=== PATIENT | female | born 1960 | race Caucasian/White ===

== ENCOUNTER 2024-04-23 15:59 | Emergency (ER) | payer BC, SELFPAY ==
[2024-04-23 16:09] VITALS: BP 162/84; PULSE 80; RESP 18; TEMP 36.2; O2SAT 95; BMI 68.7
--- NOTE | 2024-04-23 16:44 | CRLHL7_ITS ---
For Patients: As a result of the Cures Act, medical imaging exams and procedure reports are released immediately into your electronic medical record. You may view this report before your referring provider. If you have questions, please contact your health care provider. Indication: Injury Technique: Three views of the left knee Comparison: None Findings/Impression: No acute fracture or malalignment. Small suprapatellar joint effusion. Minimal tricompartmental osteoarthritic degenerative changes. No suspicious osseous lesions. Os fabella. The soft tissues are unremarkable. Dictated by Rodolfo Ambriz MD @ 04/23/2024 5:42:10 PM (Electronically Signed)
--- NOTE | 2024-04-23 18:14 | ED_ITS ---
HPI - Extremity Injury (Lower) General Time Seen by Provider: 18:14 Date Seen: 04/23/24 Chief Complaint: Extremity Pain/Injury, Lower Stated Complaint: Left knee pain Time Seen by Provider: 04/23/24 18:14 Source: patient and RN notes reviewed Mode of arrival: ambulatory Limitations: no limitations History of Present Illness HPI Narrative: Tarah is a very pleasant 64-year-old female with a remote history of gout, severely elevated BMI of 68, who comes to the emergency room with complaints of left knee pain. Patient notes that she also has sciatica but usually feels that pain going down the outside of her left leg but today notes pain on the inside of her right knee. She states that on April 04 she was at work and when she stood up she felt a crack in her left knee. She was able to walk on it afterwards but it was painful. It has become gradually worse and last week she saw physician curriculum assistant principal Bessy Ham at the [facility] at which time she was put on prednisone. Patient feels that her pain has actually gotten worse since that time. She describes a lot of pressure in the knee and states that she has ?done with the pain?. She notes that her blood sugars are elevated because she is taking prednisone. She notes that the prednisone has also not helped her sciatica. She has not noticed any redness in the knee. She denies any other tr auma. She notes normal x-rays at the [facility]. Patient noted to have a pyelonephritis last month treated with antibiotics. Has not had fever or chills since that time. Related Data Home Medications ?Medication ?Instructions ?Recorded ?Confirmed albuterol sulfate 2.5 mg/3 mL mg 04/23/24 (0.083 %) solution for nebulization albuterol sulfate 90 mcg/actuation inhalation 04/23/24 aerosol inhaler budesonide 0.5 mg/2 mL suspension mg 04/23/24 for nebulization cyclobenzaprine 10 mg tablet 10 mg PO 3XD 04/23/24 04/23/24 dulaglutide 3 mg/0.5 mL mg subcut 04/23/24 subcutaneous [facility] epinephrine 0.3 mg/0.3 mL 1 mg IM DAILY 04/23/24 04/23/24 injection, auto-injector escitalopram oxalate 20 mg tablet 20 mg PO DAILY 04/23/24 04/23/24 fluconazole 150 mg tablet PO 04/23/24 fluticasone propionate 115 2 puff inhalation BID 04/23/24 04/23/24 mcg-salmeterol 21 mcg/actuation HFA inhaler (Advair HFA) hydrochlorothiazide 25 mg tablet 25 mg PO DAILY 04/23/24 04/23/24 insulin degludec 100 unit/mL 70 unit subcut HS 04/23/24 04/23/24 subcutaneous solution (Tresiba U-100 Insulin) insulin lispro 100 unit/mL subcut 04/23/24 subcutaneous solution (Humalog U-100 Insulin) levothyroxine 50 mcg tablet 50 mcg PO DAILY 04/23/24 04/23/24 methylprednisolone 4 mg tablets in mg PO DIRECTED 04/23/24 a dose pack metoprolol succinate 50 mg 50 mg PO DAILY 04/23/24 04/23/24 tablet,extended release 24 hr nystatin 100,000 unit/gram topical 1 applic topical BID 04/23/24 04/23/24 cream omeprazole 40 mg capsule,delayed 40 mg PO BID 04/23/24 04/23/24 release ondansetron 4 mg disintegrating 4 mg PO Q8H PRN nausea/vomiting 04/23/24 04/23/24 tablet sertraline 50 mg tablet 50 mg PO DAILY 04/23/24 04/23/24 simvastatin 10 mg tablet 10 mg PO QPM 04/23/24 04/23/24 tiotropium bromide 2.5 2 puff inhalation DAILY 04/23/24 04/23/24 mcg/actuation mist for inhalation (Spiriva Respimat) Allergies Allergy/AdvReac Type Severity Reaction Status Date / Time lisinopril Allergy Mild cough Verified 04/23/24 16:18 metformin (From Glucophage) Allergy Mild vomiting Verified 04/23/24 16:18 azithromycin (From Zithromax) Allergy chest pain Verified 04/23/24 16:18 and difficulty breathing beetles Allergy swelling Uncoded 04/23/24 16:18 robertson garrick and ragweed Allergy wheezing Uncoded 04/23/24 16:18 Review of Systems Status of ROS: Reports: 6 or more systems reviewed and unremarkable except as noted in History and below Const: Denies: fever or chills Exam Narrative: Exam Narrative: Patient is alert and oriented. She is lying on the gurney in room 6. No acute distress. External ears eyes nose clear. Heart with regular rate and rhythm and lungs are clear bilaterally. Abdomen soft. Examination of the left knee shows tenderness along the medial joint line. No evidence of effusion or edema or erythema. Due to body habitus it would be challenging to rule out infusion completely. No pain with palpation in the popliteal fossa. Kneecap is mobile without pain. Pain Const: Vital Signs, click to edit/add: Vital Signs - 24 hr 04/23/24 16:09 Temperature 97.1 F L Pulse Rate [Pulse Oximeter] 80 Respiratory Rate 18 Blood Pressure [Ri ght Forearm] 162/84 H Pulse Oximetry 95 Oxygen Delivery Me thod Room Air Documenting provider has reviewed patient's vital signs: yes Course Course ED Course: Differential diagnosis includes but is not limited to gout, internal derangement of the knee, occult fracture. At this time patient notes negative x-rays at the [facility]. Will attempt CT of the left knee although I do have concerns regarding body habitus compromising this test. Patient is receptive to this plan. Reevaluation(s) Reevaluation #1: Patient noted continued pain and thus did give her a dose of [place] 5/325 p.o.. She did not think it helped very much but I think objectively she seems somewhat improved. Vital Signs Vital signs: Initial Vital Signs Temperature 97.1 F L 04/23/24 16:09 Temperature Source Temporal Artery Scan 04/23/24 16:09 Pulse Rate 80 04/23/24 16:09 Respiratory Rate 18 04/23/24 16:09 Blood Pressure 162/84 H 04/23/24 16:09 Blood Pressure Mean 110 H 04/23/24 16:09 Blood Pressure Position Sitting 04/23/24 16:09 Pulse Oximetry 95 04/23/24 16:09 Oxygen Delivery Method Room Air 04/23/24 16:09 Vital Signs Temperature 97.1 F L 04/23/24 16:09 Pulse Rate 80 04/23/24 16:09 Respiratory Rate 18 04/23/24 16:09 Blood Pressure 162/84 H 04/23/24 16:09 Pulse Oximetry 95 04/23/24 16:09 Oxygen Delivery Method Room Air 04/23/24 16:09 Temperature 97.1 F L 01/03/25 16:09 Pulse Rate 80 04/23/24 16:09 Respiratory Rate 18 04/23/24 16:09 Blood Pressure 162/84 H 04/23/24 16:09 Pulse Oximetry 95 04/23/24 16:09 Oxygen Delivery Method Room Air 04/23/24 16:09 Medications Administered Medications: Discontinued Medications Generic Name Dose Route Start Last Admin Trade Name Kamran PRN Reason Stop Dose Admin Hydrocodone Bitart/Acetaminophen 1 tab 04/23/24 19:52 04/23/24 20:05 Hydrocodone-Acetamin 5-325 Mg 1 Tab PO 04/23/24 19:53 1 tab ONCE ONE Administration MDM - Extremity Injury (Lower) MDM Narrative Medical decision making narrative: 1. Left knee pain-patient had onset of left knee pain after getting up suddenly and feeling a crack in her knee on 04/04/2024. Since that time she has had worsening pain and recent medications which include prednisone, ibuprofen, Tylenol and Flexeril do not seem to help. No evidence of erythema and it is not warm to the touch to suggest a septic joint as patient does not have tachycardia or a fever. Remote history of gout but patient again does not have a red joint and has been on prednisone which certainly should of helped. I suspect that there is trauma to the ligament or cartilage of the knee based on her history and worsening symptoms. I think that continued ambulating especially given elevated BMI has caused worsening symptoms. There is edema on the anterior knee but no evidence of fluid collection or abscess. I would like the patient to stay off her knee as much as possible. We will put her in a knee immobilizer. She has a walker at home which I would like her to use. To the best of her ability would like her to stay off her knee. Did talk about need for compression stocking and movement of the ankles and calves to prevent any DVT. I would have her follow-up with orthopedics for re-evaluation. She likely needs an MRI but would need an open-sided MRI to accommodate her elevated BMI. 2. Disposition-home at this time. Will give patient [place] 5/325 1-2 tabs p.o. q.4-6 hours p.r.n. pain 18. With no refills. Further refills need to go through her primary MD. She denies a history of narcotic addiction. Would like her to limit her ibuprofen as she is currently on Medrol Dosepak. Would have her limit Flexeril and [place] together as she does have sleep apnea. Would recommend wearing her CPAP when she is sleeping. Follow-up with orthopedics as directed. Return to the ER for worsening symptoms especially fever chills redness and as needed. Medical Records Attestation: I reviewed the patient's medical records. Imaging Data Left knee CT: Attestation: I have reviewed the pertinent imaging results. My impression: . Radiologist's impression: No evident acute displaced fracture. Mild lateral patellar translation. Moderate degenerative changes of the knee. Small superior and inferior patellar enthesophytes. Small knee joint effusion. No Campoverde`s cyst. There are atherosclerotic vascular calcifications. Mild subcutaneous edema most conspicuous anteriorly. IMPRESSION: 1. No evident acute displaced fracture. 2. Moderate degenerative change of the knee. 3. Small knee joint effusion. 4. Mild subcutaneous edema in the knee most conspicuous anteriorly. Left knee x-ray: Attestation: I have reviewed the pertinent imaging results. Radiologist's impression: Findings/Impression: No acute fracture or malalignment. Small suprapatellar joint effusion. Minimal tricompartmental osteoarthritic degenerative changes. No suspicious osseous lesions. Os fabella. The soft tissues are unremarkable. Discharge Plan Discharge Clinical Impression: Knee pain, left Qualifiers: Chronicity: unspecified Qualified Code(s): M25.562 - Pain in left knee Patient Disposition: Home, Self-Care Condition: Improved Additional Instructions: Recommend continuing Medrol Dosepak. You may use Vicodin which is a combination medication of a narcotic called hydrocodone and Tylenol as needed for pain as directed. I have put this in our [facility] meds machine. Please do not use ibuprofen at this time while on a steroid. Once you are finished with the steroid you may returned ibuprofen as needed. Note that Vicodin can cause constipation so you may want to start on a stool softener. Follow-up with our orthopedic specialists by calling [phone] for appointment. You likely will need MRI. Stay off feet for now. However, please consider using support stockings as well as moving legs to prevent formation of blood clots. Return to the emergency room for fever, worsening symptoms and as needed. Prescriptions: No Action cyclobenzaprine 10 mg tablet 10 mg PO 3XD albuterol sulfate 2.5 mg /3 mL (0.083 %) solution for nebulization Patient Comments: [NO ORIGINAL SIG] fluconazole 150 mg tablet PO budesonide 0.5 mg/2 mL suspension for nebulization Patient Comments: [NO ORIGINAL SIG] hydrochlorothiazide 25 mg tablet 25 mg PO DAILY epinephrine 0.3 mg/0.3 mL auto-injector 1 mg IM DAILY albuterol sulfate 90 mcg/actuation HFA aerosol inhaler inhalation escitalopram oxalate 20 mg tablet 20 mg PO DAILY fluticasone propion-salmeterol [Advair HFA] 115-21 mcg/actuation HFA aerosol inhaler 2 puff inhalation BID insulin degludec [Tresiba U-100 Insulin] 100 unit/mL solution 70 unit subcut HS Trulicity 3 mg/0.5 mL pen injector subcut metoprolol succinate 50 mg tablet extended release 24 hr 50 mg PO DAILY simvastatin 10 mg tablet 10 mg PO QPM omeprazole 40 mg capsule,delayed release(DR/EC) 40 mg PO BID levothyroxine 50 mcg tablet 50 mcg PO DAILY nystatin 100,000 unit/gram cream 1 applic topical BID insulin lispro [Humalog U-100 Insulin] 100 unit/mL solution subcut methylprednisolone 4 mg tablets,dose pack PO DIRECTED ondansetron 4 mg tablet,disintegrating 4 mg PO Q8H PRN (Reason: nausea/vomiting) sertraline 50 mg tablet 50 mg PO DAILY Spiriva Respimat 2.5 mcg/actuation mist 2 puff inhalation DAILY Follow Up/Referrals: Antonette James MD [Primary Care Provider] - Stand Alone Forms: [employer] Info Instructions
--- NOTE | 2024-04-23 18:46 | CRLHL7_ITS ---
For Patients: As a result of the Century Cures Act, medical imaging exams and procedure reports are released immediately into your electronic medical record. You may view this report before your referring provider. If you have questions, please contact your health care provider. INDICATION: Three weeks of medial knee pain COMPARISON: Same day left knee radiograph TECHNIQUE: CT of the left knee without intravenous contrast. FINDINGS: No evident acute displaced fracture. Mild lateral patellar translation. Moderate degenerative changes of the knee. Small superior and inferior patellar enthesophytes. Small knee joint effusion. No Campoverde`s cyst. There are atherosclerotic vascular calcifications. Mild subcutaneous edema most conspicuous anteriorly. IMPRESSION: 1. No evident acute displaced fracture. 2. Moderate degenerative change of the knee. 3. Small knee joint effusion. 4. Mild subcutaneous edema in the knee most conspicuous anteriorly. Please note that all CT scans at this facility use dose modulation, iterative reconstruction, and/or weight-based dosing when appropriate to reduce radiation dose to as low as reasonably achievable. Dictated by Jermain Fuentes MD @ 04/23/2024 8:34:42 PM (Electronically Signed)
--- OUTSIDE RECORDS SUMMARY | 2024-04-23 18:51 | XMS_ITS | Clinical Summary ---
Author Organization [employer] [facility] Address [place], [place] [address] Care Team Providers Care Gravedigger Name Role Phone Antonette James MD Primary Care Prov ider Andrew Bower Unavailable Unavailab Ramirez Garcia PharmD Unavailable [phone] Keyanna Figueroa RN Unavailable [phone] Allergies Active Allergy Reactions Criticality Noted Date Comments Metformin GI Upset 04/28/2007 Ramirez Hernandez (Solidago Canadensis) Wheezing 04/28/2007 Hymenoptera Allergenic Extract Edema 04/28/2007 Beetle bite Lisinopril Cough 09/26/2016 Was clear she doesn't want to try anything with remote chance of breathing difficulties Also classifies this as an intolerance, not a true allergy Losartan Cough 09/26/2016 Ragweed Wheezing 04/28/2007 Azithromycin Laryngospasm 04/28/2007 Medications MULTIVITAMIN TAB take 1 tablet by oral route once daily with food 0 04/28/19 08 Active CLARITIN 10 MG TAB take 1 tablet (10 mg) by oral route once daily 0 04/28/19 08 Active ibuprofen (ADVIL; MOTRIN) 200 mg tablet Take 1 tablet by mouth every 4 hours if needed. 0 12/29/19 10 Active cholecalciferol (VITAMIN D) 1,000 unit capsule Take 2 capsules by mouth once daily. 0 06/27/19 11 Active aspirin enteric coated (HALFPRIN) 162 mg tablet Take 1 tablet by mouth once daily with a meal. Takes 180 mg daily 06/05/19 16 Active ONETOUCH [id number] :Diabetes mellitus type 2, uncomplicated (HC) 1 Each 0 06/05/19 16 Active omega-3 fatty acids-vitamin E (FISH OIL) 1,000 mg cap Take 1 capsule by mouth 2 times daily. 0 06/06/19 17 Active tfjpwmoh-jmem-bhu 0-B-hlxo-bosw (OSTEO BI-FLEX TRIPLE STRENGTH) 750 mg-644 mg- 30 mg-1 mg tabIndications:Al lergic arthritis of left ankle Take by mouth 2 times daily. 0 10/29/19 18 Active acetaminophen (TYLENOL EXTRA STRGTH) 500 mg tablet Take 2 tablets by mouth 2 times daily. Max acetaminophen dose: 4000mg in 24 hrs. Take with 200 mg ibuprofen 500 tablet 12/26/19 19 Active guaiFENesin (MUCINEX) 600 mg Extended-Release tabletIndications :Cough Take 1-2 tablets by mouth 2 times daily if needed for Expectoration. 30 tablet 1 04/05/20 19 Active inhalational spacing deviceIndications :Moderate persistent asthma without complication For home use. Use with inhalers 1 Each 1 5:19 PM CDT 09/13/19 21 Active acetaminophen (TYLENOL) 325 mg tabletIndications :S/P D&C (status post dilation and curettage) Take 1-2 Tablets (325-650 mg) by mouth every 4 hours if needed (mild pain). Max acetaminophen dose: 4000mg in 24 hrs. 100 Tablet 08/17/19 23 Active levonorgestrel (Mirena) 20 mcg/24 hours (8 yrs) 52 mg intrauterine device (IUD) Inject 1 Device intrauterine one time. 0 Active predniSONE (DELTASONE) 10 mg tabletIndications :Wheezing,Moderat e persistent asthma with exacerbation Take 6 tablets by mouth once daily for 3 days, then decrease by one tablet every 3 days. 62 Tablet 4 2:52 PM CDT 07/14/19 24 Active NebulizerIndicati ons:Wheezing,Mode rate persistent asthma with exacerbation Nebulizer, disposable neb kit x 4, reuseable neb kit x 1, mask x 1, filters x 1. Frequency of use: daily; Medication: albuterol Length of need: prn months 1 Each 07/14/19 24 Active predniSONE (DELTASONE) 10 mg tabletIndications :Moderate persistent asthma without complication 4 tabs for 5 days then decrease by 1 tab every 3 day until 1/2 tab for 4 days then stop. 40 Tablet 4 4:04 PM CDT 07/29/19 24 Active dulaglutide (Trulicity) 3 mg/0.5 mL subcutaneous penIndications:Di abetes mellitus without complication (HC) Inject 3 mg subcutaneous once weekly. mondays 4 mL 6 4 3:48 PM MANAGER DIVISION 11/27/19 24 Active EPINEPHrine (EpiPen) 0.3 mg/0.3 mL auto-injectorIndi cations:Allergic reaction, subsequent encounter Inject 0.3 mg intramuscular one time if needed for Allergic Reaction. 2 Each 4 4 3:13 PM CDT 11/27/19 24 Active fluticasone (50 mcg per actuation) nasal solution (FLONASE)Indicati ons:Environmental allergies Inhale 2 Sprays in both nostrils once daily. 48 g 3 5 4:51 PM MANAGER DIVISION 11/27/19 24 Active fluticasone propion-salmetero L (ADVAIR) 115-21 mcg/actuation inhalerIndication s:Asthma, extrinsic, unspecified asthma severity, uncomplicated Inhale 2 Puffs by mouth two times daily. 36 g 3 5 4:51 PM MANAGER DIVISION 11/27/19 24 Active hydroCHLOROthiazi de 25 mg tabletIndications :Hypertension, unspecified type Take 1 Tablet (25 mg) by mouth once daily. 90 Tablet 3 5 4:51 PM MANAGER DIVISION 11/27/19 24 Active insulin degludec (Tresiba U-100 Insulin) 100 unit/mL solutionIndicatio ns:Diabetes mellitus without complication (HC) Inject 0.68 mL (68 units) subcutaneous at bedtime. 60 mL 2 4 3:34 PM CDT 11/27/19 24 Active insulin lispro (HumaLOG U-100 Insulin) 100 unit/mL injectionIndicati ons:Diabetes mellitus without complication (HC) Inject 10-12 units subcutaneous three times daily before meals. 30 mL 3 5 4:51 PM MANAGER DIVISION 11/27/19 24 Active levothyroxine (SYNTHROID) 50 mcg tabletIndications :High serum thyroid stimulating hormone (TSH) Take 1 Tablet (50 mcg) by mouth before breakfast. 90 Tablet 5 4 3:16 PM MANAGER DIVISION 11/27/19 24 Active metoprolol succinate (TOPROL XL) 50 mg sustained-release tabletIndications :Hypertension, unspecified type Take 1 Tablet (50 mg) by mouth once daily. 90 Tablet 3 4 4:43 PM CDT 11/27/19 24 Active montelukast (Singulair) 10 mg tabletIndications :Hypertension, unspecified type Take 1 Tablet (10 mg) by mouth at bedtime. 90 Tablet 3 5 4:51 PM MANAGER DIVISION 11/27/19 24 Active omeprazole (PRILOSEC) 40 mg Delayed-Release capsuleIndication s:Chronic GERD Take 1 capsule (40 mg) by mouth 2 times daily. 180 Capsule 3 5 4:51 PM MANAGER DIVISION 11/27/19 24 Active simvastatin (ZOCOR) 10 mg tabletIndications :Diabetes mellitus without complication (HC) Take 1 Tablet (10 mg) by mouth at bedtime. 90 Tablet 3 5 4:51 PM MANAGER DIVISION 11/27/19 24 Active albuterol 0.083% (2.5 mg/3 mL) neb solutionIndicatio ns:Moderate persistent asthma without complication Inhale 3 mL (2.5 mg) via a nebulizer every 4 hours if needed for Shortness Of Breath, Wheezing or Cough. 540 mL 4 4 3:34 PM CDT 11/27/19 24 Active albuterol-ipratro pium (DUONEB) (2.5-0.5 mg) in 3 mL NEBULIZATION solutionIndicatio ns:Moderate persistent asthma without complication Inhale 3 mL via a nebulizer 4 times daily if needed for Shortness Of Breath or Wheezing. 540 mL 12 4 3:34 PM CDT 11/27/19 24 Active ammonium lactate 12 % creamIndications: Diabetes mellitus without complication (HC) Apply topically to affected area(s) two times daily. 280 g 11 11/27/19 24 Active blood sugar diagnostic (Kyphauch Ultra Test) stripIndications: Diabetes mellitus without complication (HC) Use as directed to test blood glucose three times daily. 400 Each 3 5 4:51 PM MANAGER DIVISION 11/27/19 24 Active cyclobenzaprine (FLEXERIL) 10 mg tabletIndications :Muscle pain Take 1 Tablet (10 mg) by mouth 3 times daily if needed for Muscle Spasm. 180 Tablet 3 4 3:48 PM MANAGER DIVISION 11/27/19 24 Active insulin syringe-needle u-100 (TRUEplus Insulin) 1 mL 31 gauge x 5/16Indications:D iabetes mellitus without complication (HC) Use with insulin up to 5 times daily. 500 Each 3 5 4:51 PM MANAGER DIVISION 11/27/19 24 Active lancets 33 gauge miscIndications:D iabetes mellitus without complication (HC) Dispense item covered by pt ins. E11.9 NIDDM type II - Test 3 times/day, Reason: High A1C. 400 Each 3 11/27/19 24 Active tiotropium bromide (Spiriva Respimat) 2.5 mcg/actuation mist for inhalationIndicat ions:Moderate persistent asthma without complication Inhale 2 Puffs by mouth once daily. 4 g 4 5 4:51 PM MANAGER DIVISION 11/27/19 24 Active albuterol HFA (Ventolin HFA) 90 mcg/actuation inhalerIndication s:Moderate persistent asthma without complication Inhale 2 puffs twice daily and then as needed every 4 hours. Extra inhaler for purse please 25.5 g 11 5 4:51 PM MANAGER DIVISION 12/15/19 24 Active nystatin 100,000 unit/gram creamIndications: Skin yeast infection Apply topically to affected area(s) two times daily. 30 g 4 1:03 PM CDT 01/08/20 24 Active FreeStyle Awais 2 SensorIndications :Diabetes mellitus without complication (HC) To be used to read blood sugars per field radio operator's directions. Change each sensor every 14 days 6 Each 12 5 4:51 PM MANAGER DIVISION 01/12/20 24 Active ondansetron (ZOFRAN ODT) 4 mg disintegrating tabletIndications :Nausea Place 1 Tablet (4 mg) on the tongue every 8 hours if needed for Nausea/Vomiting. 15 Tablet 04/06/20 24 Active budesonide (PULMICORT RESPULES) 0.5 mg/2 mL neb suspensionIndicat ions:Moderate persistent asthma without complication Inhale 2 mL (0.5 mg) via a nebulizer two times daily. 180 mL 5 4:51 PM MANAGER DIVISION 04/21/19 25 Active sertraline (ZOLOFT) 50 mg tabletIndications :Dysthymia Take 1 Tablet (50 mg) by mouth once daily in the morning. 30 Tablet 5 4:51 PM MANAGER DIVISION 04/21/19 25 Active COVID-19 antigen test (Flowflex COVID-19 Ag Home Test) kit Use as directed on packaging. 4 Kit 5 4:51 PM MANAGER DIVISION 04/19/20 24 Active methylPREDNISolon e (Medrol, Brian,) 4 mg tabletIndications :Acute midline low back pain with left-sided sciatica Take by mouth as instructed per packaging. 21 Tablet 04/19/20 24 Active budesonide (PULMICORT RESPULES) 0.5 mg/2 mL neb suspensionIndicat ions:Moderate persistent asthma without complication Inhale 2 mL (0.5 mg) via a nebulizer two times daily. 180 mL 4 4 4:30 PM CDT 12/12/19 23 024 Discontin ued(Reord er (E-cancel not sent)) COVID-19 antigen test (Flowflex COVID-19 Ag Home Test) kit Use as directed on packaging. 4 Kit 4 4:43 PM CDT 03/17/20 23 024 Discontin ued(Reord er (E-cancel not sent)) doxycycline 100 mg capsuleIndication s:Cellulitis of skin,Abscess Take 1 Capsule (100 mg) by mouth two times daily. 14 Capsule 4 1:03 PM CDT 01/08/20 24 024 Discontin ued(*[place] no longer taking) sertraline (ZOLOFT) 50 mg tabletIndications :Dysthymia Take 1 Tablet (50 mg) by mouth once daily in the morning. 90 Tablet 4 3:34 PM CDT 01/21/20 24 024 Discontin ued(Reord er (E-cancel not sent)) ondansetron (ZOFRAN ODT) 4 mg disintegrating tabletIndications :Nausea Place 1 Tablet (4 mg) on the tongue one time for 1 dose. 1 Tablet 04/06/20 24 024 cefadroxil (DURICEF) 1 gram tabletIndications :Pyelonephritis Take 1 g by mouth two times daily for 10 days. 20 Tablet 04/06/20 24 024 ciprofloxacin (CIPRO) 500 mg tabletIndications :Pyelonephritis Take 1 Tablet (500 mg) by mouth two times daily before meals for 7 days. 14 Tablet 04/15/20 24 024 Discontin ued(*[place] no longer taking) Hospital, Clinic, or Other Facility Administered Medication Ordered Dose Route Frequency Start Date End Date Status levonorgestrel (MIRENA) 20 mcg/24 hours (8 yrs) 52 mg intrauterine device (IUD) 1 DeviceIndications:Abnormal uterine bleeding due to endometrial polyp 1 Device IU Q 5 YEARS 08/21/2022 Active cefTRIAXone (ROCEPHIN) injection 1 gIndications:urinary tract infection 1 g IM ONE TIME 04/06/2024 04/06/2024 Ended Active Problems Problem Noted Date Diagnosed Date IUD (intrauterine device) in place 09/20/2022 S/P D&C (status post dilation and curettage) Pap smear for cervical cancer screening 10/26/19 Overview (01/03/2022): Plan: Pap and HPV 10/2026 Lumbar disc herniation with radiculopathy 2016 Overview (01/08/2017): ~ August 2016: L4-L5 Right ILESI by Dr. Kohli. ~ October 01, 2016: Right L5-S1 TFESI. by Dr. Kohli. ~ October 2016: Right sacroiliac joint injection by Dr. Kohli 90% pain relief ~ Dec 2016: Right Sacroiliac joint injection by Dr. Kohli 95% pain relief. Ventral hernia, recurrent 10/01/2011 Vitamin D deficiency 03/20/2010 Personal history of colonic polyps 02/21/2009 Overview (01/11/2021): Colonoscopy 04/2010 polyps repeat in 3 years Colonoscopy 07/2015 polyp repeat in 5 years Colonoscopy 12/2020 TA,SSA, repeat in 5 years with propofol TO 07/07/08 AHI-24 07/25/2008 Type II or unspecified type diabetes mellitus without mention of complication, not stated as uncontrolled 04/28/2007 Unspecified asthma(493.90) 04/28/2007 Esophageal reflux 04/28/2007 Overview (08/04/2008): EGD 07/2008 normal Unspecified essential hypertension 04/28/2007 Other and unspecified hyperlipidemia 04/28/2007 Morbid obesity 04/28/2007 Resolved Problems Problem Noted Date Diagnosed Date Resolved Date Foreign body in foot 06/05/2015 023 Overview (06/05/2015): See Xray 2014 Encounters Date Type Department Care Team Description 04/19/2024 2:00 PM MANAGER DIVISION Ancillary Procedure [facility] [address] [place] [address] Arrived 04/19/2024 1:15 PM MANAGER DIVISION Office Visit [facility] [address] [place] [address] Bessy Ham PA Knee Pain/problem 04/19/2024 Travel 04/16/2024 Refill [facility] [address] [place] [address] Antonette James MD Refill Request (Pulmicort neb soln, Sertraline ) 04/15/2024 2:40 PM MANAGER DIVISION Office Visit [facility] [address] [place] [address] David Sandhu MD Follow Up (Kidney infection- still having the pain in the back and lower abdomen, and nauseous ); Knee Pain/problem (Left knee- no known injury - painful ) 04/15/2024 Travel 04/06/2024 3:28 PM MANAGER DIVISION - 04/06/2024 11:59 PM MANAGER DIVISION Hospital Encounter [facility] [address] [place] [address] Yumi Noonan NP Flank pain; Lower abdominal pain 04/06/2024 1:30 PM MANAGER DIVISION Office Visit [facility] [address] [place] [address] Yumi Noonan, [facility] Dysuria; Flank Pain; Vomiting 04/06/2024 Travel 01/26/2024 Orders Only [facility] Scanner 1 scan: (1-Ord) [facility], 01/26/2024 from Last 3 Months Immunizations Name Administration Dates Next Due COVID-19 vaccine (Anam Mobile[employer] NTech 30mcg/0.3mL) PF, MDV 05/30/2020,05/08/2020 INFLUENZA, IIV3 PF (AGE >= 6 MO) 02/23/2024 Influenza Virus, Unspecified 02/22/2015,02/14/20 14 Influenza, IIV3 (Age 6-35 mos) 01/29/2013 Influenza, IIV3 (Age >=3 years) 01/31/2009 Influenza, IIV4 03/06/2023,,03/20/2021,2019,02/25/2019,03/17/2018,03/03/2017,1 05/05/2015 MMR 05/17/1991 Pneumococcal Poly,23-Valent (Pneumovax) 02/19/2006 Td (Age >=7 Years) 12/11/2022,11/19/2005 Tdap 04/07/2012 Family History Medical History Relation Name Comments Heart failure Father Hypertension Father Lung cancer Maternal Grandfather Cancer-colon Maternal Grandmother Cancer-breast Mother 36 age 40 Coronary artery disease Paternal Grandfather Cancer-breast Paternal Grandmother Hypertension Sister 1 Other Sister 2 migraines Relation Name Status Comments Father Maternal Grandfather (Age 50s) l leora ca Maternal Grandmother (Age 88) de mentia Mother (Age 40) diagnosed breast ca age 36 Paternal Grandfather (Age 50) CA D Paternal Grandmother (Age 84) CA D Sister 1 Alive Sister 2 Alive Social History Tobacco Use Types Packs/Day Years Used Date Smoking Tobacco: Passive Smo ke Exposure - Never Smoker Smokeless Tobacco: Never Tobacco Cessation:Counseling Given: No Comments: smokes in house, only home on the weekends Alcohol Use Standard Drinks/Week Comments Yes 0 (1 standard drink = 0.6 oz pur e alcohol) rare [facility] Utilities Answer Date Recorded Do you have trouble paying f or utilities (for example, heat, electricity, water, phone)? Yes 05/02/2023 PHQ-2 Answer Date Recorded PHQ-2 TOTAL SCORE 5 06/03/2023 Social Connections Answer Date Recorded Do you often feel lonely or isolated from those around you? 0 05/02/2023 Financial Resource Strain Answer Date R ecorded Difficulty of Paying Living Expenses 3 05/02/2023 Difficulty of Paying Living Expenses Not on file 05/02/2023 Food Insecurity Answer Date Recorded Do you worry your food will run out before you are able to buy more? 1 05/02/2023 Transportation Needs Answer Date Record ed Does lack of transportation keep you from medica l appointments? 1 05/02/2023 Does lack of transportation keep you from work, meetings or getting things that you need? 1 05/02/2023 Housing Stability Answer Date Recorded What is your housing situation today? 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 on file Not on file Obstetrics History Para Term AB IAB SAB Ectopic Multiple Livin g Live Births 3 3 3 3 3 Date Outcome GA Total Labor Labor/2nd/3rd Weight Sex Type Anes PTL Jes A1 A5 Name Clin Term F Vag Living Term F Vag Living Term M Vag Living Last Filed Vital Signs Vital Sign Reading Time Taken Comments Blood Pressure 166/95 04/19/2024 1:24 PM MANAGER DIVISION Pulse 100 04/19/2024 1:24 PM MANAGER DIVISION Temperature 36.4 C (97.5 F) 04/06/2024 4:59 PM MANAGER DIVISION Respiratory Rate 20 04/06/2024 4:59 PM MANAGER DIVISION Oxygen Saturation 95% 04/19/2024 1:24 PM MANAGER DIVISION Inhaled Oxygen Concentration - - Weight 192.4 kg (424 lb 3.2 oz) 024 12:24 PM CDT Height 161.3 cm (5' 3.5) 11/27/2023 12 :24 PM CDT Body Mass Index 73.96 11/27/2023 12:24 PM CDT Plan of Treatment Upcoming Encounters Date Type Department Care Team (Late st Contact Info) Description 04/29/2024 12:45 PM MANAGER DIVISION Office Visit [facility] [address] [place] [address] Antonette James MD [address] [place] [address] Health Maintenance Due Date Last Done Comments Pneumococcal series for age 50+ (2 of 2 - PCV) 02/19/2007 02/19/2006 Zoster (shingles) series for age 50+ (1 of 2) 2011 RSV vaccine for adults or (1 - Risk 60-74 years 1-dose series) 2021 COVID-19 vaccine series ( - season) 2023 05/30/2020, 05/08/2020 Depression screening for age 12+ 06/10/2024 06/10/2023, 06/03/2023, 07/25/2022, Additional history exists Mammogram for age 45-75 07/28/2024 07/29/19 24, 10/25/2021, 09/12/2020, Additional history exists BMI (ht and wt on same day) for age 18+ 11/26/2024 11/27/2023, 12/11/2022, 07/24/2022, Additional history exists Colonoscopy through age 75 01/08/202601/08, 01/08/2021, 07/24/2015, Additional history exists Pap test for age 21-65 10/25/2026 , 10/25/2021, 07/13/2018, Additional history exists Lipids for age 45-75 11/23/2028 11/24/2023, 12/11/2022, 01/24/2022, Additional history exists Tetanus booster 12/11/2032 12/11/2022, 03/21, 11/19/2005 Tdap Completed 04/07/2012 Hepatitis C screening for ag e 18-79 Completed 08/22/2016 HIV for age 15-65 Completed 08/18/2017 Influenza for age 50-64 Completed 02/23/20 24, 03/06/2023, 03/01/2022, Additional history exists Procedures Procedure Name Priority Date/Time Associated Diagnosis Comments XR TIBIA AND FIBULA 2 VIEWS LEFT TACO 04/19/2024 1:55 PM MANAGER DIVISION Pain in left gomez URINALYSIS MACROSCOPIC - [facility] ONLY POC DIP (QUEST) Routine 04/15/2024 3:28 PM MANAGER DIVISION Pyelonephritis URINALYSIS MICROSCOPIC Routine 04/15/2024 3:26 PM MANAGER DIVISION Pyelonephritis URINE CULTURE Routine 04/15/2024 3:26 PM MANAGER DIVISION Pyelonephritis CBC WITH AUTO DIFFERENTIAL Routine 04/15/2024 3:26 PM MANAGER DIVISION Pyelonephritis BASIC METABOLIC PANEL Routine 04/15/2024 3:26 PM MANAGER DIVISION Pyelonephritis CT ABDOMEN PELVIS WO STAT 04/06/2024 4:06 PM MANAGER DIVISION Flank pain Lower abdominal pain URINALYSIS MICROSCOPIC STAT 04/06/2024 2:48 PM MANAGER DIVISION Urinary symptom or sign CBC WITH AUTO DIFFERENTIAL STAT 04/06/2024 2:48 PM MANAGER DIVISION Urinary symptom or sign Flank pain BASIC METABOLIC PANEL STAT 04/06/2024 2:48 PM MANAGER DIVISION Urinary symptom or sign Flank pain CBC WITH AUTO DIFFERENTIAL STAT 04/06/2024 2:48 PM MANAGER DIVISION Urinary symptom or sign Flank pain URINE CULTURE STAT 04/06/2024 2:48 PM MANAGER DIVISION Urinary symptom or sign UA W/ SEDIMENT EXAM REFLEXED PER CRITERIA STAT 04/06/2024 2:48 PM MANAGER DIVISION Urinary symptom or sign SCAN-EYE EXAM 01/26/2024 12:00 AM CDT LIPID PANEL W REFLEX MEASURED LDL Routine 11/24/2023 11:08 AM CDT Diabetes mellitus without complication (HC) XR MAMMO CURT BILAT SCREEN Routine 07/29/2023 11:00 AM CDT Visit for screening mammogram HPV HIGH RISK Routine 10/25/2021 11:20 AM CDT Pap smear for cervical cancer screening COLONOSCOPY SCREENING Routine 01/08/2021 12:00 AM CDT Polyp of colon, unspecified part of colon, unspecified type ANTI HIV 1/2 Routine 08/18/2017 12:14 PM CDT Screening examination for venereal disease ANTI HCV Routine 08/22/2016 9:48 AM CDT Need for hepatitis C screening test from Last 3 Months or Most Recently Relevant to Health Maintenance Results * XR TIBIA AND FIBULA 2 VIEWS LEFT (04/19/2024 1:55 PM MANAGER DIVISION) Anatomical Region Laterality Modality Tibia Computed Radiogr aphy 04/19/2024 2:00 PM MANAGER DIVISION Narrative 04/19/2024 2:00 PM MANAGER DIVISION For Patients: As a result of the Cures Act, medical imaging exams and procedure reports are released immediately into your electronic medical record. You may view this report before your referring provider. If you have questions, please contact your health care provider. Indication: Pain in left gomez Technique: Two views left tibia and fibula Comparison: None Findings: No fracture. Degenerative changes. No destructive lesion. Impression: No acute or significant findings. Dictated by Denver Dan MD @ 04/19/2024 2:00:19 PM (Electronically Signed) Procedure Note Denver Dan MD - 04/19/2024 For Patients: As a result of the Cures Act, medical imagingexams and procedure reports are released immediately into your electronicmedical record. You may view this report before your referring provider.If you have questions, please contact your health care provider. Indication: Pain in left gomez Technique: Two views left tibia and fibula Comparison: None Findings: No fracture. Degenerative changes. No destructive lesion. Impression: No acute or significant findings. Dictated by Denver Dan MD @ 04/19/2024 2:00:19 PM (Electronically Signed) [facility] Final Result * (ABNORMAL) POCT Urinalysis Dipstick Only (04/15/2024 3:28 PM MANAGER DIVISION) PH 6.5 5.0 - 8.0 [facility] SPECIFIC GRAVITY 1.015 1.001 - 1.035 [facility] GLUCOSE NEGATIVE NEGATIVE [facility] BILIRUBIN NEGATIVE NEGATIVE [facility] KETONES NEGATIVE NEGATIVE [facility] OCCULT BLOOD TRACE(A) NEGATIVE [facility] PROTEIN NEGATIVE NEGATIVE [facility] NITRITE NEGATIVE NEGATIVE [facility] LEUKOCYTE ESTERASE NEGATIVE NEGATIVE [facility] Urine URINE SPECIMEN / Unknown 04/15/2024 3:28 PM MANAGER DIVISION 04/15/2024 3:28 PM MANAGER DIVISION David Sandhu MD URINE Final Result [facility] [address] [place] [address], [facility] [address] [place] [address] * (ABNORMAL) URINALYSIS MICROSCOPIC (04/15/2024 3:26 PM MANAGER DIVISION) Only the most recent of2 resultswithin the time period is included. RBC 0-2 0-2, None Seen /HPF 04/16/2024 12:10 AM MANAGER DIVISION [facility] WBC 0-2 0-2, 3-5, None Seen /HPF 04/16/2024 12:10 AM MANAGER DIVISION [facility] BACTERIA None Seen None Seen, Rare, Few Bacteria/ HPF 04/16/2024 12:10 AM MANAGER DIVISION [facility] EPITHELIAL CELLS Moderate(A ) None Seen, Few Epi/HPF 04/16/2024 12:10 AM MANAGER DIVISION [facility] HYALINE CASTS 0-2 0-2, 3-5 /LPF 04/16/2024 12:10 AM MANAGER DIVISION [facility] Urine URINE SPECIMEN / Unknown Non-Blood / Unknown 04/15/2024 3:26 PM MANAGER DIVISION 04/15/2024 3:26 PM MANAGER DIVISION David Sandhu MD URINE Final Result Performing Organization Address [facility] Co de Phone Number [facility] [address] [place] [address], * URINE CULTURE (04/15/2024 3:26 PM MANAGER DIVISION) Only the most recent of2 resultswithin the time period is included. CULTURE <10,000 CFU/mL multiple organisms 04/17/2024 11:24 AM MANAGER DIVISION [facility] Urine URINE SPECIMEN / Unknown Non-Blood / Unknown 04/15/2024 3:26 PM MANAGER DIVISION 04/15/2024 3:26 PM MANAGER DIVISION David Sandhu MD MICROBIOLOGY Final Result Performing Organization Address City/[facility]/ZIP Co de Phone Number [facility] [address] [place] [address], * CBC AND DIFFERENTIAL (04/15/2024 3:26 PM MANAGER DIVISION) WHITE BLOOD CELL COUNT 8.5 3.8 - 10.8 Thousand/u L [facility] RED BLOOD CELL COUNT 5.01 3.80 - 5.10 Million/uL [facility] HEMOGLOBIN 14.3 11.7 - 15.5 g/dL [facility] HEMATOCRIT 44.1 35.0 - 45.0 % [facility] MCV 88.0 80.0 - 100.0 fL [facility] MCH 28.5 27.0 - 33.0 pg [facility] MCHC 32.4 32.0 - 36.0 g/dL [facility] Comment: For adults, a slight decrease in the calculated MCHC value (in the range of 30 to 32 g/dL) is most likely not clinically significant; however, it should be interpreted with caution in correlation with other red cell parameters and the patient's clinical condition. RDW 13.3 11.0 - 15.0 % [facility] PLATELET COUNT 346 140 - 400 Thousand/u L [facility] MPV 10.7 7.5 - 12.5 fL [facility] ABSOLUTE NEUTROPHILS 5,882 1,500 - 7,800 cells/uL [facility] ABSOLUTE LYMPHOCYTES 1,802 850 - 3,900 cells/uL [facility] ABSOLUTE MONOCYTES 570 200 - 950 cells/uL [facility] ABSOLUTE EOSINOPHILS 204 15 - 500 cells/uL [facility] ABSOLUTE BASOPHILS 43 0 - 200 cells/uL [facility] NEUTROPHILS 69.2 % [facility] LYMPHOCYTES 21.2 % [facility] MONOCYTES 6.7 % [facility] EOSINOPHILS 2.4 % [facility] BASOPHILS 0.5 % [facility] Blood BLOOD SPECIMEN / Unknown 04/15/2024 3:26 PM MANAGER DIVISION 04/15/2024 3:27 PM MANAGER DIVISION us David Sanhdu MD HEMATOLOGY Final Result crossvertise [facility] [address] [place] [address], [facility] [address] [place] [address] * (ABNORMAL) BASIC METABOLIC PANEL (04/15/2024 3:26 PM MANAGER DIVISION) Only the most recent of2 resultswithin the time period is included. [facility] GLUCOSE 163(H) 65 - 99 mg/dL [facility] Comment: Fasting reference interval For someone without known diabetes, a glucose value >125 mg/dL indicates that they may have diabetes and this should be confirmed with a follow-up test. UREA NITROGEN (BUN) 12 7 - 25 mg/dL [facility] CREATININE 0.88 0.50 - 1.05 mg/dL [facility] EGFR 74 > OR = 60 mL/min/1. 73m2 [facility] BUN/CREATININE RATIO SEE NOTE: 6 - 22 (calc) [facility] Comment: Not Reported: BUN and Creatinine are within reference range. SODIUM 139 135 - 146 mmol/L [facility] POTASSIUM 4.3 3.5 - 5.3 mmol/L [facility] CHLORIDE 99 98 - 110 mmol/L [facility] CARBON DIOXIDE 32 20 - 32 mmol/L [facility] ELECTROLYTE BALANCE 8 7 - 17 mmol/L (calc) [facility] CALCIUM 9.2 8.6 - 10.4 mg/dL [facility] Blood BLOOD SPECIMEN / Unknown 04/15/2024 3:26 PM MANAGER DIVISION 04/15/2024 3:27 PM MANAGER DIVISION David Sandhu MD CHEMISTRY Final Result [facility]ise [facility] [address] [place] [address], [facility] [address] [place] [address] * CT ABDOMEN PELVIS WO (04/06/2024 4:06 PM MANAGER DIVISION) Anatomical Region Laterality Modality Abdomen, Pelvis, AORTA, LIVER, SPLEEN Computed Tomography 04/06/2024 4:35 PM MANAGER DIVISION Impressions 04/06/2024 4:35 PM MANAGER DIVISION 1. Bilateral perinephric stranding, right greater than left may be infectious/inflammatory in the appropriate clinical setting. No obstructing stone or discrete perinephric fluid collection. 2. Colonic diverticulosis without evidence of acute diverticulitis. Dictated by Marvin Moss MD @ 04/06/2024 4:35:13 PM Please note that all CT scans at this facility use dose modulation, iterative reconstruction, and/or weight-based dosing when appropriate to reduce radiation dose to as low as reasonably achievable. Dictated by: Marvin Moss MD @ 04/06/2024 16:35:38 (Electronically Signed) Narrative 04/06/2024 4:35 PM MANAGER DIVISION For Patients: As a result of the Cures Act, medical imaging exams and procedure reports are released immediately into your electronic medical record. You may view this report before your referring provider. If you have questions, please contact your health care provider. INDICATION: Flank pain. Lower abdominal pain. TECHNIQUE: CT abdomen and pelvis acquired without contrast. COMPARISON: None. FINDINGS: Lower chest: Mild bibasilar atelectasis. No pleural or pericardial effusions. Liver: Unremarkable. Spleen: Unremarkable. Pancreas: Unremarkable. Gallbladder and bile ducts: No calcified stones or biliary ductal dilatation. Kidneys: Bilateral perinephric stranding, right greater than left, without definite cause. No obstructing ureteral stone. No discrete perinephric fluid collection. Adrenal glands: Unremarkable. GI tract: Colonic diverticulosis without evidence of acute diverticulitis. No obstruction or focal inflammatory changes. Normal appendix. No free air or free fluid. Postoperative changes of the anterior abdominal wall. Lymph nodes: No pathologic lymphadenopathy. Vascular structures: Mild atherosclerotic disease. No abdominal aortic aneurysm. Pelvic Organs: Intrauterine device appears appropriately positioned. Adnexal regions and bladder as imaged are unremarkable. Bones: No acute or suspicious osseous abnormality. Degenerative changes spine and pelvis. Procedure Note Marvin Moss, - 04/06/2024 For Patients: As a result of the Cures Act, medical imagingexams and procedure reports are released immediately into your electronicmedical record. You may view this report before your referring provider.If you have questions, please contact your health care provider. INDICATION: Flank pain. Lower abdominal pain. TECHNIQUE: CT abdomen and pelvis acquired without contrast. COMPARISON: None. FINDINGS: Lower chest: Mild bibasilar atelectasis. No pleural or pericardialeffusions. Liver: Unremarkable. Spleen: Unremarkable. Pancreas: Unremarkable. Gallbladder and bile ducts: No calcified stones or biliary ductaldilatation. Kidneys: Bilateral perinephric stranding, right greater than left, withoutdefinite cause. No obstructing ureteral stone. No discrete perinephricfluid collection. Adrenal glands: Unremarkable. GI tract: Colonic diverticulosis without evidence of acute diverticulitis.No obstruction or focal inflammatory changes. Normal appendix. No free airor free fluid. Postoperative changes of the anterior abdominal wall. Lymph nodes: No pathologic lymphadenopathy. Vascular structures: Mild atherosclerotic disease. No abdominal aorticaneurysm. Pelvic Organs: Intrauterine device appears appropriately positioned.Adnexal regions and bladder as imaged are unremarkable. Bones: No acute or suspicious osseous abnormality. Degenerative changesspine and pelvis. IMPRESSION: 1. Bilateral perinephric stranding, right greater than left may beinfectious/inflammatory in the appropriate clinical setting. Noobstructing stone or discrete perinephric fluid collection. 2. Colonic diverticulosis without evidence of acute diverticulitis. Dictated by Marvin Moss MD @ 04/06/2024 4:35:13 PM Please note that all CT scans at this facility use dose modulation,iterative reconstruction, and/or weight-based dosing when appropriate toreduce radiation dose to as low as reasonably achievable. Dictated by: Marvin Moss MD @ 04/06/2024 16:35:38 (Electronically Signed) Yumi Noonan NP CT Final Result * (ABNORMAL) CBC WITH AUTO DIFFERENTIAL (04/06/2024 2:48 PM MANAGER DIVISION) WHITE BLOOD COUNT 14.9(H) 4.5 - 11.0 thou/cu mm 04/06/2024 3:07 PM MANAGER DIVISION [facility] RED BLOOD COUNT 4.99 4.00 - 5.20 mil/cu mm 04/06/2024 3:07 PM MANAGER DIVISION [facility] HEMOGLOBIN 14.5 12.0 - 16.0 g/dL 04/06/2024 3:07 PM MANAGER DIVISION [facility] HEMATOCRIT 44.5 33.0 - 51.0 % 04/06/2024 3:[address] [facility] MCV 89 80 - 100 fL 04/06/2024 3:[address] [facility] MCH 29.1 26.0 - 34.0 pg 04/06/2024 3:[address] [facility] MCHC 32.6 32.0 - 36.0 g/dL 04/06/2024 3:[address] [facility] RDW 14.3 11.5 - 15.5 % 04/06/2024 3:[address] [facility] PLATELET COUNT 203 140 - 440 thou/cu mm 04/06/2024 3:[address] [facility] MPV 11.0 6.5 - 11.0 fL 04/06/2024 3:[address] [facility] % NEUT 78.0 % 04/06/2024 3:[address] [facility] % LYMPH 14.7 % 04/06/2024 3:[address] [facility] % MONO 6.7 % 04/06/2024 3:[address] [facility] % EOS 0.5 % 04/06/2024 3:[address] [facility] % BASO 0.1 % 04/06/2024 3:[address] [facility] ABSOLUTE NEUTROPHILS 11.6(H) 1.7 - 7.0 thou/cu mm 04/06/2024 3:[address] [facility] ABSOLUTE LYMPHOCYTES 2.2 0.9 - 2.9 thou/cu mm 04/06/2024 3:[address] [facility] ABSOLUTE MONOCYTES 1.0(H) <0.9 thou/cu mm 04/06/2024 3:[address] [facility] ABSOLUTE EOSINOPHILS 0.1 <0.5 thou/cu mm 04/06/2024 3:[address] [facility] ABSOLUTE BASOPHILS 0.0 <0.3 thou/cu mm 04/06/2024 3:[address] [facility] Blood BLOOD SPECIMEN / Unknown [facility] / Unknown 04/06/2024 2:48 PM MANAGER DIVISION 04/06/2024 2:48 PM MANAGER DIVISION us Yumi Noonan BILINGUAL SALES CONSULTANT HEMATOLOGY Final Result [facility] [address] [facility] [place] [address] * (ABNORMAL) UA W/ SEDIMENT EXAM REFLEXED PER CRITERIA (04/06/2024 2:48 PM MANAGER DIVISION) COLOR Yellow Yellow Color 04/06/2024 3:[address] [facility] CLARITY Turbid(A) Clear Clarity 04/06/2024 3:[address] [facility] SPECIFIC GRAVITY,URINE >=1.030(A) 1.010, 1.015, 1.020, 1.025 04/06/2024 3:[address] [facility] PH,URINE 6.0 6.0, 7.0, 8.0, 5.5, 6.5, 7.5, 8.5 04/06/2024 3:[address] [facility] UROBILINOGEN, QUALITATIVE Normal Normal EU/dl 04/06/2024 3:[address] [facility] PROTEIN, URINE 100(A) Negative mg/dL 04/06/2024 3:[address] [facility] GLUCOSE, URINE Negative Negative mg/dL 04/06/2024 3:[address] [facility] KETONES,URINE Negative Negative mg/dL 04/06/2024 3:[address] [facility] BILIRUBIN,URI NE Negative Negative 04/06/2024 3:[address] [facility] OCCULT BLOOD,URINE Large(A) Negative 04/06/2024 3:[address] [facility] NITRITE Negative Negative 04/06/2024 3:[address] [facility] LEUKOCYTE ESTERASE Moderate(A) Negative 04/06/2024 3:[address] [facility] Urine URINE SPECIMEN / Unknown Non-Blood / Unknown 04/06/2024 2:48 PM MANAGER DIVISION 04/06/2024 2:48 PM MANAGER DIVISION us Marissa Suarez BILINGUAL SALES CONSULTANT URINE Final Result [facility] [address] [place] [address] * SCAN-EYE EXAM (01/26/2024 12:00 AM CDT) Scanner OTHER Final Result * (ABNORMAL) LIPID PANEL W REFLEX MEASURED LDL (11/24/2023 11:08 AM CDT) CHOLESTEROL,TOTAL 142 100 - 199 mg/dL 11/25/2023 6:12 AM CDT [facility] [employer] Comment: Cholesterol, Total Reference Ranges Desirable <200 mg/dL Borderline 200-239 mg/dL High >=240 mg/dL TRIGLYCERIDES 100 <150 mg/dL 11/25/2023 6:12 AM CDT [facility] [employer] [facility] HDL CHOLESTEROL 40(L) >40 mg/dL 6:12 AM CDT [facility] NON-HDL CHOLESTEROL 102 <145 mg/dl 11/25/2023 6:12 AM CDT [facility] CHOL/HDL RATIO 3.55 <4.50 11/25/2023 6:12 AM CDT [facility] LDL CHOLESTEROL 82 <=130 mg/dL 11/25/2023 6:12 AM CDT [facility] VLDL CHOLESTEROL 20 <=30 mg/dL 11/25/2023 6:12 AM CDT [facility] PROVIDER ORDERED STATUS RANDOM 11/25/2023 6:12 AM CDT [facility] Blood BLOOD SPECIMEN / Unknown Venipuncture / Unknown 11/24/2023 11:08 AM CDT 11/24/2023 11:10 AM CDT us Antonette James MD CHEMISTRY Fi nal Result [facility] [address] [place] [address], [place] * XR MAMMO CURT BILAT SCREEN (07/29/2023 11:00 AM CDT) Anatomical Region Laterality Modality BREASTS, Breast Left, Breast Right Bilateral Mammography Impressions 07/29/2023 3:57 PM CDT There is no radiographic evidence for malignancy. Recommend annual mammograms. MAMMOGRAM ASSESSMENT: ACR 1 Negative PATIENTS: You will also receive a letter with your examination results in an easy to read format. If you have questions about your results, please contact your referring provider. Narrative 07/29/2023 3:57 PM CDT For Patients: As a result of the Cures Act, medical imaging exams and procedure reports are released immediately into your electronic medical record. You may view this report before your referring provider. If you have questions, please contact your health care provider. XR MAMMO CURT BILAT SCREEN [[id number]] CLINICAL HISTORY: This is an asymptomatic 63 y.o. patient. INDICATION FOR EXAM: Mammogram Screening. TECHNIQUE: CC & MLO views were obtained. This study was evaluated with the assistance of Computer-Aided Detection. Breast Tomosynthesis was used in interpretation. COMPARISON FILM: Yes 10/25/21 [facility] FINDINGS: The breasts are almost entirely fatty. There are no dominant masses, suspicious micro calcifications or areas of architectural distortion. Antonette James MD MAMMO Fi nal Result * HPV HIGH RISK (10/25/2021 11:20 AM CDT) TYPE 16 Negative Negative 10/29/2021 5:35 PM CDT [facility] TYPE 18 Negative Negative 10/29/2021 5:35 PM CDT [facility] OTHER HIGH RISK TYPES Negative Negative 10/29/2021 5:35 PM CDT [facility] Other (Cervical) Non-Blood / Unknown 10/25/2021 11:20 AM CDT 10/26/2021 2:14 PM CDT Narrative [facility] - 10/29/2021 5:35 PM CDT HPV types 16, 18, 31, 33, 35, 39, 45, 51, 52, 56, 58, 59, 66 and 68 DNA were undetectable or below the pre-set threshold. Methodology: Ana Leydi 4800 HPV Test Antonette James MD MICROBIOLOGY Fi nal Result Performing Organization Address [facility] Co de Phone Number [facility] [address] [place] [address], * COLONOSCOPY SCREENING (01/08/2021 12:00 AM CDT) Antonette James MD GI PROCEDURE ORD F inal Result * ANTI HIV 1/2 (08/18/2017 12:14 PM CDT) HIV-1/HIV-2 ANTIBODY Non-Reacti ve Non-Reacti ve 08/18/2017 5:43 PM CDT [facility] Comment:HIV-1 p24 and HIV-1/ HIV-2 Ab not detected. Blood BLOOD SPECIMEN / Unknown Venipuncture / Unknown 08/18/2017 12:14 PM CDT 08/18/2017 12:14 PM CDT Antonette James MD SEND OUTS Fi nal Result Performing Organization Address [facility] Co de Phone Number [facility] [address] [place] [address], * ANTI HCV [41832.2] (08/22/2016 9:48 AM CDT) HEPATITIS C ANTIBODY Non-Reacti ve Non-Reacti ve 08/22/2016 6:54 PM CDT [facility] Blood BLOOD SPECIMEN / Unknown Venipuncture / Unknown 08/22/2016 9:48 AM CDT 08/22/2016 9:48 AM CDT Narrative [facility] - 08/22/2016 6:54 PM CDT Antibodies to HCV not detected; does not exclude the possibility of exposure to HCV. us Antonette James MD SEND OUTS Fi nal Result [facility] [employer] 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
[2024-04-23] MEDS: HYDROCODONE-ACETAMIN 5-325 MG 1 TAB PO (20:05)
== END 2024-04-23 21:05 | disposition home or self-care (01) ==
PROVIDERS: Emergency Provider Family Medicine; PCP Family Medicine
DX: M25.562 Pain in left knee (principal)
CPT/HCPCS: 73562; 73700; 99283; 99284; A9270

== ENCOUNTER 2024-05-13 14:00 | Outpatient (RCR) | payer BC, SELFPAY | END 2024-09-10 23:59 | disposition home or self-care (01) | PROVIDERS: PCP Family Medicine; Visit Provider Physician Assistant | DX: M79.662 Pain in left lower leg (principal); M54.42 Lumbago with sciatica, left side; Z51.89 Encounter for other specified aftercare | CPT/HCPCS: 97110; 97116; 97140; 97162 ==

== ENCOUNTER 2024-08-14 14:59 | Inpatient (IN) | payer BC, SELFPAY ==
[2024-08-14] VITALS (22 sets, daily range): BP systolic 95–123; BP diastolic 60–91; PULSE 81–95; RESP 0–55; TEMP 36.4–37.1; O2SAT 84–94; BMI 70.9; BMI 72.8
--- NOTE | 2024-08-14 | CRLHL7_ITS ---
For Patients: As a result of the Century Cures Act, medical imaging exams and procedure reports are released immediately into your electronic medical record. You may view this report before your referring provider. If you have questions, please contact your health care provider. INDICATION: Shortness of breath. Chest pain. Abdominal pain. TECHNIQUE: CT pulmonary angiogram followed by a CT scan of the abdomen and pelvis with 95 cc of Isovue-370 given intravenously. COMPARISON: CT scan of the abdomen and pelvis dated 11 March 2019. FINDINGS: Chest: Extensive bilateral lobar and segmental pulmonary emboli. Enlargement of the right side of the heart indicating right heart strain. No mediastinal or hilar adenopathy. No axillary adenopathy. The lungs show a 6 mm pulmonary nodule which appears partially calcified in the left lung apex. No other focal pulmonary opacities. No pneumothorax. Abdomen and pelvis: No focal abnormalities identified in the visualized portions of the liver, spleen, pancreas, adrenal glands, and kidneys. No hydronephrosis. No obstructing uroliths. IUD in the uterus. Colonic diverticulosis. The remainder of the GI tract is incompletely distended but shows no gross abnormalities. No retroperitoneal, pelvic sidewall, or mesenteric adenopathy. Atherosclerotic vascular calcifications. Mesh in the anterior abdominal wall. Degenerative changes of the spine. Impression : 1. Extensive bilateral lobar and segmental pulmonary emboli causing right heart strain. 2. No acute abnormalities of the abdomen or pelvis identified. 3. 6 mm pulmonary nodule in the left lung apex may be partially calcified and represent a granuloma. Recommend follow-up chest CT scan in 1 year to document stability. Note: Findings discussed with and acknowledged by Dr. Palomo on 14 August 2024 at 1740 hours. Dictated by Ovidio Adams MD @ 08/14/2024 5:42:25 PM Please note that all CT scans at this facility use dose modulation, iterative reconstruction, and/or weight-based dosing when appropriate to reduce radiation dose to as low as reasonably achievable. Dictated by: Ovidio Adams MD @ 08/14/2024 17:42:39 (Electronically Signed)
--- OUTSIDE RECORDS SUMMARY | 2024-08-14 15:02 | XMS_ITS | Clinical Summary ---
Author Organization [facility] [facility] Address Formerly [facility] [place] [address] Care Team Providers Care Vineyardist Name Role Phone Antonette James MD Primary Care Prov ider Andrew Bower Unavailable Unavailab Ramirez Garcia PharmD Unavailable [phone] Keyanna Figueroa RN Unavailable Allergies Active Allergy Reactions Criticality Noted Date [...] 180 mg daily 06/05/19 16 Active ONETOUCH [id number] :Diabetes mellitus type 2, uncomplicated (HC) 1 Each 0 06/05/19 16 Active omega-3 fatty acids-vitamin E (FISH OIL) 1,000 mg cap Take 1 capsule by mouth 2 times daily. 0 06/06/19 17 Active qtkjpnpp-cenk-tkj 6-H-kvlr-bosw (OSTEO BI-FLEX TRIPLE STRENGTH) 750 mg-644 mg- [...] spacing deviceIndications :Moderate persistent asthma without complication (HC) For home use. Use with inhalers 1 [...] tabletIndications :Wheezing,Moderat e persistent asthma with exacerbation (HC) Take 6 tablets by mouth once daily for 3 days, then decrease by one tablet every 3 days. 62 Tablet 4 2:52 PM CDT 07/14/19 24 Active NebulizerIndicati ons:Wheezing,Mode rate persistent asthma with exacerbation (HC) Nebulizer, disposable neb kit x 4, reuseable neb kit x 1, mask x 1, filters x 1. Frequency of use: daily; Medication: albuterol Length of need: prn months 1 Each 07/14/19 24 Active predniSONE (DELTASONE) 10 mg tabletIndications :Moderate persistent asthma without complication (HC) 4 tabs for 5 days then decrease by 1 tab every 3 day until 1/2 tab for 4 days then stop. 40 Tablet 4 4:04 PM CDT 07/29/19 24 Active dulaglutide (Trulicity) 3 mg/0.5 mL subcutaneous penIndications:Di abetes mellitus without complication (HC) Inject 3 mg subcutaneous once weekly. mondays 4 mL 6 5 3:41 PM CDT 11/27/19 24 Active EPINEPHrine (EpiPen) 0.3 mg/0.3 mL auto-injectorIndi cations:Allergic reaction, subsequent encounter Inject 0.3 mg intramuscular one time if needed for Allergic Reaction. 2 Each 4 4 3:13 PM CDT 11/27/19 24 Active fluticasone (50 mcg per actuation) nasal solution (FLONASE)Indicati ons:Environmental allergies Inhale 2 Sprays in both nostrils once daily. 48 g 3 5 11:08 AM CDT 11/27/19 24 Active fluticasone propion-salmetero L 115-21 mcg/actuation inhalerIndication s:Asthma, extrinsic, unspecified asthma severity, uncomplicated (HC) Inhale 2 Puffs by mouth two times daily. 36 g 3 5 11:08 AM CDT 11/27/19 24 Active hydroCHLOROthiazi de 25 mg tabletIndications :Hypertension, unspecified type Take 1 Tablet (25 mg) by mouth once daily. 90 Tablet 3 5 11:08 AM CDT 11/27/19 24 Active insulin lispro (HumaLOG U-100 Insulin) 100 unit/mL injectionIndicati ons:Diabetes mellitus without complication (HC) Inject 10-12 units subcutaneous three times daily before meals. 30 mL 3 5 11:08 AM CDT 11/27/19 24 Active levothyroxine 50 mcg tabletIndications :High serum thyroid stimulating hormone (TSH) Take 1 Tablet (50 mcg) by mouth before breakfast. 90 Tablet 5 5 11:02 AM CDT 11/27/19 24 Active metoprolol succinate 50 mg sustained-release tabletIndications :Hypertension, unspecified type Take 1 Tablet (50 mg) by mouth once daily. 90 Tablet 3 5 2:39 PM CDT 11/27/19 24 Active montelukast (Singulair) 10 mg tabletIndications :Hypertension, unspecified type Take 1 Tablet (10 mg) by mouth at bedtime. 90 Tablet 3 5 11:08 AM CDT 11/27/19 24 Active omeprazole 40 mg Delayed-Release capsuleIndication s:Chronic GERD Take 1 capsule (40 mg) by mouth 2 times daily. 180 Capsule 3 5 11:08 AM CDT 11/27/19 24 Active simvastatin 10 mg tabletIndications :Diabetes mellitus without complication (HC) Take 1 Tablet (10 mg) by mouth at bedtime. 90 Tablet 3 5 11:08 AM CDT 11/27/19 24 Active albuterol 0.083% (2.5 mg/3 mL) neb solutionIndicatio ns:Moderate persistent asthma without complication (HC) Inhale 3 mL (2.5 mg) via a nebulizer every 4 hours if needed for Shortness Of Breath, Wheezing or Cough. 540 mL 4 4 3:34 PM CDT 11/27/19 24 Active albuterol-ipratro pium (DUONEB) (2.5-0.5 mg) in 3 mL NEBULIZATION solutionIndicatio ns:Moderate persistent asthma without complication (HC) Inhale 3 mL via a nebulizer 4 times daily if needed for Shortness Of Breath or Wheezing. 540 mL 12 4 3:34 PM CDT 11/27/19 24 Active ammonium lactate 12 % creamIndications: Diabetes mellitus without complication (HC) Apply topically to affected area(s) two times daily. 280 g 11 11/27/19 24 Active blood sugar diagnostic (H[employer]Way Ultra Test) stripIndications: Diabetes mellitus without complication (HC) Use as directed to test blood glucose three times daily. 400 Each 3 5 4:51 PM [employer] 11/27/19 24 Active cyclobenzaprine (FLEXERIL) 10 mg tabletIndications :Muscle pain Take 1 Tablet (10 mg) by mouth 3 times daily if needed for Muscle Spasm. 180 Tablet 3 5 3:41 PM CDT 11/27/19 24 Active insulin syringe-needle u-100 (TRUEplus Insulin) 1 mL 31 gauge x 5/16Indications:D iabetes mellitus without complication (HC) Use with insulin up to 5 times daily. 500 Each 3 5 4:51 PM [employer] 11/27/19 24 Active lancets 33 gauge miscIndications:D iabetes mellitus without complication (HC) Dispense item covered by pt ins. E11.9 NIDDM type II - Test 3 times/day, Reason: High A1C. 400 Each 3 11/27/19 24 Active tiotropium bromide (Spiriva Respimat) 2.5 mcg/actuation mist for inhalationIndicat ions:Moderate persistent asthma without complication (HC) Inhale 2 Puffs by mouth once daily. 4 g 4 5 4:51 PM [employer] 11/27/19 24 Active albuterol HFA (Ventolin HFA) 90 mcg/actuation inhalerIndication s:Moderate persistent asthma without complication (HC) Inhale 2 puffs twice daily and then as needed every 4 hours. Extra inhaler for purse please 25.5 g 11 5 3:41 PM CDT 12/15/19 24 Active nystatin 100,000 unit/gram creamIndications: Skin yeast infection Apply topically to affected area(s) two times daily. 30 g 4 1:03 PM CDT 01/08/20 24 Active FreeStyle Awais 2 SensorIndications :Diabetes mellitus without complication (HC) To be used to read blood sugars per furnace repairer helper's directions. Change each sensor every 14 days 6 Each 12 5 11:08 AM CDT 01/12/20 24 Active COVID-19 antigen test (Flowflex COVID-19 Ag Home Test) kit Use as directed on packaging. 4 Kit 5 4:51 PM [employer] 04/19/20 24 Active budesonide (PULMICORT RESPULES) 0.5 mg/2 mL neb suspensionIndicat ions:Moderate persistent asthma without complication (HC) Inhale 2 mL (0.5 mg) via a nebulizer two times daily. 180 mL 1 04/29/19 25 Active trimethoprim 100 mg tablet Take 1 Tablet (100 mg) by mouth once daily in the evening. 90 Tablet 3 5 3:21 PM [employer] 06/15/19 25 Active sertraline 50 mg tabletIndications :Dysthymia Take 2 Tablets (100 mg) by mouth once daily in the morning. 90 Tablet 1 5 2:39 PM CDT 07/23/19 25 Active insulin degludec (Tresiba U-100 Insulin) 100 unit/mL solutionIndicatio ns:Diabetes mellitus without complication (HC) Inject 68 units subcutaneous at bedtime. 60 mL 2 07/23/19 25 Active ondansetron 4 mg disintegrating tabletIndications :Nausea and vomiting, unspecified vomiting type Place 1 Tablet (4 mg) on the tongue every 8 hours if needed for Nausea/Vomiting. 15 Tablet 5 2:39 PM CDT 08/12/19 25 Active cephalexin 500 mg capsuleIndication s:urinary tract infection Take 1 Capsule (500 mg) by mouth three times daily for 7 days. 21 Capsule 5 2:39 PM CDT 08/12/19 25 025 Active insulin degludec (Tresiba U-100 Insulin) 100 unit/mL solutionIndicatio ns:Diabetes mellitus without complication (HC) Inject 68 units subcutaneous at bedtime. 60 mL 2 5 11:08 AM CDT 11/27/19 24 025 Discontin ued(Reord er (E-cancel not sent)) ondansetron (ZOFRAN ODT) 4 mg disintegrating tabletIndications :Nausea Place 1 Tablet (4 mg) on the tongue every 8 hours if needed for Nausea/Vomiting. 15 Tablet 04/06/20 24 025 Discontin ued(Reord er (E-cancel not sent)) sertraline (ZOLOFT) 50 mg tabletIndications :Dysthymia Take 2 Tablets (100 mg) by mouth once daily in the morning. 90 Tablet 1 5 4:49 PM [employer] 04/29/19 25 025 Discontin ued(Reord er (E-cancel not sent)) Hospital, Clinic, or Other Facility Administered Medication Ordered Dose Route Frequency Start Date End Date Status levonorgestrel (MIRENA) 20 mcg/24 hours (8 yrs) 52 mg intrauterine device (IUD) 1 DeviceIndications:Abnormal uterine bleeding due to endometrial polyp 1 Device IU Q 5 YEARS 08/21/2022 Active ondansetron 4 mg injection (ZOFRAN)Indications:Nausea and vomiting, unspecified vomiting type 4 mg IV ONE TIME 08/11/2024 08/11/2024 Ended Active Problems Problem Noted Date Diagnosed Date Class 3 severe obesity due t o excess calories with serious comorbidity and body mass index (BMI) of 60.0 to 69.9 in adult 04/29/2024 IUD (intrauterine device) in place 09/20/2022 S/P [...] Encounters Date Type Department Care Team Description 08/11/2024 2:40 PM CDT Office Visit [facility] [address] [place] [address] Johanna Harden MD Concerns (9 days ago vomiting and diarrhea started. Lasted for 4 days. /Still having nausea, dizziness, SOB, vomiting ) 08/11/2024 Travel 07/22/2024 12:20 PM CDT Office Visit [facility] [address] [place] [address] Antonette James MD Diabetes 07/22/2024 Travel 05/19/2024 11:10 AM [employer] Office Visit [facility] [address] [facility] [place] [address] Antonette James MD Hospital F/U 05/19/2024 Travel from Last 3 Months Immunizations Immunization Administration Dates Next Due COVID-19 vaccine ([employer]ech 30mcg/0.3mL) PF, MDV 05/30/2020,05/08/2020 INFLUENZA, IIV3 PF (AGE >= 6 MO) 02/23/2024 Influenza Virus, Unspecified 02/22/2015,02/14/20 14 Influenza, IIV3 (Age 6-35 mos) 01/29/2013 Influenza, IIV3 (Age >=3 years) 01/31/2009 Influenza, IIV4 03/06/2023, 2,03/20/2021,2019,02/25/2019,03/17/2018,03/03/2017,1 05/05/2015 MMR 05/17/1991 Pneumococcal Poly,23-Valent (Pneumovax) 02/19/2006 [...] = 0.6 oz pur e alcohol) rare PHQ-2 Answer Date Recorded PHQ-2 TOTAL SCORE 6 04/29/2024 Social Connections Answer Date Recorded Do you often feel lonely or isolated from those around you? 0 05/19/2024 Financial Resource Strain Answer Date R ecorded Difficulty of Paying Living Expenses 3 05/19/2024 Difficulty of Paying Living Expenses Not on file 05/19/2024 Food Insecurity Answer Date Recorded Do you worry your food will run out before you are able to buy more? 1 05/19/2024 Transportation Needs Answer Date Record ed Does lack of transportation keep you from medica l appointments? 1 05/19/2024 Does lack of transportation keep you from work, meetings or getting things that you need? 1 05/19/2024 Housing Stability Answer Date Recorded What is your housing situation today? 1 05/19/2024 Interpersonal Safety Answer Date Record ed Are you being hit, kicked, p ushed or yelled at (see row info)? No 05/09/2024 Interpersonal Safety Abuse 12 - 18 Not on file 05/09/2024 Interpersonal Safety Ambulatory Vulnerability No t on file 05/09/2024 Utilities Answer Date Recorded Do you have trouble paying f or utilities (for example, heat, electricity, water, phone)? 1 05/19/2024 Comments No Sex and Gender Information Value Date Recorded Sex Assigned at Not on file Legal Sex Female 6:05 AM [employer] SERVICE [employer] Gender Identity Not on file Sexual Orientation Not on file Occupation Industry Job Start Date Job End Date [employer] Not on file Not on file Not [...] Sign Reading Time Taken Comments Blood Pressure 138/84 08/11/2024 2:51 PM CDT Pulse 94 08/11/2024 2:51 PM CDT Temperature 37.2 C (98.9 F) 05/09/2024 6:21 PM [employer] Respiratory Rate 22 05/09/2024 8:15 PM [employer] SERV[employer] Oxygen Saturation 97% 08/11/2024 2:51 PM CDT Inhaled Oxygen Concentration - - Weight 187.3 kg (413 lb) 08/11/2024 2:51 PM CDT Height 162.6 cm (5' 4) 05/09/2024 6:21 PM [employer] Body Mass Index 70.89 05/09/2024 6:21 PM [employer] Plan of Treatment Health Maintenance Due Date Last Done Comments Pneumococcal series for age 50+ (2 of 2 - PCV) 02/19/2007 02/19/2006 Zoster (shingles) series for age 50+ (1 of 2) 2011 RSV vaccine for adults or (1 - Risk 60-74 years 1-dose series) 2021 COVID-19 vaccine series ( season) 2023 05/30/2020, 05/08/2020 Mammogram for age 45-75 07/28/2024 07/29/19 24, 10/25/2021, 09/12/2020, Additional history exists BMI (ht and wt on same day) for age 18+ 11/26/2024 11/27/2023, 12/11/2022, 07/24/2022, Additional history exists Depression screening for age 12+ 04/29/2025 04/29/2024, 04/16/2024, 06/10/2023, Additional history exists Colonoscopy through age 75 01/08/202601/08, 01/08/2021, 07/24/2015, Additional history exists Pap test for age 21-65 10/25/2026 , 10/25/2021, 07/13/2018, Additional history exists Lipids for age 45-75 11/23/2028 11/24/2023, 12/11/2022, 01/24/2022, Additional history exists Tetanus booster 12/11/2032 12/11/2022, 03/21, 11/19/2005 Tdap Completed 04/07/2012 Hepatitis C screening for ag e 18-79 Completed 08/22/2016 HIV for age 15-65 Completed 08/18/2017 Influenza Vaccine Completed 02/23/2024, , 03/01/2022, Additional history exists Procedures Procedure Name Priority Date/Time Associated Diagnosis Comments URINALYSIS MACROSCOPIC - [facility] ONLY POC DIP ([facility]) Routine 08/11/2024 4:47 PM CDT Nausea and vomiting, unspecified vomiting type URINALYSIS MICROSCOPIC Routine 08/11/2024 4:45 PM CDT Nausea and vomiting, unspecified vomiting type URINE CULTURE Routine 08/11/2024 4:45 PM CDT Nausea and vomiting, unspecified vomiting type BASIC METABOLIC PANEL Routine 08/11/2024 3:36 PM CDT Nausea and vomiting, unspecified vomiting type CBC WITH AUTO DIFFERENTIAL Routine 08/11/2024 3:36 PM CDT Nausea and vomiting, unspecified vomiting type HEMOGLOBIN A1C MONITORING (POCT) Routine 07/22/2024 12:25 PM CDT Diabetes mellitus without complication (HC) URINALYSIS MICROSCOPIC Routine 05/19/2024 12:40 PM [employer] Recurrent UTI URINE CULTURE Routine 05/19/2024 12:40 PM [employer] Recurrent UTI LIPID PANEL W REFLEX MEASURED LDL Routine [...] Recently Relevant to Health Maintenance Results * (ABNORMAL) POCT Urinalysis Dipstick Only [[id number]] (08/11/2024 4:47 PM CDT) PH 6.0 5.0 - 8.0 [facility] SPECIFIC GRAVITY 1.020 1.001 - 1.035 [facility] GLUCOSE NEGATIVE NEGATIVE [facility] BILIRUBIN NEGATIVE NEGATIVE [facility] KETONES NEGATIVE NEGATIVE [facility] OCCULT BLOOD TRACE(A) NEGATIVE [facility] PROTEIN 1+(A) NEGATIVE [facility] NITRITE POSITIVE(A) NEGATIVE [facility] LEUKOCYTE ESTERASE 1+(A) NEGATIVE [facility] Urine URINE SPECIMEN / Unknown 08/11/2024 4:47 PM CDT 08/11/2024 4:47 PM CDT Johanna Harden MD URINE Fi nal Result [facility] [address] [place] [address], [facility] [address] [place] [address] * (ABNORMAL) URINALYSIS MICROSCOPIC [09428.1] - routine (08/11/2024 4:45 PM CDT) Only the most recent of2 resultswithin the time period is included. RBC 0-2 0-2, None Seen /HPF 08/11/2024 10:50 PM CDT [facility] WBC 51-100(A) 0-2, 3-5, None Seen /HPF 08/11/2024 10:50 PM CDT [facility] BACTERIA Many(A) None Seen, Rare, Few Bacteria/ HPF 08/11/2024 10:50 PM CDT [facility] EPITHELIAL CELLS Few None Seen, Few Epi/HPF 08/11/2024 10:50 PM CDT [facility] HYALINE CASTS 3-5 0-2, 3-5 /LPF 08/11/2024 10:50 PM CDT [facility] Urine URINE SPECIMEN / Unknown Non-Blood / Unknown 08/11/2024 4:45 PM CDT 08/11/2024 4:45 PM CDT us Johanna Harden MD URINE Fi nal Result [facility] [address] [place] [address], * (ABNORMAL) URINE CULTURE [01057.2] (08/11/2024 4:45 PM CDT) Only the most recent of2 resultswithin the time period is included. CULTURE RESULT(A) 08/14/2024 7:15 AM CDT [facility] CULTURE >100,000 CFU/mL Escherichia coli 08/14/2024 7:15 AM CDT [facility] Urine URINE SPECIMEN / Unknown Non-Blood / Unknown 08/11/2024 4:45 PM CDT 08/11/2024 4:45 PM CDT Narrative Organism Antibiotic Method Susceptibility Escherichia coli TRIMETHOPRIM/SULF >=16/304: R Escherichia coli AMPICILLIN >=32: R Escherichia coli CEFAZOLIN 2: S Escherichia coli CEFAZOLIN-UC 2: S Comment:Cefazolin-UC interpretations are for therapy of uncomplicated UTIs due to E.coli, K.pneumoniae, or P.mirablis. Cefazolin breakpoint is used as a surrogate to predict results for the oral agents - cefdinir, cefuroxime, and cephalexin, when used for therapy of uncomplicated UTIs due to E coli, K, pneumoniae, and P. mirabilis. The FDA recommends cefadroxil susceptibility can be deduced from cefazolin. Escherichia coli GENTAMICIN <=1: S Escherichia coli CEFTRIAXONE <=0.25: S Escherichia coli CEFTAZIDIME <=0.5: S Escherichia coli LEVOFLOXACIN >=8: R Escherichia coli CIPROFLOXACIN >=4: R Escherichia coli PIPERACILLIN/TAZO <=4: S Escherichia coli AMPICILLIN/SULBACTAM 16: I Escherichia coli CEFEPIME <=0.12: S Escherichia coli MEROPENEM <=0.25: S Escherichia coli NITROFURANTOIN <=16: S us Johanna Harden MD MICROBIOLOGY [facility] Result [facility] [address] [place] [address], * CBC AND DIFFERENTIAL (08/11/2024 3:36 PM CDT) WHITE BLOOD CELL COUNT 9.8 3.8 - 10.8 Thousand/u L [facility] [employer] RED BLOOD CELL COUNT 4.93 3.80 - 5.10 Million/uL [facility] [employer] HEMOGLOBIN 14.1 11.7 - 15.5 g/dL [facility] HEMATOCRIT 43.5 35.0 - 45.0 % [facility] MCV 88.2 80.0 - 100.0 fL [facility] MCH 28.6 27.0 - 33.0 pg [facility] MCHC 32.4 32.0 - 36.0 g/dL [facility] Comment: For adults, a slight decrease in the calculated MCHC value (in the range of 30 to 32 g/dL) is most likely not clinically significant; however, it should be interpreted with caution in correlation with other red cell parameters and the patient's clinical condition. RDW 13.4 11.0 - 15.0 % [facility] PLATELET COUNT 229 140 - 400 Thousand/u L [facility] MPV 11.6 7.5 - 12.5 fL [facility] ABSOLUTE NEUTROPHILS 7,085 1,500 - 7,800 cells/uL [facility] ABSOLUTE LYMPHOCYTES 1,911 850 - 3,900 cells/uL [facility] ABSOLUTE MONOCYTES 568 200 - 950 cells/uL [facility] ABSOLUTE EOSINOPHILS 186 15 - 500 cells/uL [facility] ABSOLUTE BASOPHILS 49 0 - 200 cells/uL [facility] NEUTROPHILS 72.3 % [facility] LYMPHOCYTES 19.5 % [facility] MONOCYTES 5.8 % [facility] [employer] EOSINOPHILS 1.9 % [facility] [employer] [facility] BASOPHILS 0.5 % [facility] Blood BLOOD SPECIMEN / Unknown 08/11/2024 3:36 PM CDT 08/11/2024 3:37 PM CDT Johanna Harden MD HEMATOLOGY Fi nal Result [facility] [address] [place] [address], [facility] [address] [place] [address] * (ABNORMAL) BASIC METABOLIC PANEL (08/11/2024 3:36 PM CDT) GLUCOSE 159(H) 65 - 99 mg/dL [facility] Comment: Fasting reference interval For someone without known diabetes, a glucose value >125 mg/dL indicates that they may have diabetes and this should be confirmed with a follow-up test. UREA NITROGEN (BUN) 15 7 - 25 mg/dL [facility] CREATININE 1.06(H) 0.50 - 1.05 mg/dL [facility] EGFR 59(L) > OR = 60 mL/min/1.7 3m2 [facility] BUN/CREATININE RATIO 14 6 - 22 (calc) [facility] SODIUM 143 135 - 146 mmol/L [facility] POTASSIUM 4.1 3.5 - 5.3 mmol/L [facility] CHLORIDE 103 98 - 110 mmol/L [facility] CARBON DIOXIDE 30 20 - 32 mmol/L [facility] ELECTROLYTE BALANCE 10 7 - 17 mmol/L (calc) [facility] CALCIUM 8.9 8.6 - 10.4 mg/dL [facility] Blood BLOOD SPECIMEN / Unknown 08/11/2024 3:36 PM CDT 08/11/2024 3:37 PM CDT Johanna Harden MD CHEMISTRY Fi nal Result [facility] [place] [id number] [place] [address], [facility] [address] * (ABNORMAL) HEMOGLOBIN A1C MONITORING (POCT) (07/22/2024 12:25 PM CDT) POC HEMOGLOBIN A1C 7.0(H) <6.0 % OF TOTAL HGB [facility] Comment: Any point of care results exhibiting inconsistency with the patient's clinical status should be repeated using a different testing method. Blood BLOOD SPECIMEN / Unknown 07/22/2024 12:25 PM CDT 07/22/2024 12:25 PM CDT Antonette James MD CHEMISTRY Fi nal Result [facility] [address] [place] [address], [facility] [address] [place] [address] * (ABNORMAL) LIPID PANEL W REFLEX MEASURED LDL (11/24/2023 11:08 AM CDT) CHOLESTEROL,TOTAL 142 100 - 199 mg/dL 11/25/2023 6:12 AM CDT [facility] Comment: Cholesterol, Total Reference Ranges Desirable <200 mg/dL Borderline 200-239 mg/dL High >=240 mg/dL TRIGLYCERIDES 100 <150 mg/dL 11/25/2023 6:12 AM CDT [facility] HDL CHOLESTEROL 40(L) >40 mg/dL 6:12 AM CDT [facility] NON-HDL CHOLESTEROL 102 <145 mg/dl 11/25/2023 6:12 AM CDT [facility] CHOL/HDL RATIO 3.55 <4.50 11/25/2023 6:12 AM CDT [facility] LDL CHOLESTEROL 82 <=130 mg/dL 11/25/2023 6:12 AM CDT [facility] VLDL CHOLESTEROL 20 <=30 mg/dL 11/25/2023 6:12 AM CDT [facility] PROVIDER ORDERED STATUS RANDOM 11/25/2023 6:12 AM T [facility] Blood BLOOD SPECIMEN / Unknown Venipuncture / Unknown 11/24/2023 11:08 AM CDT 11/24/2023 11:10 AM CDT us Antonette James MD CHEMISTRY Fi nal Result [facility] [address] [place] [address], * XR MAMMO CURT BILAT SCREEN (07/29/2023 [...] For Patients: As a result of the Century Cures Act, medical imaging exams and procedure reports are released immediately into your electronic medical record. You may view this report before your referring provider. If you have questions, please contact your health care provider. XR MAMMO CURT BILAT SCREEN [[id number]] CLINICAL HISTORY: This is an asymptomatic 63 y.o. patient. INDICATION FOR EXAM: Mammogram Screening. TECHNIQUE: CC & MLO views were obtained. This study was evaluated with the assistance of Computer-Aided Detection. Breast Tomosynthesis was used in interpretation. COMPARISON FILM: Yes 10/25/21 [facility] [employer] 09/12/20 [facility] FINDINGS: The breasts are almost entirely fatty. There are no dominant masses, suspicious micro calcifications or areas of architectural distortion. Antonette James MD MAMMO Fi nal Result * HPV HIGH RISK (10/25/2021 11:20 AM CDT) TYPE 16 Negative Negative 10/29/2021 5:35 PM CDT [facility] TYPE 18 Negative Negative 10/29/2021 5:35 PM CDT [facility] OTHER HIGH RISK TYPES Negative Negative 10/29/2021 5:35 PM CDT [facility] Other (Cervical) Non-Blood / Unknown 10/25/2021 11:20 AM CDT 10/26/2021 2:14 PM CDT Narrative [facility] - 10/29/2021 5:35 PM CDT HPV types 16, 18, 31, 33, 35, 39, 45, 51, 52, 56, 58, 59, 66 and 68 DNA were undetectable or below the pre-set threshold. Methodology: The [employer] 4800 HPV Test Antonette James MD MICROBIOLOGY Fi nal Result [facility] [address] [place], [place] [id number], * COLONOSCOPY SCREENING (01/08/2021 12:00 AM CDT) Antonette James MD GI PROCEDURE ORD F inal Result * ANTI HIV 1/2 (08/18/2017 12:14 PM CDT) HIV-1/HIV-2 ANTIBODY Non-Reacti ve Non-Reacti ve 08/18/2017 5:43 PM CDT [facility] Comment:HIV-1 p24 and HIV-1/ HIV-2 Ab not detected. Blood BLOOD SPECIMEN / Unknown Venipuncture / Unknown 08/18/2017 12:14 PM CDT 08/18/2017 12:14 PM CDT Antonette James MD SEND OUTS Fi nal Result Performing Organization Address City/[facility]/ZIP Co de Phone Number [facility] Direct V[facility] [address] [place] [address], * ANTI HCV [20073.2] (08/22/2016 9:48 AM CDT) HEPATITIS C ANTIBODY Non-Reacti ve Non-Reacti ve 08/22/2016 6:54 PM CDT [facility] Blood BLOOD SPECIMEN / Unknown Venipuncture / Unknown 08/22/2016 9:48 AM CDT 08/22/2016 9:48 AM CDT Narrative [facility] - 08/22/2016 6:54 PM CDT Antibodies to HCV not detected; does not exclude the possibility of exposure to HCV. Antonette James MD SEND OUTS Fi nal Result [facility] [address] [place] [address], from Last 3 Months or Most Recently Relevant to Health Maintenance Additional Health Concerns Infection Onset Date Last Indicated MRSA 08/11/2018 01/08/2024 Insurance [employer] [place] [address] Advance Directives * Full Code (Latest Code Status on File) Date Activated Date Inactivated Comments 08/16/2022 11:09 AM 08/16/2022 5:16 PM Question Answer Comments Code Status Discussion: Reviewed Preferences Care Teams Vineyardist Relationship Specialty Start Date End Date Antonette James MD PCP - General 12/21/09 Andrew Bower General Surgery Surgery - General 08/15/11 Ramirez Tello, PharmD Pharmacist Medication Management Pharmacology 10/28/18 Keyanna Figueroa, RN [address] [place] [address] 11/07/21
--- OUTSIDE RECORDS SUMMARY | 2024-08-14 15:02 | XMS_ITS | Data Portability ---
Author Organization [place] [facility] Address [address] [place] [address] Assessment No assessment recorded. Plan of Treatment Reminders Order Date Submit Date Provider Last Modified By Organization Details Last Modified Time Details Appointments ESTABLISH ED 10 2024 01:40P Alan Lezama MD Not available Not available Not available Lab urinalysi s, dipstick 2024 025 [email or web address] [facility], [facility], [address], [place], [address], 06/15/2024 14:34:53 Referral None recorded. Procedures bladder scan (PROC) 2024 025 [email or web address] [facility], [facility], [address], [place], [address], 06/15/2024 14:34:53 Surgeries None recorded. Imaging None recorded. Medication Orders trimethop rim 100 mg tablet 2024 025 [facility], [address] [place] [address], [place], [address], 06/15/2024 14:34:59 Patient TargetsNo targets recorded. Patient Instructions Encounter Date Encounter Id Patient Instructions Last Modified By Organization Details Last Modified Time 06/15/2024 [id number] will start on trimpex and plan rtc 3 month for UA and PVR. [email or web address] Not available 06/15/2024 14:34:51 Reason for Referral None Reported. Results Created Date Observation Date Name Description Value Unit Range Abnormal Flag Note LastModifiedBy Organization Detail LastModifiedTime 06/15/1906/15/2024 bladd er scan (PROC ) Volume (in mL) 138 Not Available [address], [place], [address], 05/31/2024 14:36:37 06/15/1906/15/2024 urina lysis , dipst ick Color-Status Yellow Not Available [address], [place], [address], 05/31/2024 14:36:33 06/15/1906/15/2024 urina lysis , dipst ick Clarity-Stat us Clear Not Available [address], [place], [address], 05/31/2024 14:36:33 06/15/1906/15/2024 urina lysis , dipst ick Sp [place]-Stat us 1.025 Not Available [address], [place], [address], 05/31/2024 14:36:33 06/15/1906/15/2024 urina lysis , dipst ick pH-Status 5.5 Not Available [address], [place], [address], 05/31/2024 14:36:33 06/15/19 25 06/15/2024 urina lysis , dipst ick Nitrates-Sta tus negati ve Not Available [address], [place], [address], 05/31/2024 14:36:33 06/15/19 25 06/15/2024 urina lysis , dipst ick Blood-Status Negati ve Not Available [address], [place], [address], 05/31/2024 14:36:33 06/15/19 25 06/15/2024 urina lysis , dipst ick Leuko-Status Modera te Not Available [address], [place], [address], 05/31/2024 14:36:33 06/15/1906/15/2024 urina lysis , dipst ick Specimen Type Voided Not Available [address], [place], [address], 05/31/2024 14:36:33 06/10/1904/06/2024 CT, abdom en + pelvi s, w/o contr ast No observ ation record ed. [email or web address] Not Available 12:40:25 Result Notes None recorded. Problems Name Problem SNOMED Code Status Onset Date Resolution Date Notes Provider Name and Address Organization Details Recorded Time Recurrent urinary tract infection 092404571 Active 025 Sudheer Lezama MD [address] [place] [address],[facility] [address] [place] [address], [phone], [facility] 14:32:44 Problem Notes None recorded. Procedures Surgical History Date Name Laterality Status Provider Name and Address Organization Details Recorded Time 5 Bladder Scan active Benita Craig [facility] 08/12/2024 10:52:04 Bladder Scan completed Benita Craig [facility] 06/15/2024 14:11:08 lumpectomy of breast completed Sudheer Lezama MD [address] [place] [address],[facility] [address], [address], [facility] 06/15/2024 14:12:34 hernia repair completed Sudheer Lezama MD [address], [place], [address], [facility] 06/15/2024 14:12:48 Imaging Results Imaging Date Name Status LastModified by Organiz ation Details LastModified Time 04/06/2024 CT, abdomen + pelvis, w/o contrast completed [email or web address] Information not available 06/10/2024 12:40:25 Procedure Notes None recorded. Medical Equipment None Reported. Allergies Allergen ID Allergen Name Allergen Category Reaction Reaction Severity Criticality Documentation Date Start Date Code Code System Note Provider Name and Address Organization Details Recorded Time 240032 azithromy judd medicatio n Not available Not available Not available 06/15/20242007 98327 RxNorm unrec ogniz ed react ion (text : Tyree lancaster , code: 04850 [id number]) (from exter nal sourc e) Not Available Not Available Not Available 478330 lisinopri l medicatio n cough Not available Not available 06/15/20242016 33252 RxNorm Was clear she doesn 't want to try anyth ing with remot e chanc e of breat fei diffi culti es Also class ifies this as an intol eranc e, not a true aller gy Not Available Not Available Not Available 341973 losartan medicatio n cough Not available Not available 06/15/20242016 74457 RxNorm Not Available Not Available Not Available 832282 metformin medicatio n Not available Not available Not available 06/15/20242007 6809 RxNorm unrec ogniz ed react ion (text : GI Upset , code: 35042 5008) (from exter nal sourc e) Not Available Not Available Not Available Medications Name Sig Start Date Stop Date Status Note LastModified by Organization Details LastModified Time trimethoprim 100 mg tablet Take 1 tablet every day by oral route in the evening for 90 days. 2024 active Not Available Not Available Not Avai lable Vitals Date Recorded Body height Body mass index (BMI) Body weight Provider Name and Address Organization Details Last Updated DateTime 06/15/2024 162.56 cm 72.1 kg/m2 091559.8 g Sudheer Lezama MD [address] [facility], [place], [address] 06/15/2024 14:09:28 Social History Question Answer Notes LastModified by Organizat ion Details LastModified Time Tobacco Smoking Status Never Smoker Sudheer Lezama MD [address],[facility] [address], [address], [facility] 06/15/2024 14:12:17 What Is Your Level Of Alcohol Consumption? Occasional [email or web address] Information not available 06/15/2024 What Is Your Level Of Caffeine Consumption? None [email or web address] Information not available 06/15/2024 What Was The Date Of Your Most Recent Tobacco Screening? 06/15/2024 [email or web address] Information not available 06/15/2024 Have You Ever Been Counseled For Unhealthy Alcohol Use? No [email or web address] Information not available 06/15/2024 Do You Use Any Illicit Or Recreational Drugs? No [email or web address] Information not available 06/15/2024 Sex: Female Functional Status None recorded. Mental Status None recorded. Family History Relationship Description Onset Age of this Age Resolved Age Notes LastModified by Organization Details LastModified Time Father No current problems or disability [email or web address] Not available 05/23 14:11:43 Mother No current problems or disability [email or web address] Not available 05/23 14:11:43 Medical History Condition Response Diabetes Y Sexually Transmitted Infection N Bleeding Disorder N Other N High Blood Pressure Y Kidney Stones Y Cancer N Lung Disease Y Depression Y High Cholesterol Y GERD/Acid Reflux Y Heart Disease N Gynecological HistoryNo gynecological history recorded. Obstetrics History GPAL:G 0 P 0 0 0 0 Past Encounters Encounter ID Performer Location Encounter Start Date Encounter Closed Date Diagnosis/Indication Diagnosis SNOMED-CT Code Diagnosis ICD10 Code Diagnosis Note [id number] Sudheer Lezama MD [facility] [address] [address] 06/15/2024 13:56:43 06/17/2024 12:37:29 Recurrent urinary tract infection 619693994 N39.0 Health Concerns Section Related Observation LastModified by Organization Detai ls LastModified Time None Recorded Concern Status LastModified by Organization Details LastModified Time None Recorded Advance Directives Directive None Recorded Payers Encounter Date Sequence Insurance Name Policy Number Policy Santacruz Covered Member ID Santacruz Member ID Guarantor Name 06/15/2024 1 [facility] [facility] [place] ([place] [id number] Tarah Velez Melissa [id number] Tarah A Melissa Notes Date Note Type Note Provider Name and Address Organization Details Recorded Time 06/15/2024 text/html seeing for Hodan. started having a year ago, had 3-4 episodes over the last year, had an episode of pyelo in March. UA bland and PVR 138ml today. sx's with UTI nausea, also some chronic frequency. had CT in March no stone or obstruction. Sudheer Lezama MD [address] [facility] [address], [place], [address], [facility] 06/15/2024 14:35:07 OBGyn Episode No OBEpisode recorded.
--- NOTE | 2024-08-14 15:26 | ED_ITS ---
HPI - General Adult General Date Seen: 08/14/24 Chief complaint: Shortness of Breath/Dyspnea Stated complaint: trouble breathing Time Seen by Provider: 08/14/24 15:26 History of Present Illness HPI narrative: 64-year-old female with a history of arthritis, elevated BMI/obesity, type 2 diabetes, GERD, sleep apnea, asthma. She presents to the ER today with several concerns including chest pain and shortness of breath, dyspnea on exertion, generalized burning abdominal pain, and recent UTI. History from patient is that she got sick about 2 weeks ago with a several day illness of vomiting and diarrhea. She had picked up some sort of stomach bug from her daughter. Her is also sick with similar symptoms. She was never tested but she presumes she probably had norovirus. It sounds like the symptoms lasted for 5 or 6 days and then got better to the point where she was able to go back to work for 1 day and then recurred again with a few more days of vomiting. She was not able to take all of her oral meds while she was sick including not able to take her Prilosec (she is normally on Prilosec 40 mg b.i.d.). The vomiting and diarrhea have been gone now for the past several days. However she has developed a more generalized diffuse abdominal burning pain. Perhaps more upper than lower.. She went to her primary clinic the other day. Labs were reassuring save for signs of UTI so she was started on antibiotics for that. Her doctor called her today and told her that based on the urine culture her antibiotic should be appropriate for treating her bladder infection. Her doctors 3 about the burning pain was that she probably had developed some irritation or gastritis after having had been off her Prilosec for several days. She says that her abdominal pain has not gotten better despite taking the prescribed antibiotics for her urine. She is not having any fever. No vomiting. Bowel movements normal. Nothing black or bloody. Beginning 2 days ago on she has also developed generalized weakness, dyspnea on exertion, shortness of breath at rest, and is diffuse centralized chest discomfort. Her chest has been hurting continuously for the past couple of days. She says she cannot catch her breath. However, she says that her chest tightness does not feel like her previous asthma attacks. She has a chronic cough but is not changed from baseline. No new production of sputum. No new fever or chills. Given ongoing chest pain and shortness of breath she came to the ER today. She was noted to be hypoxic when she presented to the ER (85% on room air at triage) but has never been the source of hypoxic before and is not on any home oxygen. Per medical record it looks like her primary care is through [facility]. According the [facility] record med list currently includes albuterol nebulizer and inhaler, budesonide nebulizer, fluticasone nasal spray. It looks like she has been on several rounds of steroids over the past few years, presumably for lung problems. She is on insulin, Trulicity, for diabetes. Most recent visit the [facility] clinic was 08/11/2024. According to that note she had had nausea, vomiting diarrhea that had begun about 2 weeks ago so she is unable to take her meds and had lost 12 lb. She was in the clinic complaining of burning abdominal pain. She had labs: 08/11/2024-sodium 143, potassium 4.1, chloride 103, bicarb 30, glucose 159, BUN 15, creatinine 1.06, calcium 8.9. WBC 9.8, hemoglobin 14.1, platelet count 229. Urinalysis with 50-100 WBC/HPF. Positive nitrite. Urine culture growing E coli resistant to Bactrim, Levaquin, Cipro, ampicillin. Sensitive to cephalosporins, nitrofurantoin, Zosyn. Related Data Home Medications ?Medication ?Instructions ?Recorded ?Confirmed albuterol sulfate 2.5 mg/3 mL mg 04/23/24 05/18/24 (0.083 %) solution for nebulization albuterol sulfate 90 mcg/actuation inhalation 04/23/24 05/18/24 aerosol inhaler budesonide 0.5 mg/2 mL suspension mg 04/23/24 05/18/24 for nebulization cyclobenzaprine 10 mg tablet 10 mg PO 3XD 04/23/24 05/18/24 dulaglutide 3 mg/0.5 mL mg subcut 04/23/24 05/18/24 subcutaneous pen injector (Trulicity) epinephrine 0.3 mg/0.3 mL 1 mg IM DAILY 04/23/24 05/18/24 injection, auto-injector escitalopram oxalate 20 mg tablet 20 mg PO DAILY 04/23/24 05/18/24 fluconazole 150 mg tablet PO 04/23/24 05/18/24 fluticasone propionate 115 2 puff inhalation BID 04/23/24 05/18/24 mcg-salmeterol 21 mcg/actuation HFA inhaler (Advair HFA) hydrochlorothiazide 25 mg tablet 25 mg PO DAILY 04/23/24 05/18/24 insulin degludec 100 unit/mL 70 unit subcut HS 04/23/24 05/18/24 subcutaneous solution (Tresiba U-100 Insulin) insulin lispro 100 unit/mL subcut 04/23/24 05/18/24 subcutaneous solution (Humalog U-100 Insulin) levothyroxine 50 mcg tablet 50 mcg PO DAILY 04/23/24 05/18/24 methylprednisolone 4 mg tablets in mg PO DIRECTED 04/23/24 05/18/24 a dose pack metoprolol succinate 50 mg 50 mg PO DAILY 04/23/24 05/18/24 tablet,extended release 24 hr nystatin 100,000 unit/gram topical 1 applic topical BID 04/23/24 05/18/24 cream omeprazole 40 mg capsule,delayed 40 mg PO BID 04/23/24 05/18/24 release ondansetron 4 mg disintegrating 4 mg PO Q8H PRN nausea/vomiting 04/23/24 05/18/24 tablet sertraline 50 mg tablet 50 mg PO DAILY 04/23/24 05/18/24 simvastatin 10 mg tablet 10 mg PO QPM 04/23/24 05/18/24 tiotropium bromide 2.5 2 puff inhalation DAILY 04/23/24 05/18/24 mcg/actuation mist for inhalation (Spiriva Respimat) Allergies Allergy/AdvReac Type Severity Reaction Status Date / Time lisinopril Allergy Mild cough Verified 08/14/24 16:46 metformin (From Glucophage) Allergy Mild vomiting Verified 08/14/24 16:46 azithromycin (From Zithromax) Allergy chest pain Verified 08/14/24 16:46 and difficulty breathing beetles Allergy swelling Uncoded 08/14/24 16:46 robertson garrick and ragweed Allergy wheezing Uncoded 08/14/24 16:46 [facility] Medical History (Updated 08/14/24 @ 18:51 by Stefan Downs MD) Recurrent UTI ?N39.0 - Urinary tract infection, site not specified (ICD-10) Nausea ?R11.0 - Nausea (ICD-10) Foreign body in foot ?S90.859A - Superficial foreign body, unspecified foot, initial encounter (ICD-10) Ventral hernia, recurrent ?K43.2 - Incisional hernia without obstruction or gangrene (ICD-10) TO (obstructive sleep apnea) ?G47.33 - Obstructive sleep apnea (adult) (pediatric) (ICD-10) Unspecified asthma ?J45.909 - Unspecified asthma, uncomplicated (ICD-10) Lumbar disc herniation with radiculopathy ?M51.16 - Intervertebral disc disorders with radiculopathy, lumbar region (ICD-10) Personal history of colonic polyps ?Z86.0100 - Personal history of colon polyps, unspecified (ICD-10) Esophageal reflux ?K21.9 - Gastro-esophageal reflux disease without esophagitis (ICD-10) Vitamin D deficiency ?E55.9 - Vitamin D deficiency, unspecified (ICD-10) Morbid obesity ?E66.01 - Morbid (severe) obesity due to excess calories (ICD-10) Other and unspecified hyperlipidemia ?E78.5 - Hyperlipidemia, unspecified (ICD-10) Type 2 diabetes mellitus ?E11.9 - Type 2 diabetes mellitus without complications (ICD-10) Unspecified essential hypertension ?I10 - Essential (primary) hypertension (ICD-10) Surgical History (Updated 04/27/24 @ 07:59 by Maria Teresa Hayes ~ EQUIPMENT DETAILER, EQUIPMENT DETAILER) History of hysteroscopy ?Z98.890 - Other specified postprocedural states (ICD-10) H/O wisdom tooth extraction ?K08.409 - Partial loss of teeth, unspecified cause, unspecified class (ICD- 10) H/O hernia repair ?Z98.890 - Other specified postprocedural states (ICD-10) ?Z87.19 - Personal history of other diseases of the digestive system (ICD-10) H/O esophagogastroduodenoscopy ?Z98.890 - Other specified postprocedural states (ICD-10) H/O bilateral cataract extraction ?Z98.41 - Cataract extraction status, right eye (ICD-10) ?Z98.42 - Cataract extraction status, left eye (ICD-10) S/P breast lumpectomy ?Z98.890 - Other specified postprocedural states (ICD-10) S/P D&C (status post dilation and curettage) ?Z98.890 - Other specified postprocedural states (ICD-10) Family History (Updated 08/14/24 @ 18:52 by Stefan Downs MD) Father High blood pressure Heart disease Mother Breast cancer Social History Narrative: She lives with her , Ilan. She does not need eights him as healthcare power of estate attorney. Code status is DNR. She has never smoked. She rarely drinks alcohol. 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 Elevated BMI. Alert. Conversant and able to speak full sentences.. Non toxic. She actually is worried him it comes tearful when discussing all of her symptoms. At this point sats are in the mid to low 90s on nasal cannula. No respiratory distress to suggest she needs positive-pressure ventilation or intubation during my initial evaluation. HENT: Head: Atraumatic. Nose: Nose normal. Mouth/Throat: Oral mucosa is clear and moist. no trismus. Pharynx normal. Tonsils symmetric. No tonsillar enlargement, erythema, or exudate. Eyes: Conjunctivae normal. EOM normal. Pupils equal, round, and reactive to light. No scleral icterus. Neck: Normal range of motion. Neck supple. No tracheal deviation present. Cardiovascular: Normal rate, regular rhythm. No gallop. No friction rub. No murmur heard. Symmetric radial artery pulses Pulmonary/Chest: Effort normal. No stridor. No respiratory distress. Lung sounds generally clear with good aeration. No wheezes. No rales. No rhonchi . No tenderness. Abdominal: Soft. Bowel sounds normal. No distension. No mass and no sign of any clear abdominal hernia. Diffuse tenderness. No rebound. No guarding. Musculoskeletal: RUE: Normal range of motion. No tenderness. No deformity LUE: Normal range of motion. No tenderness. No deformity RLE: Normal range of motion. No edema. No tenderness. No deformity LLE: Normal range of motion. No edema. No tenderness. No deformity Neurological: Alert and oriented to person, place, and time. Normal strength. CN II-VII intact. No sensory deficit. GCS eye subscore is 4. GCS verbal subscore is 5. GCS motor subscore is 6. Normal coordination Skin: Skin is warm and dry. No rash noted. No pallor. Normal capillary refill. Psychiatric: Normal mood. At times tearful and worried. Very polite. On the whole she is very matter of fact. Const: Vital Signs, click to edit/add: Vital Signs - 24 hr 08/14/24 15:18 08/14/24 15:25 08/14/24 15:29 Temperature 98.7 F Pulse Rate 95 Pulse Rate [Pulse Oximeter] 94 Respiratory Rate 24 Blood Pressure Blood Pressure [Ri ght Upper Arm] 115/75 Pulse Oximetry 85 L 90 84 L Oxygen Delivery Me thod Room Air Nasal Cannula Oxygen Flow Rate 4 08/14/24 15:30 08/14/24 15:32 08/14/24 15:45 Temperature Pulse Rate 94 93 91 Pulse Rate [Pulse Oximeter] Respiratory Rate 12 0 L 9 L Blood Pressure 111/63 Blood Pressure [Ri ght Upper Arm] Pulse Oximetry 86 L 91 93 Oxygen Delivery Me thod Oxygen Flow Rate 08/14/24 16:00 08/14/24 16:02 08/14/24 16:15 Temperature Pulse Rate 90 89 89 Pulse Rate [Pulse Oximeter] Respiratory Rate 12 19 16 Blood Pressure 96/69 Blood Pressure [Ri ght Upper Arm] Pulse Oximetry 93 91 92 Oxygen Delivery Me thod Oxygen Flow Rate 08/14/24 16:30 08/14/24 16:32 08/14/24 17:04 Temperature Pulse Rate 90 91 89 Pulse Rate [Pulse Oximeter] Respiratory Rate 30 H 55 H 20 Blood Pressure 95/67 Blood Pressure [Ri ght Upper Arm] Pulse Oximetry 92 90 90 Oxygen Delivery Me thod Nasal Cannula Oxygen Flow Rate 4 08/14/24 17:15 08/14/24 17:30 08/14/24 17:32 Temperature Pulse Rate 84 87 89 Pulse Rate [Pulse Oximeter] Respiratory Rate 28 H 18 17 Blood Pressure 100/63 Blood Pressure [Ri ght Upper Arm] Pulse Oximetry 92 94 88 Oxygen Delivery Me thod Oxygen Flow Rate 08/14/24 17:45 08/14/24 18:00 08/14/24 18:02 Temperature Pulse Rate 86 87 86 Pulse Rate [Pulse Oximeter] Respiratory Rate 22 14 19 Blood Pressure 123/82 Blood Pressure [Ri ght Upper Arm] Pulse Oximetry 92 94 93 Oxygen Delivery Me thod Oxygen Flow Rate Course Course ED Course: No change after neb. Still satting in the mid low 90s on 4 L nasal cannula. Reevaluation(s) Reevaluation #1: I reviewed the patient's chest CT. I am concerned that it shows bilateral pulmonary emboli. Still to be read by Radiology. Given my high clinical suspicion I did order empiric anticoagulation. Discussed with hospitalist Dr. Downs about options for anticoagulation. He would agree with initiation of DOAC, rather than heparin or Lovenox. At this point although she does have signs of right heart strain she is not hypotensive or tachycardic and would not be a candidate for thrombolytics or catheter directed therapies requiring transfer. Reevaluation #2: Recheck-receive phone call from Radiology, Dr. Adams. He confirms the presence of bilateral pulmonary emboli with a moderate to large clot burden. There are radiographic signs of right heart strain. Otherwise the CT abdomen pelvis shows no acute findings. Reevaluation #3: Recheck-patient notes that her burning abdominal pain is tremendously better after the GI cocktail. Still on nasal cannula. Discussed the presence of PEs. Discussed with our hospitalist, Dr. Downs, who accepts for admission to the hospital. Vital Signs Vital signs: Initial Vital Signs Temperature 98.7 F 08/14/24 15:18 Temperature Source Oral 08/14/24 15:18 Pulse Rate 94 08/14/24 15:18 Pulse Rhythm Regular 08/14/24 15:18 Respiratory Rate 08/14/24 15:18 Blood Pressure 115/75 08/14/24 15:18 Blood Pressure Mean 88 08/14/24 15:18 Blood Pressure Position Supine 08/14/24 15:18 Pulse Oximetry 85 L 08/14/24 15:18 Oxygen Delivery Method Room Air 08/14/24 15:18 Vital Signs Temperature 98.7 F 08/14/24 15:18 Pulse Rate 94 08/14/24 15:18 Respiratory Rate 08/14/24 15:18 Blood Pressure 115/75 08/14/24 15:18 Pulse Oximetry 85 L 08/14/24 15:18 Oxygen Delivery Method Room Air 08/14/24 15:18 Temperature 98.7 F 08/14/24 15:18 Pulse Rate 86 08/14/24 18:02 Respiratory Rate 19 08/14/24 18:02 Blood Pressure 123/82 08/14/24 18:02 Pulse Oximetry 93 08/14/24 18:02 Oxygen Delivery Method Nasal Cannula 08/14/24 17:04 Oxygen Flow Rate 4 08/14/24 17:04 Medications Administered Medications: Discontinued Medications Generic Name Dose Route Start Last Admin Trade Name Freq PRN Reason Stop Dose Admin Albuterol/Ipratropium 1 neb 08/14/24 15:49 08/14/24 17:16 Iprat-Albut 0.5-2.5 Mg/3 Ml Neb IH 08/14/24 15:50 1 neb ONCE ONE Administration Apixaban 10 mg 08/14/24 17:17 08/14/24 17:33 Apixaban 5 Mg Tablet PO 08/14/24 17:18 10 mg ONCE ONE Administration Lidocaine/Aluminum/Magnesium/Simeth 30 ml 08/14/24 15:49 08/14/24 17:10 Gi Cocktail (Visc Lido/Antacid) 30 Ml PO 08/14/24 15:50 30 ml ONCE ONE Administration Medical Decision Making MDM Narrative Medical decision making narrative: 64-year-old female presenting to the ER today with multiple concerns. These include chest pain and shortness of breath for the past couple of days, also burning generalized abdominal pain for the past several days, and prior to that and episode of vomiting and diarrhea that had been going to ongoing for about a week but has not resolved. She also has recent diagnosis of UTI and is currently on Keflex. 1. Chest pain/shortness of breath. She is hypoxic requiring nasal cannula but at this point is not requiring positive-pressure ventilation or intubation. She does have a history of asthma but says that her chest symptoms do not feel typical for her usual asthma attack. She is not wheezing on my exam here but we did try an empiric DuoNeb without improvement. She does have a chronic cough unchanged from baseline. COVID/influenza/RSV PCR is negative. With clear lungs, new hypoxia and chest pain, with recent illness consider possible PE. CT PAs obtained and shows bilateral pulmonary emboli. She is requiring oxygen will require hospitalization but at this point no indication for transfer for IR catheter directed therapies. Nothing to push us toward thrombolytics yet. In discussion with hospitalist, will start her on Eliquis for anticoagulation. First dose administered here in the ER. I have also ordered a lower extremity DVT on behalf of the hospitalist to help get a better sense of the patient's overall clot burden. This result will be followed by the admitting hospitalist, Dr. Downs. 2. Abdominal pain. She has generalized abdominal pain. Exam reveals no obvious source for pain such as a clearly incarcerated hernia. However my exam is limited by her body habitus. Laboratory workup shows reassuring labs.. CT showed no acute findings in the abdomen pelvis. Patient noted significant improvement in her pain after GI cocktail which could suggest that her pain is possibly related to gastritis after having been unable to take her PPI for several days with her GI illness. 3. She was diagnosed with the UTI couple of days ago and culture grows E coli sensitive to her cephalexin. Repeat urinalysis today is ordered but not obtained yet here in the ER. At this point she is not febrile or showing signs of urosepsis. Patient is graciously accepted for admission by Dr. Downs. Please see hospitalist notes for further details about admission status and further workup. Lab Data Labs: Lab Results 08/14/24 08/14/24 Range/Units 15:25 16:25 WBC 10.59 (4.50-11.00) K/uL RBC 4.77 (4.00-5.20) m/uL Hgb 13.6 (12.0-16.0) gm/dL Hct 43.0 (33.0-51.0) % MCV 90 (80-100) fL MCH 29 (26-34) pg MCHC 32 (32-36) gm/dL RDW Coeff of Jayna 14.0 (11.5-15.5) % Plt Count 188 (140-440) K/uL Neut % (Auto) 77.8 H (42.0-72.0) % Lymph % (Auto) 13.9 L (20-44) % [place] % (Auto) 6.1 (0.0-11.0) % Eos % (Auto) 1.9 (0.0-7.0) % Baso % (Auto) 0.1 (0.0-3.0) % Neut # (Auto) 8.20 H (1.7-7.0) K/uL Lymph # (Auto) 1.50 (0.90-2.90) K/uL [place] # (Auto) 0.60 (0.00-0.90) K/UL Eos # (Auto) 0.20 (0.00-0.50) K/uL Baso # (Auto) 0.01 (0.00-0.30) K/uL Abs Immat Gran (auto) 0.02 (0.00-0.30) K/uL Imm/Tot Granulo (auto) 0.2 % VBG pH 7.392 (7.32-7.43) VBG pCO2 47 (40-50) mmHG VBG pO2 31.8 (25-47) mmHG VBG HCO3 28 (21-28) mmol/L Sodium 140 (135-149) mmol/L Potassium 4.5 (3.6-5.1) mmol/L Chloride 104 (96-114) mmol/L Carbon Dioxide 27 (20-32) mmol/L Anion Gap 9 (7-15) mEq/L BUN 23 (7-30) mg/dL Creatinine 1.2 (0.5-1.5) mg/dL Estimated Creat Clear 41.44 Estimated GFR 51 ml/min Glucose 203 H (60-115) mg/dL Lactate 1.9 (0.5-1.9) mmol/L Calcium 8.5 (8.4-10.6) mg/dL Total Bilirubin 0.5 (0.1-1.5) mg/dL AST 26 (12-35) U/L ALT 15 (4-35) U/L Alkaline Phosphatase 88 (40-150) U/L Troponin I 0.06 H* (0.01-0.04) ng/mL NT-Pro-B Natriuret Pep 7350 pg/mL Total Protein 6.9 (6.0-8.3) g/dL Albumin 3.6 (3.3-5.0) g/dL Lipase 90 (23-300) U/L SARS-CoV-2 (PCR) Negative SARS-CoV-2 (Negative) Influenza Type A (PCR) Negative PCR FLU A (Negative) Influenza Type B (PCR) Negative PCR FLU B (Negative) RSV (PCR) Negative PCR RSV (Negative) Discharge Plan Discharge Clinical Impression: Pulmonary emboli, Hypoxia Patient Disposition: Admitted As Observation
--- NOTE | 2024-08-14 15:58 | RESP.RT ---
Pt requiring 4L NC to maintain SPo2 around 90%. Pt RR 18-32 depending if talking or moving. Pt has been sleeping in Recliner or Bed with HOB on 2 blocks. BBS clear, good aeration.
[2024-08-14 16:17] LABS: PCR FLU A Negative PCR FLU A (Negative); PCR FLU B Negative PCR FLU B (Negative); PCR RSV Negative PCR RSV (Negative); SARS PCR* Negative SARS-CoV-2 (Negative)
[2024-08-14 16:36] LABS: HCO3 VBG 28 mmol/L (21-28); Lactate* 1.9 mmol/L (0.5-1.9); PCO2 VBG 47 mmHG (40-50); PO2 VBG 31.8 mmHG (25-47); pH VBG 7.392 (7.32-7.43)
[2024-08-14 16:37] LABS: Basophils Absolute Auto 0.01 K/uL (0.00-0.30); Basophils Percent Auto 0.1 % (0.0-3.0); Eosinophils Percent Auto 1.9 % (0.0-7.0); Hemoglobin* 13.6 gm/dL (12.0-16.0); Immature Granulocytes Abs Auto 0.02 K/uL (0.00-0.30); Immature Granulocytes Pct Auto 0.2 %; Lymphocytes Percent Auto 13.9 % (20-44); Mean Corpuscular HGB Conc 32 gm/dL (32-36); Mean Corpuscular Hemoglobin 29 pg (26-34); Mean Corpuscular Volume 90 fL (80-100); Monocytes Percent Auto 6.1 % (0.0-11.0); Neutrophils Percent Auto 77.8 % (42.0-72.0); Platelet Count* 188 K/uL (140-440); Red Blood Count 4.77 m/uL (4.00-5.20); White Blood Count* 10.59 K/uL (4.50-11.00)
[2024-08-14 16:39] LABS: Slide Review Reflex No
[2024-08-14 16:51] LABS: Albumin* 3.6 g/dL (3.3-5.0); Chloride* 104 mmol/L (96-114); Potassium* 4.5 mmol/L (3.6-5.1); Sodium* 140 mmol/L (135-149)
[2024-08-14 16:54] LABS: Alanine Aminotransferase* 15 U/L (4-35); Alkaline Phosphatase* 88 U/L (40-150); Anion Gap 9 mEq/L (7-15); Aspartate Amino Transferase* 26 U/L (12-35); Bilirubin Total* 0.5 mg/dL (0.1-1.5); Blood Urea Nitrogen* 23 mg/dL (7-30); Calcium* 8.5 mg/dL (8.4-10.6); Carbon Dioxide* 27 mmol/L (20-32); Creatinine* 1.2 mg/dL (0.5-1.5); Est. Creatinine Clearance* 41.44; Estimated Glomerular Filt Rate 51 ml/min; Glucose* 203 mg/dL (60-115); Lipase* 90 U/L (23-300); Total Protein* 6.9 g/dL (6.0-8.3)
[2024-08-14 17:06] LABS: NT Pro B Type NatriureticPept* 7350 pg/mL
[2024-08-14 17:09] LABS: Troponin I* 0.06 ng/mL (0.01-0.04)
[2024-08-14] MEDS: GI COCKTAIL (VISC LIDO/ANTACID) 30 ML PO (17:10)
--- OUTSIDE RECORDS SUMMARY | 2024-08-14 17:13 | XMS_ITS | Clinical Summary ---
Author Organization [facility] Address [facility] [place] [address] Care Team Providers Care Baseball Glove Stuffer Name Role Phone Antonette James MD Primary Care Prov ider Andrew Bower Unavailable Unavailab Ramirez Garcia PharmD Unavailable [phone] Keyanna Figueroa RN Unavailable Allergies Active Allergy [...] 180 mg daily 06/05/19 16 Active ONETOUCH [id number] :Diabetes mellitus type 2, uncomplicated (HC) 1 Each 0 06/05/19 16 Active omega-3 fatty acids-vitamin E (FISH OIL) 1,000 mg cap Take 1 capsule by mouth 2 times daily. 0 06/06/19 17 Active gtrnbwrg-jmvl-eqw 3-L-kcmo-bosw (OSTEO BI-FLEX TRIPLE STRENGTH) 750 mg-644 mg- [...] 11 11/27/19 24 Active blood sugar diagnostic (TruLeaf Ultra Test) stripIndications: Diabetes mellitus without complication (HC) Use as directed to test blood glucose three times daily. 400 Each 3 5 4:51 PM [employer] 11/27/19 24 Active cyclobenzaprine (FLEXERIL) 10 mg [...] daily. 500 Each 3 5 4:51 PM [employer] 11/27/19 24 Active lancets 33 gauge miscIndications:D iabetes mellitus without complication (HC) Dispense item covered by pt ins. E11.9 NIDDM type II - Test 3 times/day, Reason: High A1C. 400 Each 3 11/27/19 24 Active tiotropium bromide (Spiriva Respimat) 2.5 mcg/actuation mist for inhalationIndicat ions:Moderate persistent asthma without complication (HC) Inhale 2 Puffs by mouth once daily. 4 g 4 5 4:51 PM [employer] 11/27/19 24 Active albuterol HFA (Ventolin HFA) [...] be used to read blood sugars per board certified arts therapist's directions. Change each sensor every 14 days 6 Each 12 5 11:08 AM CDT 01/12/20 24 Active COVID-19 antigen test (Flowflex COVID-19 Ag Home Test) kit Use as directed on packaging. 4 Kit 5 4:51 PM [employer] 04/19/20 24 Active budesonide (PULMICORT RESPULES) 0.5 mg/2 mL neb suspensionIndicat ions:Moderate persistent asthma without complication (HC) Inhale 2 mL (0.5 mg) via a nebulizer two times daily. 180 mL 1 04/29/19 25 Active trimethoprim 100 mg tablet Take 1 Tablet (100 mg) by mouth once daily in the evening. 90 Tablet 3 5 3:21 PM [employer] 06/15/19 25 Active sertraline 50 mg tabletIndications [...] morning. 90 Tablet 1 5 4:49 PM [employer] 04/29/19 25 025 Discontin ued(Reord er (E-cancel [...] Description 08/11/2024 2:40 PM CDT Office Visit [facility] [[email or web address] [address] [place] [address] Johanna Harden MD Concerns (9 days ago vomiting and diarrhea started. Lasted for 4 days. /Still having nausea, dizziness, SOB, vomiting ) 08/11/2024 Travel 07/22/2024 12:20 PM CDT Office Visit [facility] [[email or web address]] [address] [place] [address] Antonette James MD Diabetes 07/22/2024 Travel 05/19/2024 11:10 AM [employer] PA[employer] Office Visit [facility] [[email or web address]] [address] [place] [address] Antonette James MD Hospital F/U 05/19/2024 Travel from Last 3 Months Immunizations Immunization Administration Dates Next Due COVID-19 vaccine ([employer] 30mcg/0.3mL) PF, MDV 05/30/2020,05/08/2020 INFLUENZA, IIV3 [...] on file Legal Sex Female 6:05 AM [employer] PA[employer] Gender Identity Not on file Sexual Orientation Not on file Occupation Industry Job Start Date Job End Date [employer] [facility] [employer] Not on file Not on file [...] 37.2 C (98.9 F) 05/09/2024 6:21 PM [employer] Respiratory Rate 22 05/09/2024 8:15 PM [employer] Oxygen Saturation 97% 08/11/2024 2:51 PM CDT Inhaled Oxygen Concentration - - Weight 187.3 kg (413 lb) 08/11/2024 2:51 PM CDT Height 162.6 cm (5' 4) 05/09/2024 6:21 PM [employer] Body Mass Index 70.89 05/09/2024 6:21 PM [employer] Plan of Treatment Health Maintenance Due Date [...] Date/Time Associated Diagnosis Comments URINALYSIS MACROSCOPIC - [facility] ONLY POC DIP ([facility]) Routine 08/11/2024 [...] (HC) URINALYSIS MICROSCOPIC Routine 05/19/2024 12:40 PM [employer] Recurrent UTI URINE CULTURE Routine 05/19/2024 12:40 PM [employer] Recurrent UTI LIPID PANEL W REFLEX MEASURED [...] Results * (ABNORMAL) POCT Urinalysis Dipstick Only [[id number]] (08/11/2024 4:47 PM CDT) PH 6.0 5.0 - 8.0 [facility] SPECIFIC GRAVITY 1.020 1.001 - 1.035 [facility] GLUCOSE NEGATIVE NEGATIVE [facility] BILIRUBIN NEGATIVE NEGATIVE [facility] KETONES NEGATIVE NEGATIVE [facility] OCCULT BLOOD TRACE(A) NEGATIVE [facility] PROTEIN 1+(A) NEGATIVE [facility] NITRITE POSITIVE(A) NEGATIVE [facility] LEUKOCYTE ESTERASE 1+(A) NEGATIVE [facility] Urine URINE SPECIMEN / Unknown 08/11/2024 4:47 PM CDT 08/11/2024 4:47 PM CDT Johanna Harden MD URINE Fi nal Result [facility] [address] [place] [address], [facility] [address] [place] [address] * (ABNORMAL) URINALYSIS MICROSCOPIC [07895.1] - routine (08/11/2024 4:45 PM CDT) Only the most recent of2 resultswithin the time period is included. RBC 0-2 0-2, None Seen /HPF 08/11/2024 10:50 PM CDT [facility] WBC 51-100(A) 0-2, 3-5, None Seen /HPF 08/11/2024 10:50 PM CDT [facility] BACTERIA Many(A) None Seen, Rare, Few Bacteria/ HPF 08/11/2024 10:50 PM CDT [facility] EPITHELIAL CELLS Few None Seen, Few Epi/HPF 08/11/2024 10:50 PM CDT [facility] HYALINE CASTS 3-5 0-2, 3-5 /LPF 08/11/2024 10:50 PM CDT [facility] Urine URINE SPECIMEN / Unknown Non-Blood / Unknown 08/11/2024 4:45 PM CDT 08/11/2024 4:45 PM CDT us Johanna Harden MD URINE Fi nal Result [facility] [address] [place] [address], * (ABNORMAL) URINE CULTURE [70891.2] (08/11/2024 4:45 PM CDT) Only the most recent of2 resultswithin the time period is included. CULTURE RESULT(A) 08/14/2024 7:15 AM CDT [facility] CULTURE >100,000 CFU/mL Escherichia coli 08/14/2024 7:15 AM CDT [facility] Urine URINE SPECIMEN / Unknown [...] <=16: S us Johanna Harden MD MICROBIOLOGY [facility] Result [facility] [address] [place] [address], * CBC AND DIFFERENTIAL (08/11/2024 3:36 PM CDT) WHITE BLOOD CELL COUNT 9.8 3.8 - 10.8 Thousand/u L [facility] RED BLOOD CELL COUNT 4.93 3.80 - 5.10 Million/uL [facility] HEMOGLOBIN 14.1 11.7 - 15.5 g/dL [facility] HEMATOCRIT 43.5 35.0 - 45.0 [...] [facility] MONOCYTES 5.8 % [facility] EOSINOPHILS 1.9 % [facility] BASOPHILS 0.5 % [facility] Blood BLOOD SPECIMEN / Unknown 08/11/2024 3:36 PM CDT 08/11/2024 3:37 PM CDT Johanna Harden MD HEMATOLOGY Fi nal Result [facility] [address] [place] [address], [facility] [address] [place] [address] * (ABNORMAL) BASIC METABOLIC PANEL (08/11/2024 3:36 PM CDT) GLUCOSE 159(H) 65 - 99 mg/dL [facility] Comment: Fasting reference interval For someone without known diabetes, a glucose value >125 mg/dL indicates that they may have diabetes and this should be confirmed with a follow-up test. UREA NITROGEN (BUN) 15 7 - 25 mg/dL [facility] CREATININE 1.06(H) 0.50 - 1.05 mg/dL [...] Johanna Harden MD CHEMISTRY Fi nal Result [facility] [place] [address] [place] [address], [facility] [address] * (ABNORMAL) HEMOGLOBIN A1C MONITORING (POCT) (07/22/2024 12:25 PM CDT) POC HEMOGLOBIN A1C 7.0(H) <6.0 % OF TOTAL HGB [facility] Comment: Any point of care results exhibiting inconsistency with the patient's clinical status should be repeated using a different testing method. Blood BLOOD SPECIMEN / Unknown 07/22/2024 12:25 PM CDT 07/22/2024 12:25 PM CDT Antonette James MD CHEMISTRY Fi nal Result [facility] [address] [place] [address], [facility] [address] [place] [address] * (ABNORMAL) LIPID PANEL W REFLEX MEASURED LDL (11/24/2023 11:08 AM CDT) CHOLESTEROL,TOTAL 142 100 - 199 mg/dL 11/25/2023 6:12 AM CDT [facility] Comment: Cholesterol, Total Reference Ranges Desirable <200 mg/dL Borderline 200-239 mg/dL High >=240 mg/dL TRIGLYCERIDES 100 <150 mg/dL 11/25/2023 6:12 AM CDT [facility] HDL CHOLESTEROL 40(L) >40 mg/dL 6:12 AM CDT [facility] NON-HDL CHOLESTEROL 102 <145 mg/dl 11/25/2023 6:12 AM CDT [facility] CHOL/HDL RATIO 3.55 <4.50 11/25/2023 6:12 AM CDT [facility] LDL CHOLESTEROL 82 <=130 mg/dL 11/25/2023 6:12 AM CDT [facility] VLDL CHOLESTEROL 20 <=30 mg/dL 11/25/2023 6:12 AM CDT [facility] PROVIDER ORDERED STATUS RANDOM 11/25/2023 6:12 AM T [facility] Blood BLOOD SPECIMEN / Unknown Venipuncture / Unknown 11/24/2023 11:08 AM CDT 11/24/2023 11:10 AM CDT us Antonette James MD CHEMISTRY Fi nal Result [facility] [address] [place] [address], * XR MAMMO CURT BILAT SCREEN (07/29/2023 [...] care provider. XR MAMMO CURT BILAT SCREEN [[id number]] CLINICAL HISTORY: This is an asymptomatic 63 y.o. patient. INDICATION FOR EXAM: Mammogram Screening. TECHNIQUE: CC & MLO views were obtained. This study was evaluated with the assistance of Computer-Aided Detection. Breast Tomosynthesis was used in interpretation. COMPARISON FILM: Yes 10/25/21 [facility] [employer] 09/12/20 [facility] FINDINGS: The breasts are almost entirely fatty. There are no dominant masses, suspicious micro calcifications or areas of architectural distortion. Antonette James MD MAMMO Fi nal Result * HPV HIGH RISK (10/25/2021 11:20 AM CDT) TYPE 16 Negative Negative 10/29/2021 5:35 PM CDT [facility] TYPE 18 Negative Negative 10/29/2021 5:35 PM CDT [facility] OTHER HIGH RISK TYPES Negative Negative 10/29/2021 5:35 PM CDT [facility] Other (Cervical) Non-Blood / Unknown 10/25/2021 11:20 AM CDT 10/26/2021 2:14 PM CDT Narrative [facility] - 10/29/2021 5:35 PM CDT HPV types 16, 18, 31, 33, 35, 39, 45, 51, 52, 56, 58, 59, 66 and 68 DNA were undetectable or below the pre-set threshold. Methodology: [employer] 4800 HPV Test Antonette James MD MICROBIOLOGY Fi nal Result [facility] [address] [place] [address], * COLONOSCOPY SCREENING (01/08/2021 12:00 AM CDT) Antonette James MD GI PROCEDURE ORD F inal Result * ANTI HIV 1/2 (08/18/2017 12:14 PM CDT) HIV-1/HIV-2 ANTIBODY Non-Reacti ve Non-Reacti ve 08/18/2017 5:43 PM CDT [facility] Comment:HIV-1 p24 and HIV-1/ HIV-2 Ab not detected. Blood BLOOD SPECIMEN / Unknown Venipuncture / Unknown 08/18/2017 12:14 PM CDT 08/18/2017 12:14 PM CDT Antonette James MD SEND OUTS Fi nal Result Performing Organization Address City/[facility]/ZIP Co de Phone Number [facility] [address] [place] [address], * ANTI HCV [04044.2] (08/22/2016 9:48 AM CDT) HEPATITIS C ANTIBODY Non-Reacti ve Non-Reacti ve 08/22/2016 6:54 PM CDT [facility] Blood BLOOD SPECIMEN / Unknown Venipuncture / Unknown 08/22/2016 9:48 AM CDT 08/22/2016 9:48 AM CDT Narrative [facility] - 08/22/2016 6:54 PM CDT Antibodies to HCV not detected; does not exclude the possibility of exposure to HCV. Antonette James MD SEND OUTS Fi nal Result [facility] [address] [place] [address], from Last 3 Months or Most Recently Relevant to Health Maintenance Additional Health Concerns Infection Onset Date Last Indicated MRSA 08/11/2018 01/08/2024 Insurance [employer] [place] [address] Advance Directives * Full Code (Latest Code Status on File) Date Activated Date Inactivated Comments 08/16/2022 11:09 AM 08/16/2022 5:16 PM Question Answer Comments Code Status Discussion: Reviewed Preferences Care Teams Baseball Glove Stuffer Relationship Specialty Start Date End Date Antonette Jamse MD PCP - General 12/21/09 Andrew Bower General Surgery Surgery - General 08/15/11 Ramirez Tello, PharmD Pharmacist Medication Management Pharmacology 10/28/18 Keyanna Figueroa, RN [address] [place] [id number] 11/07/21
[2024-08-14] MEDS: IPRAT-ALBUT 0.5-2.5 MG/3 ML NEB 1 NEB IH (17:16)
[2024-08-14] MEDS: APIXABAN 5 MG TABLET 10 MG PO ×2 (17:33→23:36)
--- NOTE | 2024-08-14 17:49 | CRLHL7_ITS ---
For Patients: As a result of the Century Cures Act, medical imaging exams and procedure reports are released immediately into your electronic medical record. You may view this report before your referring provider. If you have questions, please contact your health care provider. INDICATION: Pulmonary emboli, evaluate for DVT. TECHNIQUE: Ultrasound venous duplex bilateral lower extremity. Compression venous exam was performed using holbrook-scale, color Doppler, and spectral Doppler analysis. COMPARISON: None. FINDINGS: Deep veins: Sonographic imaging demonstrates the bilateral common femoral, deep femoral, superficial femoral, popliteal, peroneal, and posterior tibial veins to be fully compressible with normal color Doppler blood flow. Superficial veins: Greater saphenous veins are fully compressible. No popliteal cyst. IMPRESSION: No evidence of deep venous thrombosis within the evaluated veins of the bilateral lower extremities. Dictated by David Way MD @ 08/14/2024 8:01:38 PM (Electronically Signed)
--- NOTE | 2024-08-14 18:38 | P.IMHP_ITS ---
Assessment and Plan Assessment and plan (1) Hypoxia: Problem comment: Significant hypoxia. Likely untreated sleep apnea contributing to hypoxia along with acute pulmonary emboli Status: Acute (2) Pulmonary emboli: Problem comment: Apparently unprovoked. Primary risk factor appears to be obesity. Status: Acute (3) Morbid obesity: Status: Acute (4) Epigastric abdominal pain: Problem comment: Described as burning sensation. Cause for this is uncertain. Considerations include gastroesophageal reflux and biliary disease. Needs ongoing evaluation possibly including repeat EGD and/or right upper quadrant ultrasound. Status: Acute (5) Nausea: Problem comment: Patient has recurrent episodes of nausea which she attributes to urinary tract infection. When she feels nausea she gets a UA and it is typically showing infection. Treating the infection does not always resolve her nausea. Status: Acute (6) Recurrent UTI: Problem comment: Patient reports recurrent urinary tract infections. She has not ever had specific urinary symptoms. Last year she did have a fever and was treated for a serious urinary infection. Otherwise her symptom is primarily nausea. Episodes of nausea lead to urinalysis and antibiotic treatment for UTI. This is not reliably resolved the nausea. Continue Keflex for current UTI. Status: Acute Plan Patient is admitted to the hospital with hypoxic respiratory failure due to acute pulmonary emboli. CT evidence of right heart strain. Initiate anticoagulation with apixaban. Close monitoring of vital signs. At risk for chronic respiratory failure due to morbid obesity, right heart failure, sleep apnea, asthma Total Time Spent Total Time Spent: Total time spent today is 80 minutes in coordination of care, review of outside records and discussing patient and other providers ongoing evaluation management of pulmonary embolism and epigastric abdominal pain and nausea Hospitalist- H&P: HPI History of Present Illness Date Seen: 08/14/24 Chief complaint: trouble breathing Narrative: Emergency department history of present illness: 64-year-old female with a history of arthritis, elevated BMI/obesity, type 2 diabetes, GERD, sleep apnea, asthma. She presents to the ER today with several concerns including chest pain and shortness of breath, dyspnea on exertion, generalized burning abdominal pain, and recent UTI. History from patient is that she got sick about 2 weeks ago with a several day illness of vomiting and diarrhea. She had picked up some sort of stomach bug from her daughter. Her is also sick with similar symptoms. She was never tested but she presumes she probably had norovirus. It sounds like the symptoms lasted for 5 or 6 days and then got better to the point where she was able to go back to work for 1 day and then recurred again with a few more days of vomiting. She was not able to take all of her oral meds while she was sick including not able to take her Prilosec (she is normally on Prilosec 40 mg b.i.d.). The vomiting and diarrhea have been gone now for the past several days. However she has developed a more generalized diffuse abdominal burning pain. She went to her primary clinic the other day. Labs were reassuring save for signs of UTI so she was started on antibiotics for that. Her doctor called her today and told her that based on the urine culture her antibiotic should be appropriate for treating her bladder infection. Her doctors 3 about the burning pain was that she probably had developed some irritation or gastritis after having had been off her Prilosec for several days. Beginning 2 days ago on she has also developed generalized weakness, dyspnea on exertion, shortness of breath at rest, and is diffuse centralized chest discomfort. Her chest has been hurting continuously for the past couple of days. She says she cannot catch her breath. However, she says that her chest tightness does not feel like her previous asthma attacks. She has a chronic cough but is not changed from baseline. No new production of sputum. No new fever or chills. Given ongoing chest pain and shortness of breath she came to the ER today. She was noted to be hypoxic when she presented to the ER (85% on room air at triage) but has never been the source of hypoxic before and is not on any home oxygen. Additional hospitalist history: Patient reports her gastrointestinal illness with vomiting and diarrhea lasted about for 5 days and ended a week ago. Since then she has had persistent epigastric burning and nausea without vomiting. No more diarrhea. She has been eating very little, primarily clear liquids to maintain her blood sugar. She is not having other abdominal pain other than a persistent burning sensation. She has known gastroesophageal reflux and takes omeprazole 40 mg twice daily for this. She reports if she does not take her omeprazole she gets a similar burning but usually it is up in her chest. This burning is in her epigastrium. She had normal EGD in December 2020. She has had no previous history of thrombophilia. No previous DVT or PE. Family history is notable only for her mother having been on Coumadin while she was being treated for breast cancer. Possibly this was due to thrombosis. She does not personally have a history of cancer. She does not smoke. She has not had any immobilization or recent hospitalization or surgery. She did hurt her knee a couple months ago but was not immobilized. She was quite ill last week without being bed ridden. She has been on a Mirena IUD for the last couple years for uterine bleeding. This is been effectively stopping her uterine bleeding. Review of Systems Narrative: Ongoing intertriginous irritation and rash under her pannus and breasts. [facility] Medical History (Updated 08/14/24 @ 19:10 by Stefan Downs MD) Recurrent UTI ?N39.0 - Urinary tract infection, site not specified (ICD-10) Nausea ?R11.0 - Nausea (ICD-10) Foreign body in foot ?S90.859A - Superficial foreign body, unspecified foot, initial encounter (ICD-10) Ventral hernia, recurrent ?K43.2 - Incisional hernia without obstruction or gangrene (ICD-10) TO (obstructive sleep apnea) ?G47.33 - Obstructive sleep apnea (adult) (pediatric) (ICD-10) Unspecified asthma ?J45.909 - Unspecified asthma, uncomplicated (ICD-10) Lumbar disc herniation with radiculopathy ?M51.16 - Intervertebral disc disorders with radiculopathy, lumbar region (ICD-10) Personal history of colonic polyps ?Z86.0100 - Personal history of colon polyps, unspecified (ICD-10) Esophageal reflux ?K21.9 - Gastro-esophageal reflux disease without esophagitis (ICD-10) Vitamin D deficiency ?E55.9 - Vitamin D deficiency, unspecified (ICD-10) Morbid obesity ?E66.01 - Morbid (severe) obesity due to excess calories (ICD-10) Other and unspecified hyperlipidemia ?E78.5 - Hyperlipidemia, unspecified (ICD-10) Type 2 diabetes mellitus ?E11.9 - Type 2 diabetes mellitus without complications (ICD-10) Unspecified essential hypertension ?I10 - Essential (primary) hypertension (ICD-10) Surgical History (Updated 04/27/24 @ 07:59 by Maria Teresa Hayes ~ [employer]IGH [employer]PUT[employer] SCIENCE [employer]ER, [employer]) History of hysteroscopy ?Z98.890 - Other specified postprocedural states (ICD-10) H/O wisdom tooth extraction ?K08.409 - Partial loss of teeth, unspecified cause, unspecified class (ICD- 10) H/O hernia repair ?Z98.890 - Other specified postprocedural states (ICD-10) ?Z87.19 - Personal history of other diseases of the digestive system (ICD-10) H/O esophagogastroduodenoscopy ?Z98.890 - Other specified postprocedural states (ICD-10) H/O bilateral cataract extraction ?Z98.41 - Cataract extraction status, right eye (ICD-10) ?Z98.42 - Cataract extraction status, left eye (ICD-10) S/P breast lumpectomy ?Z98.890 - Other specified postprocedural states (ICD-10) S/P D&C (status post dilation and curettage) ?Z98.890 - Other specified postprocedural states (ICD-10) Family History (Updated 08/14/24 @ 18:52 by Stefan Downs MD) Father High blood pressure Heart disease Mother Breast cancer Social History (Updated 08/14/24 @ 18:54 by Stefan Downs MD) Narrative: She lives with her , Ilan. She does not need eights him as healthcare power of district attorney. Code status is DNR. She has never smoked. She rarely drinks alcohol. 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 Smoking Status: Never smoker How often do you have a drink containing alcohol: monthly or less AUDIT-C Alcohol total score: 1 Non-prescribed substance use: denies use Meds Home Medications and Allergies Home Medications ?Medication ?Instructions ?Recorded ?Confirmed ?Type albuterol sulfate 2.5 mg/3 mL mg 04/23/24 05/18/24 History (0.083 %) solution for nebulization albuterol sulfate 90 mcg/actuation inhalation 04/23/24 05/18/24 History aerosol inhaler budesonide 0.5 mg/2 mL suspension mg 04/23/24 05/18/24 History for nebulization cyclobenzaprine 10 mg tablet 10 mg PO 3XD 04/23/24 05/18/24 History dulaglutide 3 mg/0.5 mL mg subcut 04/23/24 05/18/24 History subcutaneous pen injector (Trulicity) epinephrine 0.3 mg/0.3 mL 1 mg IM DAILY 04/23/24 05/18/24 History injection, auto-injector escitalopram oxalate 20 mg tablet 20 mg PO DAILY 04/23/24 05/18/24 History fluconazole 150 mg tablet PO 04/23/24 05/18/24 History fluticasone propionate 115 2 puff inhalation BID 04/23/24 05/18/24 History mcg-salmeterol 21 mcg/actuation HFA inhaler (Advair HFA) hydrochlorothiazide 25 mg tablet 25 mg PO DAILY 04/23/24 05/18/24 History insulin degludec 100 unit/mL 70 unit subcut HS 04/23/24 05/18/24 History subcutaneous solution (Tresiba U-100 Insulin) insulin lispro 100 unit/mL subcut 04/23/24 05/18/24 History subcutaneous solution (Humalog U-100 Insulin) levothyroxine 50 mcg tablet 50 mcg PO DAILY 04/23/24 05/18/24 History methylprednisolone 4 mg tablets in mg PO DIRECTED 04/23/24 05/18/24 History a dose pack metoprolol succinate 50 mg 50 mg PO DAILY 04/23/24 05/18/24 History tablet,extended release 24 hr nystatin 100,000 unit/gram topical 1 applic topical BID 04/23/24 05/18/24 History cream omeprazole 40 mg capsule,delayed 40 mg PO BID 04/23/24 05/18/24 History release ondansetron 4 mg disintegrating 4 mg PO Q8H PRN nausea/vomiting 04/23/24 05/18/24 History tablet sertraline 50 mg tablet 50 mg PO DAILY 04/23/24 05/18/24 History simvastatin 10 mg tablet 10 mg PO QPM 04/23/24 05/18/24 History tiotropium bromide 2.5 2 puff inhalation DAILY 04/23/24 05/18/24 History mcg/actuation mist for inhalation (Spiriva Respimat) Allergies Allergy/AdvReac Type Severity Reaction Status Date / Time lisinopril Allergy Mild cough Verified 08/14/24 16:46 metformin (From Glucophage) Allergy Mild vomiting Verified 08/14/24 16:46 azithromycin (From Zithromax) Allergy chest pain Verified 08/14/24 16:46 and difficulty breathing beetles Allergy swelling Uncoded 08/14/24 16:46 robertson garrick and ragweed Allergy wheezing Uncoded 08/14/24 16:46 Exam Narrative: Exam Narrative: She is alert and appears in no distress on supplemental oxygen. She is oriented to her circumstances. Speech is normal. No facial asymmetry. Oropharynx with small airway. Neck is supple without mass or adenopathy. Respirations are clear to auscultation. No wheezing rales or rhonchi. She has somewhat diminished breath sounds throughout all lung vazquez. Cardiovascular: S1, S2, regular rate and rhythm. No murmur gallop or rub. Abdomen: Bowel sounds active. Abdomen is soft without tenderness or mass. She has mild diffuse erythema with somewhat moist skin under both breasts and her abdominal pannus. Extremities without obvious edema redness or tenderness. Intact pedal pulses. Const: Vital Signs, click to edit/add: Vital Signs - 24 hr 08/14/24 15:18 08/14/24 15:25 08/14/24 15:29 Temperature 98.7 F Pulse Rate 95 Pulse Rate [Pulse Oximeter] 94 Respiratory Rate 24 Blood Pressure Blood Pressure [Ri ght Upper Arm] 115/75 Pulse Oximetry 85 L 90 84 L Oxygen Delivery Me thod Room Air Nasal Cannula Oxygen Flow Rate 4 08/14/24 15:30 08/14/24 15:32 08/14/24 15:45 Temperature Pulse Rate 94 93 91 Pulse Rate [Pulse Oximeter] Respiratory Rate 12 0 L 9 L Blood Pressure 111/63 Blood Pressure [Ri ght Upper Arm] Pulse Oximetry 86 L 91 93 Oxygen Delivery Me thod Oxygen Flow Rate 08/14/24 16:00 08/14/24 16:02 08/14/24 16:15 Temperature Pulse Rate 90 89 89 Pulse Rate [Pulse Oximeter] Respiratory Rate 12 19 16 Blood Pressure 96/69 Blood Pressure [Ri ght Upper Arm] Pulse Oximetry 93 91 92 Oxygen Delivery Me thod Oxygen Flow Rate 08/14/24 16:30 08/14/24 16:32 08/14/24 17:04 Temperature Pulse Rate 90 91 89 Pulse Rate [Pulse Oximeter] Respiratory Rate 30 H 55 H 20 Blood Pressure 95/67 Blood Pressure [Ri ght Upper Arm] Pulse Oximetry 92 90 90 Oxygen Delivery Me thod Nasal Cannula Oxygen Flow Rate 4 08/14/24 17:15 08/14/24 17:30 08/14/24 17:32 Temperature Pulse Rate 84 87 89 Pulse Rate [Pulse Oximeter] Respiratory Rate 28 H 18 17 Blood Pressure 100/63 Blood Pressure [Ri ght Upper Arm] Pulse Oximetry 92 94 88 Oxygen Delivery Me thod Oxygen Flow Rate 08/14/24 17:45 08/14/24 18:00 08/14/24 18:02 Temperature Pulse Rate 86 87 86 Pulse Rate [Pulse Oximeter] Respiratory Rate 22 14 19 Blood Pressure 123/82 Blood Pressure [Ri ght Upper Arm] Pulse Oximetry 92 94 93 Oxygen Delivery Me thod Oxygen Flow Rate Documenting provider has reviewed patient's vital signs: yes Hospitalist - H&P: Result Labs Labs: Short CBC 08/14/24 Range/Units 16:25 WBC 10.59 (4.50-11.00) K/uL Hgb 13.6 (12.0-16.0) gm/dL Hct 43.0 (33.0-51.0) % Plt Count 188 (140-440) K/uL BMP 08/14/24 16:25 Sodium 140 Potassium 4.5 Chloride 104 Carbon Dioxide 27 BUN 23 Creatinine 1.2 Glucose 203 H Calcium 8.5 Cardiac Enzymes 08/14/24 Range/Units 16:25 Troponin I 0.06 H* (0.01-0.04) ng/mL Liver Function 08/14/24 Range/Units 16:25 Total Bilirubin 0.5 (0.1-1.5) mg/dL AST 26 (12-35) U/L ALT 15 (4-35) U/L Alkaline Phosphatase 88 (40-150) U/L Albumin 3.6 (3.3-5.0) g/dL Imaging CT scan - abdomen: Radiologist's impression: INDICATION: Shortness of breath. Chest pain. Abdominal pain. TECHNIQUE: CT pulmonary angiogram followed by a CT scan of the abdomen and pelvis with 95 cc of Isovue-370 given intravenously. COMPARISON: CT scan of the abdomen and pelvis dated 11 March 2019. FINDINGS: Chest: Extensive bilateral lobar and segmental pulmonary emboli. Enlargement of the right side of the heart indicating right heart strain. No mediastinal or hilar adenopathy. No axillary adenopathy. The lungs show a 6 mm pulmonary nodule which appears partially calcified in the left lung apex. No other focal pulmonary opacities. No pneumothorax. Abdomen and pelvis: No focal abnormalities identified in the visualized portions of the liver, spleen, pancreas, adrenal glands, and kidneys. No hydronephrosis. No obstructing uroliths. IUD in the uterus. Colonic diverticulosis. The remainder of the GI tract is incompletely distended but shows no gross abnormalities. No retroperitoneal, pelvic sidewall, or mesenteric adenopathy. Atherosclerotic vascular calcifications. Mesh in the anterior abdominal wall. Degenerative changes of the spine. Impression : 1. Extensive bilateral lobar and segmental pulmonary emboli causing right heart strain. 2. No acute abnormalities of the abdomen or pelvis identified. 3. 6 mm pulmonary nodule in the left lung apex may be partially calcified and represent a granuloma. Recommend follow-up chest CT scan in 1 year to document stability. CT scan - chest: Radiologist's impression: INDICATION: Shortness of breath. Chest pain. Abdominal pain. TECHNIQUE: CT pulmonary angiogram followed by a CT scan of the abdomen and pelvis with 95 cc of Isovue-370 given intravenously. COMPARISON: CT scan of the abdomen and pelvis dated 11 March 2019. FINDINGS: Chest: Extensive bilateral lobar and segmental pulmonary emboli. Enlargement of the right side of the heart indicating right heart strain. No mediastinal or hilar adenopathy. No axillary adenopathy. The lungs show a 6 mm pulmonary nodule which appears partially calcified in the left lung apex. No other focal pulmonary opacities. No pneumothorax. Abdomen and pelvis: No focal abnormalities identified in the visualized portions of the liver, spleen, pancreas, adrenal glands, and kidneys. No hydronephrosis. No obstructing uroliths. IUD in the uterus. Colonic diverticulosis. The remainder of the GI tract is incompletely distended but shows no gross abnormalities. No retroperitoneal, pelvic sidewall, or mesenteric adenopathy. Atherosclerotic vascular calcifications. Mesh in the anterior abdominal wall. Degenerative changes of the spine. Impression : 1. Extensive bilateral lobar and segmental pulmonary emboli causing right heart strain. 2. No acute abnormalities of the abdomen or pelvis identified. 3. 6 mm pulmonary nodule in the left lung apex may be partially calcified and represent a granuloma. Recommend follow-up chest CT scan in 1 year to document stability.
[2024-08-14 18:52] LABS: Appearance Urine Slightly Cloudy (Clear); Bilirubin Urine Negative (Negative); Blood Urine Negative (Negative); Color Urine Yellow (Yellow); Glucose Urine Negative (Negative); Ketones Urine Negative (Negative); Leukocyte Esterase Urine Negative (Negative); Nitrite Urine Negative (Negative); Protein Urine Trace (Negative); Specific Gravity Urine 1.015 (1.000-1.030); Urobilinogen Urine 0.2 (0.2-1.0); pH Urine 5.5 (5.0-8.5)
[2024-08-14 19:13] LABS: Amorphous Sediment Urine Few; Bacteria Urine Few; RBC Urine 0-2 (0-2); Squamous Epithelial Cell Urine Moderate (None-Few)
[2024-08-14] MEDS: OMEPRAZOLE 20 MG CAPSULE DR 40 MG PO (21:20)
[2024-08-14] MEDS: CYCLOBENZAPRINE HCL 10 MG TABLET PO (21:20)
[2024-08-14] MEDS: cephALEXin 500 MG CAPSULE PO (21:20)
[2024-08-14] MEDS: SODIUM CHLORIDE 0.9 % (FLUSH) 10 ML SYRINGE 5 ML IVF (21:22)
[2024-08-14] MEDS: NYSTATIN POWDER 1 APPLIC TOPICAL (21:22)
[2024-08-14] MEDS: INSULIN GLARGINE,HUM.REC.ANLOG 100 UNIT/ML INSULN.PEN 55 UNIT SUBCUT (21:56)
[2024-08-14] MEDS: ALBUTEROL INHALER 2 PUFF IH (21:56)
[2024-08-14] MEDS: MAG HYDROX/ALUMINUM HYD/SIMETH 30 ML ORAL.SUSP 15 ML PO (23:36)
[2024-08-15 03:00] VITALS: BP 121/78; PULSE 85; RESP 18; TEMP 36.4; O2SAT 94
[2024-08-15] MEDS: LEVOTHYROXINE 50 MCG TABLET PO (06:20)
--- NOTE | 2024-08-15 06:26 | PC.NURSE ---
END OF SHIFT: Pt arrived to the floor at 1920, alert, oriented and vitally stable except for O2. O2 sats remained above 90% on 4L nasal canula. Pt stated ?burning? in the chest area, ?kind of like epigastric pain? prn Maalox given. Pt stated pain under breasts and pannus. Upon inspection, both areas reddened and were open in some places. Staff cleaned and dried the areas, applied nystatin powder. Denies any other pain. Pt SBA to the bedside commode due to shortness of breath, tolerated well. Short of breath with exertion, pt states feeling dizzy when overly exerting self. Pt has chronic dry non-productive cough, states this is not new with this infection (related to asthma). Pt stated feeling improvement towards the end of shift, less short of breath. Pt in bed, appears to be resting, call light within reach.?
[2024-08-15 06:41] LABS: Basophils Absolute Auto 0.02 K/uL (0.00-0.30); Basophils Percent Auto 0.2 % (0.0-3.0); Eosinophils Absolute Auto 0.37 K/uL (0.00-0.50); Eosinophils Percent Auto 3.6 % (0.0-7.0); Hematocrit 41.5 % (33.0-51.0); Hemoglobin* 13.2 gm/dL (12.0-16.0); Immature Granulocytes Abs Auto 0.02 K/uL (0.00-0.30); Immature Granulocytes Pct Auto 0.2 %; Lymphocytes Absolute Auto 2.67 K/uL (0.90-2.90); Lymphocytes Percent Auto 25.8 % (20-44); Mean Corpuscular HGB Conc 32 gm/dL (32-36); Mean Corpuscular Hemoglobin 29 pg (26-34); Mean Corpuscular Volume 91 fL (80-100); Neutrophils Absolute Auto 6.44 K/uL (1.7-7.0); Neutrophils Percent Auto 62.2 % (42.0-72.0); Platelet Count* 211 K/uL (140-440); RDW Coefficient of Variation % 14.2 % (11.5-15.5); Red Blood Count 4.54 m/uL (4.00-5.20); White Blood Count* 10.35 K/uL (4.50-11.00)
[2024-08-15 06:43] LABS: HCO3 VBG 34 mmol/L (21-28); PCO2 VBG 58 mmHG (40-50); PO2 VBG < 30.1 mmHG (25-47); pH VBG 7.374 (7.32-7.43)
[2024-08-15 06:50] LABS: Slide Review Reflex No
[2024-08-15 07:00] VITALS: BP 107/72; PULSE 76; PULSE 77; PULSE 80; RESP 18; RESP 24; TEMP 36; O2SAT 90
[2024-08-15 07:08] LABS: Chloride* 105 mmol/L (96-114)
[2024-08-15 07:09] LABS: Potassium* 4.4 mmol/L (3.6-5.1); Sodium* 143 mmol/L (135-149)
[2024-08-15 07:12] LABS: Anion Gap 6 mEq/L (7-15); Blood Urea Nitrogen* 20 mg/dL (7-30); Calcium* 8.6 mg/dL (8.4-10.6); Carbon Dioxide* 32 mmol/L (20-32); Creatinine* 1.1 mg/dL (0.5-1.5); Estimated Glomerular Filt Rate 56 ml/min; Glucose* 76 mg/dL (60-115)
[2024-08-15 07:32] LABS: Troponin I* 0.06 ng/mL (0.01-0.04)
[2024-08-15 08:48] LABS: Albumin* 3.4 g/dL (3.3-5.0)
[2024-08-15 08:51] LABS: Alanine Aminotransferase* 10 U/L (4-35); Alkaline Phosphatase* 75 U/L (40-150); Aspartate Amino Transferase* 28 U/L (12-35); Bilirubin Direct* 0.3 mg/dL (0.0-0.5); Bilirubin Total* 0.5 mg/dL (0.1-1.5); Total Protein* 6.6 g/dL (6.0-8.3)
[2024-08-15] MEDS: ALBUTEROL INHALER 2 PUFF IH ×2 (09:14→22:10)
[2024-08-15] MEDS: METOPROLOL SUCCINATE (XL) 50 MG TAB PO (09:15)
[2024-08-15] MEDS: OMEPRAZOLE 20 MG CAPSULE DR 40 MG PO ×2 (09:15→22:13)
[2024-08-15] MEDS: APIXABAN 5 MG TABLET 10 MG PO ×2 (09:15→22:12)
[2024-08-15] MEDS: cephALEXin 500 MG CAPSULE PO ×3 (09:15→22:12)
[2024-08-15] MEDS: hydroCHLOROthiazide 25 MG TABLET PO (09:15)
[2024-08-15] MEDS: SERTRALINE 50 MG TABLET PO (09:16)
[2024-08-15] MEDS: INSULIN ASPART 100 UNIT/ML 10 UNIT SUBCUT ×2 (09:16→17:55)
[2024-08-15] MEDS: SODIUM CHLORIDE 0.9 % (FLUSH) 10 ML SYRINGE 5 ML IVF ×2 (09:17→22:14)
--- NOTE | 2024-08-15 09:40 | PM.IMPN1 ---
Assessment and Plan Assessment and plan (1) Hypoxia: Problem comment: - Significant hypoxia. Likely untreated sleep apnea contributing to hypoxia along with acute pulmonary emboli - 08/15 persistent hypoxia, improving. Suspect due to acute PEs along with obesity hypoventilation syndrome and untreated TO. Patient does have compensated hypercapnia on VBG this morning, indicating chronic process such as TO. Wean O2 as able. Status: Acute (2) Pulmonary emboli: Problem comment: - Apparently unprovoked. Primary risk factor appears to be obesity. I discussed possibly doing hypercoagulation panel as outpatient with her PCP as well as keeping up on cancer screening. - Continue therapeutic doses of Eliquis, started last night. - ECHO pending. - Continue supplemental oxygen to keep sats > 90%, weaning as able. - Due to fatigue and hypoxia, I think she should remain inpatient today, possibly able to discharge home tomorrow if off oxygen by then. Status: Acute (3) Morbid obesity: Problem comment: BMI is 72.8 Status: Chronic (4) Epigastric abdominal pain: Problem comment: Described as burning sensation. Cause for this is uncertain, but likely due to GERD since it resolved briefly with GI cocktail. She has been off omeprazole for almost a week, which has likely caused this exacerbation. It was restarted last night, but may take a few days to reach full effect. LFTS okay. Since she improved with GI cocktail, will try H2 jessie for more immediate relief. Consider repeat EGD and/or right upper quadrant ultrasound if symptoms worsening or not improving. Status: Acute (5) Nausea: Problem comment: Patient has recurrent episodes of nausea which she attributes to urinary tract infection. When she feels nausea she gets a UA and it is typically showing infection. Treating the infection does not always resolve her nausea. Status: Acute (6) Recurrent UTI: Problem comment: Patient reports recurrent urinary tract infections. She has not ever had specific urinary symptoms. Last year she did have a fever and was treated for a serious urinary infection. Otherwise her symptom is primarily nausea. Episodes of nausea lead to urinalysis and antibiotic treatment for UTI. This is not reliably resolved the nausea. Continue Keflex for current UTI. Status: Acute (7) TO (obstructive sleep apnea): Problem comment: Intolerant of CPAP Status: Chronic (8) Type 2 diabetes mellitus: Problem comment: - On Trulicity, LA insulin, mealtime insulin - Continue home regimen plus ISS ACHS Status: Chronic Subjective Time Seen by Provider: 08:09 Date Seen: 08/15/24 Interval history: C/o feeling very fatigued. Tarah tells me she has felt this way since she got Norovirus about a week ago. She was in the bathroom so frequently for 5 days that she was unable to take her medications during that time.She has been up to the commode, but not yet up to the BR here yet due to fatigue. She notes SOB has improved with oxygen supplementation. She continues to feel heartburn in the center of her chest; it is unchanged. She says the GI cocktail she had earlier made the burning go away completely for a few hours, but the maalox did nothing. She endorses a history of sleep apnea diagnosed about 5 years ago, but she has been unable to find a mask that works for her, so she has not been wearing CPAP. She tells me she is up to date on cancer screening with mammograms (annually) and colonoscopies (last done 3 years ago, due again in 2026). Exam Narrative: Exam Narrative: General: No acute distress. Awake, alert, oriented x3. Morbidly obese. No pallor. No jaundice. Oropharynx: Clear. Mucous membranes moist. Cardiovascular: Regular rate and rhythm. No murmurs, gallops, or rubs. Respiratory: On supplemental oxygen via nasal cannula. No increased work of breathing. Clear to auscultation bilaterally. No wheezes or crackles. Chest is nontender to palpation. Abdomen: Bowel sounds present. Soft, nondistended, nontender. Extremities: Mild bilateral lymphedema of lower extremities. Const: Vital Signs, click to edit/add: Vital Signs - 24 hr 08/14/24 15:18 08/14/24 15:25 08/14/24 15:29 Temperature 98.7 F Pulse Rate 95 Pulse Rate [Pulse Oximeter] 94 Respiratory Rate 24 Blood Pressure Blood Pressure [Ri ght Arm] Blood Pressure [Ri ght Upper Arm] 115/75 Pulse Oximetry 85 L 90 84 L Oxygen Delivery Me thod Room Air Nasal Cannula Oxygen Flow Rate 4 08/14/24 15:30 08/14/24 15:32 08/14/24 15:45 Temperature Pulse Rate 94 93 91 Pulse Rate [Pulse Oximeter] Respiratory Rate 12 0 L 9 L Blood Pressure 111/63 Blood Pressure [Ri ght Arm] Blood Pressure [Ri ght Upper Arm] Pulse Oximetry 86 L 91 93 Oxygen Delivery Me thod Oxygen Flow Rate 08/14/24 16:00 08/14/24 16:02 08/14/24 16:15 Temperature Pulse Rate 90 89 89 Pulse Rate [Pulse Oximeter] Respiratory Rate 12 19 16 Blood Pressure 96/69 Blood Pressure [Ri ght Arm] Blood Pressure [Ri ght Upper Arm] Pulse Oximetry 93 91 92 Oxygen Delivery Me thod Oxygen Flow Rate 08/14/24 16:30 08/14/24 16:32 08/14/24 17:04 Temperature Pulse Rate 90 91 89 Pulse Rate [Pulse Oximeter] Respiratory Rate 30 H 55 H 20 Blood Pressure 95/67 Blood Pressure [Ri ght Arm] Blood Pressure [Ri ght Upper Arm] Pulse Oximetry 92 90 90 Oxygen Delivery Me thod Nasal Cannula Oxygen Flow Rate 4 08/14/24 17:15 08/14/24 17:30 08/14/24 17:32 Temperature Pulse Rate 84 87 89 Pulse Rate [Pulse Oximeter] Respiratory Rate 28 H 18 17 Blood Pressure 100/63 Blood Pressure [Ri ght Arm] Blood Pressure [Ri ght Upper Arm] Pulse Oximetry 92 94 88 Oxygen Delivery Me thod Oxygen Flow Rate 08/14/24 17:45 08/14/24 18:00 08/14/24 18:02 Temperature Pulse Rate 86 87 86 Pulse Rate [Pulse Oximeter] Respiratory Rate 22 14 19 Blood Pressure 123/82 Blood Pressure [Ri ght Arm] Blood Pressure [Ri ght Upper Arm] Pulse Oximetry 92 94 93 Oxygen Delivery Me thod Oxygen Flow Rate 08/14/24 19:20 08/14/24 19:20 08/14/24 20:40 Temperature 97.6 F Pulse Rate 81 Pulse Rate [Pulse Oximeter] 94 Respiratory Rate 20 20 Blood Pressure Blood Pressure [Ri ght Arm] 120/91 H Blood Pressure [Ri ght Upper Arm] Pulse Oximetry 92 92 Oxygen Delivery Me thod Nasal Cannula Nasal Cannula Oxygen Flow Rate 4 4 08/14/24 23:00 08/14/24 23:00 08/14/24 23:34 Temperature 97.6 F Pulse Rate 81 Pulse Rate [Pulse Oximeter] 84 84 Respiratory Rate 16 16 Blood Pressure Blood Pressure [Ri ght Arm] 97/60 Blood Pressure [Ri ght Upper Arm] Pulse Oximetry 93 Oxygen Delivery Me thod Nasal Cannula Oxygen Flow Rate 4 08/15/24 03:00 08/15/24 07:00 08/15/24 07:00 Temperature 97.6 F 96.8 F L Pulse Rate 76 Pulse Rate [Pulse Oximeter] 85 77 Respiratory Rate 18 18 Blood Pressure Blood Pressure [Ri ght Arm] 121/78 107/72 Blood Pressure [Ri ght Upper Arm] Pulse Oximetry 94 90 Oxygen Delivery Me thod Nasal Cannula Nasal Cannula Oxygen Flow Rate 3 08/15/24 07:00 Temperature Pulse Rate Pulse Rate [Pulse Oximeter] 80 Respiratory Rate 24 Blood Pressure Blood Pressure [Ri ght Arm] Blood Pressure [Ri ght Upper Arm] Pulse Oximetry Oxygen Delivery Me thod Oxygen Flow Rate Labs Labs: Laboratory Results - last 24 hr 08/14/24 08/14/24 08/14/24 15:25 16:25 18:30 WBC 10.59 RBC 4.77 Hgb 13.6 Hct 43.0 MCV 90 MCH 29 MCHC 32 RDW Coeff of Jayna 14.0 Plt Count 188 Neut % (Auto) 77.8 H Lymph % (Auto) 13.9 L [place] % (Auto) 6.1 Eos % (Auto) 1.9 Baso % (Auto) 0.1 Neut # (Auto) 8.20 H Lymph # (Auto) 1.50 [place] # (Auto) 0.60 Eos # (Auto) 0.20 Baso # (Auto) 0.01 Abs Immat Gran (auto) 0.02 Imm/Tot Granulo (auto) 0.2 VBG pH 7.392 VBG pCO2 47 VBG pO2 31.8 VBG HCO3 28 Sodium 140 Potassium 4.5 Chloride 104 Carbon Dioxide 27 Anion Gap 9 BUN 23 Creatinine 1.2 Estimated Creat Clear 41.44 Estimated GFR 51 Glucose 203 H Lactate 1.9 Calcium 8.5 Total Bilirubin 0.5 Direct Bilirubin AST 26 ALT 15 Alkaline Phosphatase 88 Troponin I 0.06 H* NT-Pro-B Natriuret Pep 7350 Total Protein 6.9 Albumin 3.6 Lipase 90 Urine Color Yellow Urine Appearance Slightly Cloudy A Urine pH 5.5 Ur Specific [place] 1.015 Urine Protein Trace A Urine Glucose (UA) Negative Urine Ketones Negative Urine Blood Negative Urine Nitrite Negative Urine Bilirubin Negative Urine Urobilinogen 0.2 Ur Leukocyte Esterase Negative Urine RBC 0-2 Urine WBC 2-5 Ur Squamous Epith Cells Moderate A Amorphous Sediment Few A Urine Bacteria Few A SARS-CoV-2 (PCR) Negative SARS-CoV-2 Influenza Type A (PCR) Negative PCR FLU A Influenza Type B (PCR) Negative PCR FLU B RSV (PCR) Negative PCR RSV Lab Acknowledgement 08/15/24 08/15/24 06:00 08:27 WBC 10.35 RBC 4.54 Hgb 13.2 Hct 41.5 MCV 91 MCH 29 MCHC 32 RDW Coeff of Jayna 14.2 Plt Count 211 Neut % (Auto) 62.2 Lymph % (Auto) 25.8 [place] % (Auto) 8.0 Eos % (Auto) 3.6 Baso % (Auto) 0.2 Neut # (Auto) 6.44 Lymph # (Auto) 2.67 [place] # (Auto) 0.80 Eos # (Auto) 0.37 Baso # (Auto) 0.02 Abs Immat Gran (auto) 0.02 Imm/Tot Granulo (auto) 0.2 VBG pH 7.374 VBG pCO2 58 H VBG pO2 < 30.1 VBG HCO3 34 H Sodium 143 Potassium 4.4 Chloride 105 Carbon Dioxide 32 Anion Gap 6 L BUN 20 Creatinine 1.1 Estimated Creat Clear 45.20 Estimated GFR 56 Glucose 76 Lactate Calcium 8.6 Total Bilirubin 0.5 Direct Bilirubin 0.3 AST 28 ALT 10 Alkaline Phosphatase 75 Troponin I 0.06 H* NT-Pro-B Natriuret Pep Total Protein 6.6 Albumin 3.4 Lipase Urine Color Urine Appearance Urine pH Ur Specific [place] Urine Protein Urine Glucose (UA) Urine Ketones Urine Blood Urine Nitrite Urine Bilirubin Urine Urobilinogen Ur Leukocyte Esterase Urine RBC Urine WBC Ur Squamous Epith Cells Amorphous Sediment Urine Bacteria SARS-CoV-2 (PCR) Influenza Type A (PCR) Influenza Type B (PCR) RSV (PCR) Lab Acknowledgement Test Added Ordering Physician: David Palomo M.D. Date of Service: 08/14/24 Procedure(s): US venous LE BI Accession Number(s): [id number] cc: Antonette James M.D.; David Palomo M.D.~ For Patients: As a result of the Cures Act, medical imaging exams and procedure reports are released immediately into your electronic medical record. You may view this report before your referring provider. If you have questions, please contact your health care provider. INDICATION: Pulmonary emboli, evaluate for DVT. TECHNIQUE: Ultrasound venous duplex bilateral lower extremity. Compression venous exam was performed using holbrook-scale, color Doppler, and spectral Doppler analysis. COMPARISON: None. FINDINGS: Deep veins: Sonographic imaging demonstrates the bilateral common femoral, deep femoral, superficial femoral, popliteal, peroneal, and posterior tibial veins to be fully compressible with normal color Doppler blood flow. Superficial veins: Greater saphenous veins are fully compressible. No popliteal cyst. IMPRESSION: No evidence of deep venous thrombosis within the evaluated veins of the bilateral lower extremities. Dictated by David Way MD @ 08/14/2024 8:01:38 PM (Electronically Signed)
[2024-08-15 11:00] VITALS: BP 101/62; PULSE 80; RESP 24; TEMP 36; O2SAT 93
[2024-08-15] MEDS: PERFLUTREN LIPID MICROSPHERES 2 ML VIAL IVP (11:37)
[2024-08-15] MEDS: MAG HYDROX/ALUMINUM HYD/SIMETH 30 ML ORAL.SUSP 15 ML PO (13:10)
[2024-08-15] MEDS: ONDANSETRON ODT 4 MG TAB PO (13:10)
[2024-08-15] MEDS: NYSTATIN POWDER 1 APPLIC TOPICAL ×2 (13:13→22:17)
[2024-08-15 15:00] VITALS: BP 109/67; PULSE 78; PULSE 79; RESP 18; TEMP 36.6; O2SAT 91
--- NOTE | 2024-08-15 15:52 | PC.NURSE ---
Pt continues to require 2-3L/O2 via NC at rest and 4-5L/O2 with activity. She is visibly SOB with exertion and desaturates to 87%. Rebounds fairly quickly at rest to 90%. C/o nausea this afternoon, PRN zofran given.
[2024-08-15] MEDS: SIMVASTATIN 10 MG TABLET PO (17:57)
[2024-08-15 19:00] VITALS: BP 95/64; PULSE 79; RESP 20; TEMP 36.1; O2SAT 93
[2024-08-15] MEDS: INSULIN GLARGINE,HUM.REC.ANLOG 100 UNIT/ML INSULN.PEN 55 UNIT SUBCUT (22:16)
[2024-08-15] MEDS: FLUTICASONE PROPIONATE NASAL 2 SPRAY NOSTRIL-B (22:19)
[2024-08-15 23:00] VITALS: PULSE 75; PULSE 79; RESP 20
[2024-08-16] VITALS (17 sets, daily range): BP systolic 103–165; BP diastolic 60–93; PULSE 76–85; RESP 16–22; TEMP 36.5–36.9; O2SAT 87–99
[2024-08-16] MEDS: LEVOTHYROXINE 50 MCG TABLET PO (06:16)
[2024-08-16] MEDS: ONDANSETRON ODT 4 MG TAB PO (06:17)
--- NOTE | 2024-08-16 06:39 | PC.NURSE ---
Pt alert, oriented and vitally stable except for O2. O2 sats remained above 90% on 5L oxy mask throughout shift. Pt stated pain under breasts and pannus. Upon inspection, both areas reddened and were open in some places. Staff cleaned and dried the areas, applied nystatin powder. Denies any other pain. Pt SBA-independent?to?bathroom, short of breath with exertion, pt states feeling dizzy when overly exerting self. Pt takes O2 with. Pt self-measuring blood glucose device alarmed pt of BG of 69, orange juice and crackers given, reassessed, BG at 137. Pt in bed, appears to be resting, call light within reach.?
[2024-08-16 06:47] LABS: Basophils Absolute Auto 0.05 K/uL (0.00-0.30); Basophils Percent Auto 0.5 % (0.0-3.0); Eosinophils Absolute Auto 0.39 K/uL (0.00-0.50); Eosinophils Percent Auto 3.8 % (0.0-7.0); Hematocrit 44.9 % (33.0-51.0); Hemoglobin* 14.2 gm/dL (12.0-16.0); Immature Granulocytes Abs Auto 0.02 K/uL (0.00-0.30); Immature Granulocytes Pct Auto 0.2 %; Lymphocytes Absolute Auto 2.88 K/uL (0.90-2.90); Lymphocytes Percent Auto 28.2 % (20-44); Mean Corpuscular HGB Conc 32 gm/dL (32-36); Mean Corpuscular Hemoglobin 29 pg (26-34); Mean Corpuscular Volume 91 fL (80-100); Monocytes Percent Auto 7.6 % (0.0-11.0); Neutrophils Absolute Auto 6.08 K/uL (1.7-7.0); Neutrophils Percent Auto 59.7 % (42.0-72.0); Platelet Count* 231 K/uL (140-440); RDW Coefficient of Variation % 14.4 % (11.5-15.5); Red Blood Count 4.92 m/uL (4.00-5.20)
[2024-08-16 06:56] LABS: Slide Review Reflex No
[2024-08-16] MEDS: APIXABAN 5 MG TABLET 10 MG PO ×2 (08:57→20:31)
[2024-08-16] MEDS: OMEPRAZOLE 20 MG CAPSULE DR 40 MG PO ×2 (08:57→17:14)
[2024-08-16] MEDS: FUROSEMIDE 10 MG/ML inj 40 MG IVP (08:58)
[2024-08-16] MEDS: SERTRALINE 50 MG TABLET 100 MG PO (08:58)
[2024-08-16] MEDS: ALBUTEROL INHALER 2 PUFF IH ×2 (08:59→20:32)
[2024-08-16] MEDS: FLUTICASONE PROPIONATE NASAL 2 SPRAY NOSTRIL-B (08:59)
[2024-08-16] MEDS: INSULIN ASPART 100 UNIT/ML 10 UNIT SUBCUT (09:01)
[2024-08-16] MEDS: cephALEXin 500 MG CAPSULE PO ×3 (09:53→20:31)
[2024-08-16] MEDS: hydroCHLOROthiazide 25 MG TABLET PO (09:53)
[2024-08-16] MEDS: NYSTATIN POWDER 1 APPLIC TOPICAL ×2 (09:54→20:47)
--- NOTE | 2024-08-16 10:13 | RESP.RT ---
Pt seen sitting at side of bed. She looks better today vs on Sat in the ED. Less short of breath, and more conversational. BBS Clear. SPO2 94& on 4L. PT able to IS for over 2L. PT reports getting lasix. Plan to have up and sitting in chair and ambulating in room today. Goal to decrease oxygen as tolerates.
--- NOTE | 2024-08-16 14:31 | P.IMPN_ITS ---
Assessment and Plan Assessment and plan (1) Hypoxia: Problem comment: - Significant hypoxia. Likely untreated sleep apnea contributing to hypoxia along with acute pulmonary emboli - 08/15 persistent hypoxia, improving. Suspect due to acute PEs along with obesity hypoventilation syndrome and untreated TO. Patient does have compensated hypercapnia on VBG this morning, indicating chronic process such as TO. Wean O2 as able. - 08/16 Patient has h/o diagnosed obesity hypoventilation syndrome and known untreated TO, which are likely complicating treatment. RT to see patient today. Use O2 cautiously overnight. Recheck VBG in am. Status: Acute (2) Pulmonary emboli: Problem comment: - Apparently unprovoked. Primary risk factor appears to be obesity. I discussed possibly doing hypercoagulation panel as outpatient with her PCP as well as keeping up on cancer screening. - Continue therapeutic doses of Eliquis, started last night. - ECHO pending. - Continue supplemental oxygen to keep sats > 90%, weaning as able. - 08/16 Due to persistent fatigue and hypoxia requiring >3LPM oxygen supplementation, I think she should remain inpatient today. Status: Acute (3) Morbid obesity: Problem comment: BMI is 72.8 Status: Chronic (4) Epigastric abdominal pain: Problem comment: Described as burning sensation. Cause for this is uncertain, but likely due to GERD since it resolved briefly with GI cocktail. She has been off omeprazole for almost a week, which has likely caused this exacerbation. It was restarted last night, but may take a few days to reach full effect. LFTS okay. Since she improved with GI cocktail, will try H2 jessie for more immediate relief. Consider repeat EGD and/or right upper quadrant ultrasound if symptoms worsening or not improving. - 08/16 Obtain RUQ US today for nausea. EGD was 3 years ago, according to patient. Status: Acute (5) Nausea: Problem comment: Patient has recurrent episodes of nausea which she attributes to urinary tract infection. When she feels nausea she gets a UA and it is typically showing infection. Treating the infection does not always resolve her nausea. - 08/16 Possibly due to antibiotics. Obtain RUQ US today Status: Acute (6) Recurrent UTI: Problem comment: Patient reports recurrent urinary tract infections. She has not ever had specific urinary symptoms. Last year she did have a fever and was treated for a serious urinary infection. Otherwise her symptom is primarily nausea. Episodes of nausea lead to urinalysis and antibiotic treatment for UTI. This is not reliably resolved the nausea. Continue Keflex for current UTI. Status: Acute (7) TO (obstructive sleep apnea): Problem comment: Intolerant of CPAP Status: Chronic (8) Type 2 diabetes mellitus: Problem comment: - On Trulicity, LA insulin, mealtime insulin - 08/16 POC glucoses are 69-142. Continue home regimen plus ISS ACHS Status: Chronic Subjective Time Seen by Provider: 07:58 Date Seen: 08/16/24 Interval history: Tarah c/o constant nausea. She's had this chronically, but it has been worse since she got a stomach bug over a week ago. Additionally she complains that she remains fatigued and SOB with exertion. Exam Narrative: Exam Narrative: General: No acute distress. Awake, alert, oriented. Morbidly obese. No pallor. No jaundice. Cardiovascular: Regular rate and rhythm. No murmurs, gallops, or rubs. Respiratory: On supplemental oxygen via oxymask. No increased work of breathing. Clear to auscultation bilaterally. No wheezes or crackles. Chest is nontender to palpation. Abdomen: Bowel sounds present. Soft, nondistended, nontender. Const: Vital Signs, click to edit/add: Vital Signs - 24 hr 08/15/24 15:00 08/15/24 15:00 08/15/24 15:00 Temperature 97.8 F Pulse Rate 78 Pulse Rate [Pulse Oximeter] 79 79 Respiratory Rate 18 18 Blood Pressure [Ri t Arm] 109/67 Pulse Oximetry 91 Oxygen Delivery Me thod Nasal Cannula Oxygen Flow Rate 3 08/15/24 19:00 08/15/24 23:00 08/15/24 23:00 Temperature 97.0 F L Pulse Rate 75 Pulse Rate [Pulse Oximeter] 79 79 Respiratory Rate 20 20 Blood Pressure [Ri t Arm] 95/64 Pulse Oximetry 93 Oxygen Delivery Me thod OxyMask Oxygen Flow Rate 5 08/16/24 00:56 08/16/24 03:00 08/16/24 07:00 Temperature 97.9 F Pulse Rate 76 Pulse Rate [Pulse Oximeter] 79 78 Respiratory Rate 20 16 Blood Pressure [Ri t Arm] 165/93 H Pulse Oximetry 99 95 Oxygen Delivery Me thod OxyMask OxyMask Oxygen Flow Rate 5 5 08/16/24 08:00 08/16/24 08:30 08/16/24 09:30 Temperature 98.3 F Pulse Rate Pulse Rate [Pulse Oximeter] 79 79 Respiratory Rate 20 18 20 [facility] 103/67 Pulse Oximetry 90 90 Oxygen Delivery Me thod Nasal Cannula Nasal Cannula Oxygen Flow Rate 2.5 3 08/16/24 11:00 08/16/24 11:30 08/16/24 11:35 Temperature 98.4 F Pulse Rate Pulse Rate [Pulse Oximeter] 84 Respiratory Rate 22 Blood Pressure [[facility]] 129/78 Pulse Oximetry 92 87 L 90 Oxygen Delivery Me thod Nasal Cannula Nasal Cannula Oxygen Flow Rate 4 3 3.5 08/16/24 13:10 08/16/24 13:16 Temperature Pulse Rate Pulse Rate [Pulse Oximeter] Respiratory Rate Blood Pressure [[facility] Arm] Pulse Oximetry 87 L 93 Oxygen Delivery Me thod Nasal Cannula Nasal Cannula Oxygen Flow Rate 3.5 4 Labs Labs: Laboratory Results - last 24 hr 08/16/24 06:22 WBC 10.20 RBC 4.92 Hgb 14.2 Hct 44.9 MCV 91 MCH 29 MCHC 32 RDW Coeff of Jayna 14.4 Plt Count 231 Neut % (Auto) 59.7 Lymph % (Auto) 28.2 [place] % (Auto) 7.6 Eos % (Auto) 3.8 Baso % (Auto) 0.5 Neut # (Auto) 6.08 Lymph # (Auto) 2.88 [place] # (Auto) 0.80 Eos # (Auto) 0.39 Baso # (Auto) 0.05 Abs Immat Gran (auto) 0.02 Imm/Tot Granulo (auto) 0.2
[2024-08-16] MEDS: SODIUM CHLORIDE 0.9 % (FLUSH) 10 ML SYRINGE 5 ML IVF ×2 (15:20→20:34)
--- NOTE | 2024-08-16 16:00 | CRLHL7_ITS ---
For Patients: As a result of the Century Cures Act, medical imaging exams and procedure reports are released immediately into your electronic medical record. You may view this report before your referring provider. If you have questions, please contact your health care provider. Indication: nausea, heartburn Technique: Multiple transverse and longitudinal sonographic grayscale images of the right upper quadrant of the abdomen were obtained, supplemented with color, power, and spectral Doppler imaging. Comparison: 08/14/2024. Findings: Slightly suboptimal examination secondary to habitus. Pancreas: Visualized portions normal. Liver length: 15.4 cm. Liver appearance: Normal. No biliary ductal dilation. Portal vein: Patent, hepatopetal flow. CBD: 0.5 cm. Gallbladder: Negative sonographic Rosales sign. Possible sludge. Right kidney length: 12.5 cm. Right kidney appearance: Normal. Impression: 1. Slightly suboptimal examination secondary to habitus. 2. Possible gallbladder sludge without sonographic evidence of acute cholecystitis. Dictated by Memo Mcdermott MD @ 08/16/2024 5:49:37 PM (Electronically Signed)
[2024-08-16] MEDS: INSULIN ASPART 100 UNIT/ML 6 UNIT SUBCUT (17:15)
[2024-08-16] MEDS: SIMVASTATIN 10 MG TABLET PO (17:15)
--- NOTE | 2024-08-16 18:35 | PC.NURSE ---
End of Shift: Pt's dyspnea remains with exertion, but states that it has improved and it does not feel like I'm breathing underwater anymore. Held scheduled metoprolol due to WNL BP per MD. Pt still requires oxygen at baseline and increased oxygen with activity. Pt tolerating regular diet, and reports no pain. Ambulating independently in room. Pt continues to have irritated skin on pannus, under breasts, and on left side. Pt able to apply nystatin for self. Call light within reach and calls appropriately. --Cem Hickman, Student Nurse
[2024-08-16] MEDS: INSULIN ASPART 100 UNIT/ML SUBCUT (20:40)
[2024-08-16] MEDS: INSULIN GLARGINE,HUM.REC.ANLOG 100 UNIT/ML INSULN.PEN 40 UNIT SUBCUT (20:42)
[2024-08-17 02:07] VITALS: BP 100/51; PULSE 83; RESP 18; TEMP 36.6; O2SAT 92
[2024-08-17] MEDS: LEVOTHYROXINE 50 MCG TABLET PO (06:07)
[2024-08-17] MEDS: OMEPRAZOLE 20 MG CAPSULE DR 40 MG PO (06:07)
[2024-08-17 06:20] LABS: HCO3 VBG 33 mmol/L (21-28); PCO2 VBG 54 mmHG (40-50); PO2 VBG 30.1 mmHG (25-47); pH VBG 7.399 (7.32-7.43)
[2024-08-17 06:21] LABS: Basophils Absolute Auto 0.04 K/uL (0.00-0.30); Basophils Percent Auto 0.5 % (0.0-3.0); Eosinophils Absolute Auto 0.39 K/uL (0.00-0.50); Eosinophils Percent Auto 4.6 % (0.0-7.0); Hematocrit 42.3 % (33.0-51.0); Hemoglobin* 13.6 gm/dL (12.0-16.0); Immature Granulocytes Abs Auto 0.06 K/uL (0.00-0.30); Immature Granulocytes Pct Auto 0.7 %; Lymphocytes Absolute Auto 2.38 K/uL (0.90-2.90); Lymphocytes Percent Auto 28.1 % (20-44); Mean Corpuscular HGB Conc 32 gm/dL (32-36); Mean Corpuscular Hemoglobin 29 pg (26-34); Mean Corpuscular Volume 90 fL (80-100); Monocytes Percent Auto 7.1 % (0.0-11.0); Neutrophils Absolute Auto 5.01 K/uL (1.7-7.0); Platelet Count* 224 K/uL (140-440); Red Blood Count 4.71 m/uL (4.00-5.20); White Blood Count* 8.48 K/uL (4.50-11.00)
[2024-08-17 06:25] LABS: Slide Review Reflex No
[2024-08-17 06:40] LABS: Chloride* 101 mmol/L (96-114)
[2024-08-17 06:41] LABS: Potassium* 4.3 mmol/L (3.6-5.1); Sodium* 139 mmol/L (135-149)
[2024-08-17 06:43] LABS: Blood Urea Nitrogen* 22 mg/dL (7-30); Creatinine* 1.1 mg/dL (0.5-1.5); Estimated Glomerular Filt Rate 56 ml/min
[2024-08-17 06:44] LABS: Anion Gap 5 mEq/L (7-15); Calcium* 8.8 mg/dL (8.4-10.6); Carbon Dioxide* 33 mmol/L (20-32); Glucose* 103 mg/dL (60-115)
[2024-08-17 07:00] VITALS: PULSE 82
--- NOTE | 2024-08-17 07:26 | PC.NURSE ---
End of shift report [id number]: VSS. Afebrile. Remains on 3 L O2 via NC to keep O2 sats above 88 per order overnight. Denies pain and nausea. Pt reports feeling improvement in her SOB with exertion. Ambulates ind in room. Call light within reach.?
[2024-08-17 09:00] VITALS: BP 117/97; PULSE 87; RESP 22; TEMP 36.6; O2SAT 92
[2024-08-17] MEDS: APIXABAN 5 MG TABLET 10 MG PO (09:32)
[2024-08-17] MEDS: NYSTATIN POWDER 1 APPLIC TOPICAL (09:33)
[2024-08-17] MEDS: SERTRALINE 50 MG TABLET 100 MG PO (09:33)
[2024-08-17] MEDS: cephALEXin 500 MG CAPSULE PO ×2 (09:33→13:15)
[2024-08-17] MEDS: hydroCHLOROthiazide 25 MG TABLET PO (09:33)
[2024-08-17] MEDS: ALBUTEROL INHALER 2 PUFF IH (09:36)
[2024-08-17] MEDS: INSULIN ASPART 100 UNIT/ML 6 UNIT SUBCUT (09:36)
[2024-08-17] MEDS: FLUTICASONE PROPIONATE NASAL 2 SPRAY NOSTRIL-B (09:36)
[2024-08-17 10:04] VITALS: O2SAT 80; O2SAT 89; O2SAT 92
--- NOTE | 2024-08-17 10:12 | PM.DS1 ---
DS: Providers Provider Time Seen by Provider: 07:55 Date Seen: 08/17/24 Date of admission: 08/14/24 19:57 Primary care physician: Antonette James MD Admitting Clinician: Stefan Downs MD Consults: 08/14/24 19:57 Consult to Respiratory Therapy [CONS] Routine Comment: Reason(s) for RT Consult:: Consult Attending Physician on discharge: Adelaida Cancino MD Date of Discharge: 08/17/24 DS: Diagnosis Discharge Diagnosis (1) Hypoxia: Status: Acute Problem details: - Significant hypoxia. Likely untreated sleep apnea contributing to hypoxia along with acute pulmonary emboli - 08/15 persistent hypoxia, improving. Suspect due to acute PEs along with obesity hypoventilation syndrome and untreated TO. Patient does have compensated hypercapnia on VBG this morning, indicating chronic process such as TO. Wean O2 as able. - 08/16 Patient has h/o diagnosed obesity hypoventilation syndrome and known untreated TO, which are likely complicating treatment. RT to see patient today. Use O2 cautiously overnight. Recheck VBG in am. - 08/17 Hypoxia improving. Now on 2LPM NC. Ambulatory O2 study complete today. Feeling better. D/ch home. Recommend referral back to Dr. Carrera, pulmonology. (2) Pulmonary emboli: Status: Acute Problem details: - Apparently unprovoked. Primary risk factor appears to be obesity. I discussed possibly doing hypercoagulation panel as outpatient with her PCP as well as keeping up on cancer screening. - Continue therapeutic doses of Eliquis, started last night. - ECHO pending. - Continue supplemental oxygen to keep sats > 90%, weaning as able. - 08/16 Due to persistent fatigue and hypoxia requiring >3LPM oxygen supplementation, I think she should remain inpatient today. - 08/17 feeling less SOB and fatigued. D/ch home on eliquis, VTE dosing. (3) Morbid obesity: Status: Chronic Problem details: BMI is 72.8 (4) Epigastric abdominal pain: Status: Resolved Problem details: Described as burning sensation. Cause for this is uncertain, but likely due to GERD since it resolved briefly with GI cocktail. She has been off omeprazole for almost a week, which has likely caused this exacerbation. It was restarted last night, but may take a few days to reach full effect. LFTS okay. Since she improved with GI cocktail, will try H2 jessie for more immediate relief. Consider repeat EGD and/or right upper quadrant ultrasound if symptoms worsening or not improving. - 08/16 Obtain RUQ US today for nausea. EGD was 3 years ago, according to patient. - 08/17 RUQ US unremarkable. Nausea resolved. (5) Nausea: Status: Resolved Problem details: Patient has recurrent episodes of nausea which she attributes to urinary tract infection. When she feels nausea she gets a UA and it is typically showing infection. Treating the infection does not always resolve her nausea. - 08/16 Possibly due to antibiotics. Obtain RUQ US today - 08/17 Resolved. (6) Recurrent UTI: Status: Acute Problem details: Patient reports recurrent urinary tract infections. She has not ever had specific urinary symptoms. Last year she did have a fever and was treated for a serious urinary infection. Otherwise her symptom is primarily nausea. Episodes of nausea lead to urinalysis and antibiotic treatment for UTI. This is not reliably resolved the nausea. Continue Keflex for current UTI. Has completed 3 days of keflex for UTI. (7) TO (obstructive sleep apnea): Status: Chronic Problem details: Intolerant of CPAP - Recommend outpatient referral back to Dr. Carrera, pulmonology; try CPAP again. (8) Type 2 diabetes mellitus: Status: Chronic Problem details: - On Trulicity, LA insulin, mealtime insulin - 08/16 POC glucoses are 69-142. Continue home regimen plus ISS ACHS (9) Pulmonary hypertension: Status: Suspected Problem details: - Recommend referral back to Dr. Carrera, pulmonology. (10) Pulmonary nodule: Status: Acute Problem details: Incidental pulmonary nodule was found in the left lung apex on CT and is recommended that she have follow-up chest CT scan in 1 year to document stability. DS: Summary Hospital Course Hospital Course: This is a 64-year-old female with a history of sleep apnea, obesity hypoventilation syndrome, BMI of 72, type 2 diabetes mellitus, GERD, who presented through the emergency department with concerns of chest pain, generalized abdominal burning pain, shortness of breath, dyspnea on exertion, and recent UTI. She stated that she had been sick for about 7 days with the stomach bug and was in the bathroom so much with vomiting that she did not take her medicines for about 5 days. These included medications for blood pressure and GERD since then she has just not felt well and developed worsening shortness of breath and chest pain. She was found to have significant hypoxia and apparently unprovoked, extensive bilateral lobar pulmonary emboli causing right heart strain. Although blood pressures were low normal, she was not hypotensive. She was admitted and started on treatment with Eliquis, VTE dosing. Due to persistent nausea she had a right upper quadrant ultrasound that was unremarkable. She got one dose of IV furosemide yesterday. She is feeling better today and hypoxia is improving. She has missed charged home in improved condition. Please see above for specific details of her hospital stay and course. Note to PCP: Incidental pulmonary nodule was found in the left lung apex on CT and is recommended that she have follow-up chest CT scan in 1 year to document stability. Time Spent with Patient Time attestation: Total time spent providing and/or coordinating discharge services: Today I spent 40 minutes discharging the patient, reviewing Expanse and EPIC notes/diagnostics/labs, discussing the care plan with our care team that includes social work, PT/OT, pharmacy, RT, residential and documenting my impressions and plan in the medical record. Exam Narrative: Exam Narrative: General: No acute distress. Awake, alert, oriented. Morbidly obese. No pallor. No jaundice. Cardiovascular: Regular rate and rhythm. No murmurs, gallops, or rubs. Respiratory: On supplemental oxygen via nasal cannula. No increased work of breathing. Clear to auscultation bilaterally. No wheezes or crackles. Const: Vital Signs, click to edit/add: Vital Signs - 24 hr 08/16/24 11:00 08/16/24 11:30 08/16/24 11:35 Temperature 98.4 F Pulse Rate Pulse Rate [Pulse Oximeter] 84 Respiratory Rate 22 Blood Pressure [Ri ght Arm] 129/78 Pulse Oximetry 92 87 L 90 Oxygen Delivery Me thod Nasal Cannula Nasal Cannula Oxygen Flow Rate 4 3 3.5 08/16/24 13:10 08/16/24 13:16 08/16/24 15:00 Temperature 97.8 F Pulse Rate Pulse Rate [Pulse Oximeter] 85 Respiratory Rate 20 Blood Pressure [Ri ght Arm] 129/73 Pulse Oximetry 87 L 93 92 Oxygen Delivery Me thod Nasal Cannula Nasal Cannula Nasal Cannula Oxygen Flow Rate 3.5 4 3 08/16/24 15:00 08/16/24 19:00 08/16/24 21:43 Temperature 97.8 F Pulse Rate Pulse Rate [Pulse Oximeter] 83 83 Respiratory Rate 20 20 Blood Pressure [Ri ght Arm] 112/60 Pulse Oximetry 93 92 Oxygen Delivery Me thod Nasal Cannula Nasal Cannula Oxygen Flow Rate 3 3 08/16/24 22:28 08/16/24 23:00 08/16/24 23:15 Temperature 97.7 F Pulse Rate 84 Pulse Rate [Pulse Oximeter] 80 Respiratory Rate 20 Blood Pressure [Ri ght Arm] 108/85 Pulse Oximetry 89 89 Oxygen Delivery Me thod Nasal Cannula Nasal Cannula Oxygen Flow Rate 3 3 08/17/24 02:07 08/17/24 07:00 08/17/24 09:00 Temperature 98 F Pulse Rate 82 Pulse Rate [Pulse Oximeter] 83 Respiratory Rate 18 22 Blood Pressure [Ri ght Arm] 100/51 L Pulse Oximetry 92 Oxygen Delivery Me thod Nasal Cannula Oxygen Flow Rate 3 08/17/24 09:00 08/17/24 09:00 Temperature 97.8 F Pulse Rate Pulse Rate [Pulse Oximeter] 87 Respiratory Rate 22 22 Blood Pressure [Ri ght Arm] 117/97 H Pulse Oximetry 92 92 Oxygen Delivery Me thod Nasal Cannula Nasal Cannula Oxygen Flow Rate 2 2 DS: Data Data Completed and Pending Completed studies during hospitalization: 08/14/2024 EKG: Normal sinus rhythm, 88 beats per minute, low-voltage QRS, cannot rule out anterior infarct, age undetermined. 08/15/2024 echocardiogram: Technically limited exam. Normal left ventricular size, mildly increased wall thickness, normal global systolic function, calculated EF of 69%. Systolic flattening of the septum consistent with right ventricular volume overload. Right ventricular cavity size is moderately enlarged, global systolic RV function is normal. Moderately increased estimated pulmonary pressures by tricuspid regurgitation velocity and right atrial pressure (43 mm Hg plus RAP). Ordering Physician: David Palomo M.D. Date of Service: 08/14/24 Procedure(s): CT abdomen pelvis w con Accession Number(s): [id number] cc: Antonette James M.D.; David Palomo M.D.~ For Patients: As a result of the Century Cures Act, medical imaging exams and procedure reports are released immediately into your electronic medical record. You may view this report before your referring provider. If you have questions, please contact your health care provider. INDICATION: Shortness of breath. Chest pain. Abdominal pain. TECHNIQUE: CT pulmonary angiogram followed by a CT scan of the abdomen and pelvis with 95 cc of Isovue-370 given intravenously. COMPARISON: CT scan of the abdomen and pelvis dated 11 March 2019. FINDINGS: Chest: Extensive bilateral lobar and segmental pulmonary emboli. Enlargement of the right side of the heart indicating right heart strain. No mediastinal or hilar adenopathy. No axillary adenopathy. The lungs show a 6 mm pulmonary nodule which appears partially calcified in the left lung apex. No other focal pulmonary opacities. No pneumothorax. Abdomen and pelvis: No focal abnormalities identified in the visualized portions of the liver, spleen, pancreas, adrenal glands, and kidneys. No hydronephrosis. No obstructing uroliths. IUD in the uterus. Colonic diverticulosis. The remainder of the GI tract is incompletely distended but shows no gross abnormalities. No retroperitoneal, pelvic sidewall, or mesenteric adenopathy. Atherosclerotic vascular calcifications. Mesh in the anterior abdominal wall. Degenerative changes of the spine. Impression : 1. Extensive bilateral lobar and segmental pulmonary emboli causing right heart strain. 2. No acute abnormalities of the abdomen or pelvis identified. 3. 6 mm pulmonary nodule in the left lung apex may be partially calcified and represent a granuloma. Recommend follow-up chest CT scan in 1 year to document stability. Note: Findings discussed with and acknowledged by Dr. Palomo on 14 August 2024 at 1740 hours. Dictated by Ovidio Adams MD @ 08/14/2024 5:42:25 PM Please note that all CT scans at this facility use dose modulation, iterative reconstruction, and/or weight-based dosing when appropriate to reduce radiation dose to as low as reasonably achievable. Dictated by: Ovidio Adams MD @ 08/14/2024 17:42:39 (Electronically Signed) Ordering Physician: David Palomo M.D. Date of Service: 08/14/24 Procedure(s): CT angio chest PE protocol Accession Number(s): [id number] cc: Antonette James M.D.; David Palomo M.D.~ For Patients: As a result of the Century Cures Act, medical imaging exams and procedure reports are released immediately into your electronic medical record. You may view this report before your referring provider. If you have questions, please contact your health care provider. INDICATION: Shortness of breath. Chest pain. Abdominal pain. TECHNIQUE: CT pulmonary angiogram followed by a CT scan of the abdomen and pelvis with 95 cc of Isovue-370 given intravenously. COMPARISON: CT scan of the abdomen and pelvis dated 11 March 2019. FINDINGS: Chest: Extensive bilateral lobar and segmental pulmonary emboli. Enlargement of the right side of the heart indicating right heart strain. No mediastinal or hilar adenopathy. No axillary adenopathy. The lungs show a 6 mm pulmonary nodule which appears partially calcified in the left lung apex. No other focal pulmonary opacities. No pneumothorax. Abdomen and pelvis: No focal abnormalities identified in the visualized portions of the liver, spleen, pancreas, adrenal glands, and kidneys. No hydronephrosis. No obstructing uroliths. IUD in the uterus. Colonic diverticulosis. The remainder of the GI tract is incompletely distended but shows no gross abnormalities. No retroperitoneal, pelvic sidewall, or mesenteric adenopathy. Atherosclerotic vascular calcifications. Mesh in the anterior abdominal wall. Degenerative changes of the spine. Impression : 1. Extensive bilateral lobar and segmental pulmonary emboli causing right heart strain. 2. No acute abnormalities of the abdomen or pelvis identified. 3. 6 mm pulmonary nodule in the left lung apex may be partially calcified and represent a granuloma. Recommend follow-up chest CT scan in 1 year to document stability. Note: Findings discussed with and acknowledged by Dr. Palomo on 14 August 2024 at 1740 hours. Dictated by Ovidio Adams MD @ 08/14/2024 5:41:30 PM Please note that all CT scans at this facility use dose modulation, iterative reconstruction, and/or weight-based dosing when appropriate to reduce radiation dose to as low as reasonably achievable. Dictated by: Ovidio Adams MD @ 08/14/2024 17:41:40 (Electronically Signed) Ordering Physician: David Palomo M.D. Date of Service: 08/14/24 Procedure(s): US venous LE BI Accession Number(s): [id number] cc: Antonette James M.D.; David Palomo M.D.~ For Patients: As a result of the 21st Century Cures Act, medical imaging exams and procedure reports are released immediately into your electronic medical record. You may view this report before your referring provider. If you have questions, please contact your health care provider. INDICATION: Pulmonary emboli, evaluate for DVT. TECHNIQUE: Ultrasound venous duplex bilateral lower extremity. Compression venous exam was performed using holbrook-scale, color Doppler, and spectral Doppler analysis. COMPARISON: None. FINDINGS: Deep veins: Sonographic imaging demonstrates the bilateral common femoral, deep femoral, superficial femoral, popliteal, peroneal, and posterior tibial veins to be fully compressible with normal color Doppler blood flow. Superficial veins: Greater saphenous veins are fully compressible. No popliteal cyst. IMPRESSION: No evidence of deep venous thrombosis within the evaluated veins of the bilateral lower extremities. Dictated by David Way MD @ 08/14/2024 8:01:38 PM (Electronically Signed) Ordering Physician: Adelaida Cancino M.D. Date of Service: 08/16/24 Procedure(s): US abdomen limited Accession Number(s): [id number] cc: Antonette James M.D.; Adelaida Cancino M.D.~ For Patients: As a result of the Cures Act, medical imaging exams and procedure reports are released immediately into your electronic medical record. You may view this report before your referring provider. If you have questions, please contact your health care provider. Indication: nausea, heartburn Technique: Multiple transverse and longitudinal sonographic grayscale images of the right upper quadrant of the abdomen were obtained, supplemented with color, power, and spectral Doppler imaging. Comparison: 08/14/2024. Findings: Slightly suboptimal examination secondary to habitus. Pancreas: Visualized portions normal. Liver length: 15.4 cm. Liver appearance: Normal. No biliary ductal dilation. Portal vein: Patent, hepatopetal flow. CBD: 0.5 cm. Gallbladder: Negative sonographic Rosales sign. Possible sludge. Right kidney length: 12.5 cm. Right kidney appearance: Normal. Impression: 1. Slightly suboptimal examination secondary to habitus. 2. Possible gallbladder sludge without sonographic evidence of acute cholecystitis. Dictated by Memo Mcdermott MD @ 08/16/2024 5:49:37 PM (Electronically Signed) Labs on day of discharge: Labs from last 24 hours 08/17/24 06:00 WBC 8.48 RBC 4.71 Hgb 13.6 Hct 42.3 MCV 90 MCH 29 MCHC 32 RDW Coeff of Jayna 14.0 Plt Count 224 Neut % (Auto) 59.0 Lymph % (Auto) 28.1 [place] % (Auto) 7.1 Eos % (Auto) 4.6 Baso % (Auto) 0.5 Neut # (Auto) 5.01 Lymph # (Auto) 2.38 [place] # (Auto) 0.60 Eos # (Auto) 0.39 Baso # (Auto) 0.04 Abs Immat Gran (auto) 0.06 Imm/Tot Granulo (auto) 0.7 VBG pH 7.399 VBG pCO2 54 H VBG pO2 30.1 VBG HCO3 33 H Sodium 139 Potassium 4.3 Chloride 101 Carbon Dioxide 33 H Anion Gap 5 L BUN 22 Creatinine 1.1 Estimated Creat Clear 45.20 Estimated GFR 56 Glucose 103 Calcium 8.8 Discharge Plan Discharge Disposition: Home, Self-Care Date of Admission: 08/14/24 19:57 Attending Provider on Discharge: Adelaida Cancino Primary Care Provider: Antonette James Condition: Improved Anticipated Discharge Date/Time: 08/17/24 11:00 Discharge Medications: New apixaban 5 mg (74 tabs) tablets,dose pack See Rx Instructions .ROUTE .COMPLEX Qty: 74 0RF Rx Instructions: orally per package directions nystatin 100,000 unit/gram Powder 1 applic topical BID Qty: 30 0RF Continued fluticasone propionate [Aller-Aj] 50 mcg/actuation spray,suspension 2 spray intranasal DAILY Patient Comments: in each nostil Rx Instructions: administer into each nostril trimethoprim 100 mg tablet 100 mg PO DAILY Patient Comments: to prevent UTI ipratropium-albuterol 0.5 mg-3 mg(2.5 mg base)/3 mL solution for nebulization 3 ml inhalation Q6H PRN cyclobenzaprine 10 mg tablet 10 mg PO 3XD PRN albuterol sulfate 2.5 mg /3 mL (0.083 %) solution for nebulization 2.5 mg inhalation Q4H PRN Patient Comments: [NO ORIGINAL SIG] budesonide 0.5 mg/2 mL suspension for nebulization 0.5 mg inhalation Q12H PRN Patient Comments: [NO ORIGINAL SIG] hydrochlorothiazide 25 mg tablet 25 mg PO DAILY epinephrine 0.3 mg/0.3 mL auto-injector 0.3 ml IM DAILY PRN albuterol sulfate 90 mcg/actuation HFA aerosol inhaler 2 puff inhalation BID fluticasone propion-salmeterol [Advair HFA] 115-21 mcg/actuation HFA aerosol inhaler 2 puff inhalation BID insulin degludec [Tresiba U-100 Insulin] 100 unit/mL solution 68 unit subcut HS Trulicity 3 mg/0.5 mL pen injector 3 mg subcut QWEEK Patient Comments: Mondays metoprolol succinate 50 mg tablet extended release 24 hr 50 mg PO DAILY simvastatin 10 mg tablet 10 mg PO QPM omeprazole 40 mg capsule,delayed release(DR/EC) 40 mg PO BID levothyroxine 50 mcg tablet 50 mcg PO DAILY insulin lispro [Humalog U-100 Insulin] 100 unit/mL solution subcut .wm Patient Comments: Sliding scale ondansetron 4 mg tablet,disintegrating 4 mg PO Q8H PRN (Reason: nausea/vomiting) sertraline 50 mg tablet 100 mg PO DAILY Discontinued aspirin 81 mg tablet,delayed release (DR/EC) 162 mg PO DAILY cephalexin 500 mg capsule 500 mg PO QID nystatin 100,000 unit/gram cream 1 applic topical BID PRN Discharge Orders: Discharge Order (Routine); Ordered 08/17/24 Ordered By: Adelaida Cancino Patient Education: Nystatin (On the skin), Apixaban (By mouth), Pulmonary Embolism (DC), Hypoxia (ED) Additional Instructions: Home oxygen per instructions Activity Level: Activity as Tolerated Discharge Diet: Regular Follow Up Appointments: Antonette Jaems MD [Primary Care Provider] - (Friday ) David Sandhu MD [Referring] - 08/20/24 11:15 am ([facility] for follow-up. Primary was not available. ) Forms: [employer] Info Instructions
[2024-08-17] MEDS: MAG HYDROX/ALUMINUM HYD/SIMETH 30 ML ORAL.SUSP 15 ML PO (10:19)
[2024-08-17] MEDS: ONDANSETRON ODT 4 MG TAB PO (10:19)
[2024-08-17 11:00] VITALS: BP 122/63; PULSE 88; RESP 18; O2SAT 90
== END 2024-08-17 13:35 | disposition home or self-care (01) | DRG 134 ==
LOC: ED 17:58 → MEDSURG 18:16
PROVIDERS: Family Medicine; Admitting Provider Family Medicine; Emergency Provider Emergency Medicine; PCP Family Medicine; Visit Provider Family Medicine
DX: I26.99 Other pulmonary embolism without acute cor pulmonale (principal); J96.22 Acute and chronic respiratory failure with hypercapnia; J96.21 Acute and chronic respiratory failure with hypoxia; I27.20 Pulmonary hypertension, unspecified; N39.0 Urinary tract infection, site not specified; B96.20 Unspecified Escherichia coli [E. coli] as the cause of diseases classified elsewhere; E66.2 Morbid (severe) obesity with alveolar hypoventilation; R10.13 Epigastric pain; Z68.45 Body mass index [BMI] 70 or greater, adult; K21.9 Gastro-esophageal reflux disease without esophagitis; R11.0 Nausea; J45.909 Unspecified asthma, uncomplicated; E11.9 Type 2 diabetes mellitus without complications; Z79.4 Long term (current) use of insulin; Z79.85 Long-term (current) use of injectable non-insulin antidiabetic drugs; R91.1 Solitary pulmonary nodule; I10 Essential (primary) hypertension; M51.16 Intervertebral disc disorders with radiculopathy, lumbar region
CPT/HCPCS: 36415; 71275; 74177; 76705; 80048; 80053; 80076; 81001; 82803; 82962; 83605; 83690; 83880; 84484; 85025; 87086; 87631; 93005; 93306; 93970; 99285; A9270; J1815; J1938; Q9957; Q9967